=== PATIENT | male | born 1955 | race Caucasian/White ===

== ENCOUNTER 2016-11-27 13:20 | Inpatient (IN) | payer MEDICAID ==
[~2016-11-27] VITALS: Ht 210.8 cm; Wt 213.9 kg
[2016-11-27] VITALS (9 sets, daily range): BP systolic 104–132; BP diastolic 47–84; PULSE 68–118; RESP 12–22; O2SAT 91–99
[~2016-11-27 13:20] MED LIST: ASPI81TA3 PO; CHOL200047 PO; FERR325T6 PO; FRSM80T PO; MAGN30TA3 PO; MULT-1073 PO; NITR0.4T6 SL; OXYC-466 PO; OXYM10TA10 PO; PRD5T PO; TAMS0.4C98 PO; WARF10TA4 PO
[2016-11-27 13:45] LABS: EOSINOPHILS % (AUTO) 2.4 % (0-5); MONOCYTES % (AUTO) 12.9 % (4-12); Mean Corpuscular Hemoglobin 26.9 pg (27.0-35.0); Mean Corpuscular Volume 84.7 fL (81-100); Platelet Count 324 bil/L (150-400)
--- NOTE | 2016-11-27 13:53 | ED.REPORT ---
HPI-Dizziness / Weakness Date of Service Nov 27, 2016 ED Provider: History of Present Illness: 61yo morbidly obese male with several days of worsening weakness. He feels full after small oral intake. Had normal BM yesterday. he is currently being treated with cipro and wound vac for R ankle chronic ulcer. Nursing Notes Stated Complaint: WEAKNESS, CELLULITIS Chief Complaint: General Complaint Nursing Notes Reviewed: Yes Allergies: Coded Allergies: Penicillins (Verified Allergy, Unknown, Unknown, 08/01/16) Scheduled Aspirin Chew (Aspirin Chew) 81 Mg Chew 81 MG PO DAILY Cholecalciferol (Vitamin D3) (Vitamin D3) 2,000 Unit Capsule 2,000 UNIT PO DAILY Ciprofloxacin (Ciprofloxacin) 750 Mg Tablet 750 MG PO BID Ferrous Sulfate (Ferrous Sulfate) 325 Mg Tablet.dr 325 MG PO BID Furosemide (Furosemide) 80 Mg Tab 80 MG PO BID Magnesium (Magnesium) 30 Mg Tablet 30 MG PO DAILY Multivits-Min/FA/Lycopene/Lut (Centrum Silver Tablet) 1 Each Tablet 1 EACH PO DAILY Oxymorphone (Oxymorphone) 10 Mg Tablet 10 MG PO BID Tamsulosin (Flomax) 0.4 Mg Capsule 0.4 MG PO HS Warfarin Sodium (Warfarin Sodium) 10 Mg Tablet 7.5 MG PO DAILY Scheduled PRN Nitroglycerin SL (Nitroglycerin SL) 0.4 Mg Tab.subl 0.4 MG SL Q5MIN PRN PRN For Chest Pain Prednisone (PredniSONE) 5 Mg Tab 5-10 MG PO DAILY PRN PRN RA flare up oxyCODONE-Acetaminophen 10-325 mg (oxyCODONE-Acetaminophen 10-325 mg) 1 Each Tablet 2 TABLET PO Q6H PRN PRN For Pain General Time Seen by MD: 13:46 Chief Complaint Other (generalized weakness) Hx Obtained From: Patient Arrived By: Walk-in Onset Occurred: 3 days ago Symptom Duration: Waxes and wanes Location: : No pain Severity: Current: No pain currently Recent Healthcare: Recent doctor visit, Previous diagnosis Similar Sx Previous: Yes Risk Factors CVA Risk Stratification Age >60 Anticoag/bleed diathesis Atrial fibrillation Diabetes mellitus Hypertension WALTER for STEMI DM / HTN / Angina (1), HR > 100 bpm (2) WALTER for STEMI Score: 3 pts (4.4% 30d mort) Past Medical History Past Medical History Past Medical History 1. Morbid obesity (BMI 51) -Largely immobile and in wheelchair 2. History of chronic right lower extremity DVT in July 2013. -Currently on Coumadin -Associated with chronic venous insufficiency 3. Stage III chronic kidney disease with baseline creatinine of around 1.5 4. Rheumatoid arthritis -Previously on prednisone 5. Type II diabetes mellitus -Diet managed 6. Atrial tachycardia with variable rate 7. Cardiomyopathy (LVEF 30-35%) -Unclear if ischemic or tachycardia induced. 8. Peripheral neuropathy 9. Charcot joint of left leg 10. History of BPH 11. History of atrial flutter ablation status post cardioversion in 2006 Reports: Congestive heart failure Past Surgical History hiatal hernia repair left arm fracture repair carpal tunnel kidney stone removal Cardiac ablation Family History noncontributory Smoking History Never Smoker Social History Drug Use: Denies drug use Other Social History: Local resident Ambulatory Status Wheelchair Review of Systems Constitutional: Denies: Chills, Fever Respiratory: Denies: Shortness of breath Cardiovascular: Reports: Chest pain, Edema GI: Reports: Abdominal pain, Denies: Bloody/tarry stool, Diarrhea, Hematemesis, Hematochezia, Vomiting Physical Exam Physical Exam Notes: R ankle wound vac noted Initial Vital Signs Vital Signs (First) Date Time Temp Pulse Resp B/P Pulse Ox O2 Delivery O2 Flow Rate FiO2 11/27/16 13:25 36.6 118 22 118/63 99 Room Air Initial VS: Reviewed, Vital signs abnormal General/Constitutional: Awake, Alert Appearance / Presentation: Positive: Debilitated, Obese, morbidly, Pale Respiratory / Chest: Breath sounds NL, Breath sounds = bilat, No respiratory distress Cardiovascular: Heart sounds NL Heart Rate / Rhythm: Positive: Tachycardia ENT: Airway patent, Mucous membranes moist, Pharynx NL Neck: Supple, No adenopathy, No JVD Abdomen: Soft, Non-tender Interpretation & Diagnostics Lab Results Interpretation Result Diagram: 11/27/16 1330 11/27/16 1330 Test 11/27/16 13:30 11/27/16 14:07 11/27/16 14:31 11/27/16 14:32 White Blood Count 5.8th/mm3 (3.8-10.1) Red Blood Count 4.43mil/mm3 (4.40-5.80) Hemoglobin 11.9g/dL (13.8-17.2) Hematocrit 37.5% (41.0-50.0) Mean Corpuscular Volume 84.7fL (81-100) Mean Corpuscular Hemoglobin 26.9pg (27.0-35.0) Mean Corpuscular Hemoglobin Concent 31.7% (32.0-37.0) Red Cell Distribution Width 15.4% (12.3-15.4) Platelet Count 324bil/L (150-400) Neutrophils (%) (Auto) 66.0% (40-74) Lymphocytes (%) (Auto) 15.5% (14-46) Monocytes (%) (Auto) 12.9% (4-12) Eosinophils (%) (Auto) 2.4% (0-5) Basophils (%) (Auto) 1.0% (0-3) Sodium Level 135mEq/L (134-144) Potassium Level 3.3mEq/L (3.5-5.2) Chloride Level 90mEq/L (97-108) Carbon Dioxide Level 27mmol/L (18-29) Blood Urea Nitrogen 30mg/dL (8-27) Creatinine 2.13mg/dL (0.76-1.27) Estimat Glomerular Filtration Rate 34mL/min (>59) Glucose Level 192mg/dL (60-99) Calcium Level 9.2mg/dL (8.5-10.1) Magnesium Level 2.0mg/dL (1.6-2.6) Total Bilirubin 0.5mg/dL (0.0-1.2) Aspartate Amino Transf (AST/SGOT) 35U/L (0-50) Alanine Aminotransferase (ALT/SGPT) 15U/L (0-44) Alkaline Phosphatase 87U/L (25-160) Total Protein 8.5g/dL (6.4-8.4) Albumin 3.4g/dL (3.4-5.0) Lactic Acid Level 2.8mmol/L (0.4-2.0) Prothrombin Time 24.9sec (8.1-12.5) Prothromb Time International Ratio 2.29ratio Troponin T 0.025ug/L (0.0-0.011) Lipase 25U/L (13-60) General Lab Results Interp 1: Labs reviewed ECG Interpretation ECG Interpretation: A-fib with a rate of 91 Normal intervals Normal axis with ST depression in V1, V2, V3 New changes from prior EKG in 08/01/2016 Time: 14:46 Interpreted by: ED physician Normal ECG Interpretation: Normal axis, Normal intervals X-Ray Chest Interpretation Chest Xray Interpretation: IMPRESSION: Acute disease is seen in the chest compared to previous x-rays. Dictated by: Dheeraj House M.D. on 11/27/2016 at 15:21 View: Portable, 1 view Interpretation / Wet Read by: Interpret - Radiologist X-Ray Abdominal Interpretation IMPRESSION: Acute disease is not seen in the flatplate of the abdomen. Previous right lower quadrant hernia repair. Dictated by: Dheeraj House M.D. on 11/27/2016 at 15:05 Study: KUB Interpretation / Wet Read by: Interpret - Radiologist Re-Eval/Medical Decision Med Decision/Clinical Course This is a chronically outpatient he is having difficulty staying hydrated. He now has acute renal failure. He was also complaining of some chest fullness after eating which should be cardiac in nature, his first troponin is somewhat elevated. It is a difficult to know what this one troponin means given his new renal failure, he will need to have his troponin trended. The patient is already on warfarin so was not started on heparin. The patient no longer has chest discomfort. He will need some hydration for his acute renal failure. According to him his other medical problems are stable for him and his leg is continuing to improve. Re-Evaluation/Progress : Time of Eval: 14:32 Patient Status: Condition unchanged Re-Evaluation/Progress Note: Pt. was rechecked and he is resting. RAHUL Martinez's history and physical exam reviewed. Pt updated of plan for admission. All concerns and questions have been addressed at this time. Consultation #1: Referral / Consult Name: Tripp Marquez MD Consulted With: Cardiology Call Returned at: 15:16 Broth Mixer: Will see patient, Agrees with eval, Agrees with plan Consultation #2: Referral / Consult Name: Mike Aquino MD Consulted With: Hospitalist Call Returned at: 15:37 Broth Mixer: Will see patient, Agrees with eval, Agrees with plan, Accepts admit Counseled Regarding: Diagnosis, Lab results, Need for admission Patient Discharge & Departure Impression: Primary Impression: ARF (acute renal failure) Acute renal failure type: unspecified Qualified Code: N17.9 - Acute kidney failure, unspecified Additional Impressions: Chest pain Chest pain type: unspecified Qualified Code: R07.9 - Chest pain, unspecified Leg wound, right Encounter type: initial encounter Qualified Code: S81.801A - Unspecified open wound, right lower leg, initial encounter Disposition: ADMITTED TO HOSPITAL Discharge Condition All VS Reviewed: Yes Referrals: Odilon Moore DO (PCP) Scribe Attestation Portions of this note were transcribed by Sandra Wilkes and Lucy Chin. I, (Dr. Krishnamurthy) personally performed the history, physical exam and medical decision- making; I reviewed and confirmed the accuracy of the information in the transcribed note. Signed by: Sandra Wilkes. 11/27/2016, 1620 Odilon Moore Christopher R PAC Nov 27, 2016 13:53 Lucy Gupta [Angelika] Nov 27, 2016 14:47 Sandra Wilkes Nov 27, 2016 15:59 Tiffany Krishnamurthy MD Nov 27, 2016 18:31
[2016-11-27] MEDS ORDERED: 0.9% Sodium Chloride 1,000 ML IV ONE (13:54)
[2016-11-27 14:39] LABS: INR 2.29 ratio
[2016-11-27] MEDS ORDERED: 0.9% Sodium Chloride 500 ML IV ONE (14:45)
[2016-11-27 14:46] LABS: TROPONIN T 0.025 ug/L (0.0-0.011)
[2016-11-27] MEDS ORDERED: Nitroglycerin 2% 1 Gm Ointment TOPICAL ONE (14:55)
--- NOTE | 2016-11-27 15:07 | DRSVH ---
PROCEDURE: X-RAY KUB ([id number]) INDICATIONS: pain TECHNIQUE: One view of the abdomen acquired. COMPARISON: None. FINDINGS: Surgical changes and devices: Markings consistent with hernia repair are present in the right lower a bdomen. Bowel: Bowel gas pattern is normal. Soft tissues: No suspicious abdominal calcifications. Visualized solid organ contours appear normal in size. Bones: No suspicious bony lesions. IMPRESSION: Acute disease is not seen in the flatplate of the abdomen. Previous right lower quadrant hernia repair. Dictated by: Dheeraj House M.D. on 11/27/2016 at 15:05 Approved by: Dheeraj House M.D. on 11/27/2016 at 15:05
--- NOTE | 2016-11-27 15:23 | DRSVH ---
PROCEDURE: X-RAY CHEST ONE VIEW, PORTABLE ([id number]) INDICATIONS: chest discomfort TECHNIQUE: One view of the chest was acquired. COMPARISON: [facility], CR, XR CHEST 1VW (PORTABLE), 02/28/2016, 3:19. [facility], CR, XR CHEST 1VW (PORTABLE), 08/04/2016, 15:31. FINDINGS: Chest rotated. Surgical changes and devices: library monitor leads are seen over the chest. Lungs and pleura: No pleural effusions or pneumothorax. Lungs are clear of acute changes. There are chronic changes at both lung bases.. Mediastinum: Mediastinal contours appear normal. Heart size is normal. Bones and chest wall: No suspicious bony lesions. Overlying soft tissues appear unremarkable. IMPRESSION: Acute disease is seen in the chest compared to previous x-rays. Dictated by: Dheeraj House M.D. on 11/27/2016 at 15:21 Approved by: Dheeraj House M.D. on 11/27/2016 at 15:21
[2016-11-27] MEDS ORDERED: Alum-Mag Hydrox-Simeth 30 mL Suspension PO PRN (16:20)
[2016-11-27] MEDS ORDERED: Polyethylene Glycol (PEG) 17 Gm Powder PO PRN (16:20)
[2016-11-27] MEDS ORDERED: Ondansetron 2 mg/mL 2 mL Inj IVPUSH PRN (16:20)
[2016-11-27] MEDS ORDERED: Potassium Chloride 20 mEq SR Tablet PO ONE (16:30)
[2016-11-27] MEDS ORDERED: oxyCODONE-Acetamin 10-325 mg Tablet PO PRN (16:35)
--- NOTE | 2016-11-27 17:03 | PCM.PHAPRO ---
Progress Date of Service: Nov 27, 2016 Requesting Provider: Arnoldo Millard DDS H/O A Fib, H/O DVT, H/O PE warfarin dosing inr range 2-3 will continue warfarin home dose warfarin 10mg po daily INR to be ordered daily Yoandy Dietz [facility] Nov 27, 2016 17:03
[2016-11-27] MEDS ORDERED: CIPR750T4 PO (18:18)
--- NOTE | 2016-11-27 19:53 | NUR ---
Admission note Report received from ED RN. Pt arrived to room 2025 via stretcher. Pt oriented to room, use of call light. Policies and procedure explained. Pt verbalized understanding. pt A&O x3, Assessment performed and vitals charted. Report given to oncoming RN.
[2016-11-27] MEDS: oxyCODONE-Acetamin 10-325 mg Tablet PO PRN (20:03)
[2016-11-27] MEDS ORDERED: OXYMORPHONE 10 MG PO SCH (20:30)
--- NOTE | 2016-11-27 20:40 | PCM.HPMED ---
Subjective Date of Service Nov 27, 2016 Primary Provider: Admitting Physician: Mike Aquino MD Primary Care Physician: Odilon Moore DO Attending Physician: Mike Aquino MD Admit Status: From the Emergency Department Chief Complaint: 1 week of progressively worsening weakness History of Present Illness: This is a 61-year-old male who is chronically ill but manages to live alone. Over the last week he has become more weak and presents with a complaint of chest pressure when eating. He says that has been around for 8 months but then also says that when he saw his doctor last a month ago he was not experiencing those symptoms. He describes watching TV and then fading out for 2 minutes, not knowing what happened during those 2 minutes. He says this has been worsening. The central chest pain is a tightening symptom that is relieved by belching, and is sometimes related to nausea. He also is disturbed by a painless gurgling that bothers him because he has never had it before. He has never been diagnosed with gastroparesis or heart disease. He has not been on a proton pump inhibitor or nausea medication. His main problem is Charcot joint with disability and persisting right lower leg open ulcer currently being treated with a wound VAC. Dr. Butterfield is his treating physician at the wound care center. 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 There has been no shortness of breath, fevers, dysuria, coughing or muscle aches. His initial troponin is mildly elevated at 0.025, his lactic acid level is also elevated. On EKG there are subtle ST segment depressions in leads V1, V2 and V3. His rhythm is atrial fibrillation with PVCs Review of Systems: Positive for weakness and chest pain. Negative for fevers, chills, sweats, vomiting, shortness of breath, coughing, muscle aches, joint pain, rashes, seizures, bleeding, depression, hearing loss, new allergies. Allergies Coded Allergies: Penicillins (Verified Allergy, Unknown, Unknown, 08/01/16) Home Medications Aspirin Chew (Aspirin Chew) 81 Mg Chew 81 MG PO DAILY Cholecalciferol (Vitamin D3) (Vitamin D3) 2,000 Unit Capsule 2,000 UNIT PO DAILY Ferrous Sulfate (Ferrous Sulfate) 325 Mg Tablet.dr 325 MG PO BID Furosemide (Furosemide) 80 Mg Tab 80 MG PO BID Magnesium (Magnesium) 30 Mg Tablet 30 MG PO DAILY Multivits-Min/FA/Lycopene/Lut (Centrum Silver Tablet) 1 Each Tablet 1 EACH PO DAILY Oxymorphone (Oxymorphone) 10 Mg Tablet 10 MG PO BID Tamsulosin (Flomax) 0.4 Mg Capsule 0.4 MG PO HS Warfarin Sodium (Warfarin Sodium) 10 Mg Tablet 10 MG PO DAILY Scheduled PRN Nitroglycerin SL (Nitroglycerin SL) 0.4 Mg Tab.subl 0.4 MG SL Q5MIN PRN PRN For Chest Pain Prednisone (PredniSONE) 5 Mg Tab 5-10 MG PO DAILY PRN PRN RA flare up oxyCODONE-Acetaminophen 10-325 mg (oxyCODONE-Acetaminophen 10-325 mg) 1 Each Tablet 2 TABLET PO Q6H PRN PRN For Pain PMH 1. Morbid obesity (BMI 51) -Largely immobile and in wheelchair 2. History of chronic right lower extremity DVT in July 2013. -Currently on Coumadin indefinitely -Associated with chronic venous insufficiency 3. Stage III chronic kidney disease with baseline creatinine of around 1.5 4. Rheumatoid arthritis -Previously on prednisone 5. Type II diabetes mellitus -Diet managed 6. Atrial tachycardia with variable rate 7. Cardiomyopathy (LVEF 30-35%) -Unclear if ischemic or tachycardia induced. 8. Peripheral neuropathy 9. Charcot joint of left leg 10. History of BPH 11. History of atrial flutter ablation status post cardioversion in 2006 12. Diabetes Type 2 on diet control 13. Chronic leg edema from Lymphedema . Surgical History Surgical History hiatal hernia repair left arm fracture repair carpal tunnel kidney stone removal Cardiac ablation Family History Family History His mother had heart failure Social History Hx Alcohol Use: No Hx Substance Use: No Hx Tobacco Use: No Smoking Status: Never Smoker Additional Information His attending is at the residency clinic in [place] Dr. Ramos Exam Vital Signs Vital Sign - Last Date Time Temp Pulse Resp B/P Pulse Ox O2 Delivery O2 Flow Rate FiO2 11/27/16 15:52 81 14 104/47 96 Room Air 11/27/16 13:25 36.6 Exam He is alert, oriented 3, in no apparent distress. He is 6 foot 11 inches and definitely needs the large bed he is using in the room. Pupils are equally round and reactive to light and accommodation. Extraocular muscles are intact. Sclera are pink and nonicteric. Throat looks normal. No lymph nodes are felt head, neck, supraclavicular area. There is no thyromegaly JVD is less than 6 cm No carotid bruits are heard Heart is regular rate and rhythm without murmur Lungs are clear to auscultation bilaterally Abdomen soft, bowel sounds positive, nontender, no organomegaly. Extremities are both abnormal. The left foot is obviously deformed and a Charcot pattern. There is a walking boot in place that extends up to the knee. This is well padded. The right foot is in a triple wrap with a wound VAC line going on to the lateral aspect of the foot where there is a small amount of dark drainage seeping through the layers of the wrap. There is no jaundice. Cranial nerves II through XII tested intact. Upper extremity strength is normal at 5 out of 5. There is no tremor. Lab and Diagnostics Labs Laboratory Tests 72 Hours Test 11/27/16 13:30 11/27/16 14:07 11/27/16 14:31 11/27/16 14:32 White Blood Count 5.8th/mm3 (3.8-10.1) Red Blood Count 4.43mil/mm3 (4.40-5.80) Hemoglobin 11.9g/dL (13.8-17.2) Hematocrit 37.5% (41.0-50.0) Mean Corpuscular Volume 84.7fL (81-100) Mean Corpuscular Hemoglobin 26.9pg (27.0-35.0) Mean Corpuscular Hemoglobin Concent 31.7% (32.0-37.0) Red Cell Distribution Width 15.4% (12.3-15.4) Platelet Count 324bil/L (150-400) Neutrophils (%) (Auto) 66.0% (40-74) Lymphocytes (%) (Auto) 15.5% (14-46) Monocytes (%) (Auto) 12.9% (4-12) Eosinophils (%) (Auto) 2.4% (0-5) Basophils (%) (Auto) 1.0% (0-3) Sodium Level 135mEq/L (134-144) Potassium Level 3.3mEq/L (3.5-5.2) Chloride Level 90mEq/L (97-108) Carbon Dioxide Level 27mmol/L (18-29) Blood Urea Nitrogen 30mg/dL (8-27) Creatinine 2.13mg/dL (0.76-1.27) Estimat Glomerular Filtration Rate 34mL/min (>59) Glucose Level 192mg/dL (60-99) Calcium Level 9.2mg/dL (8.5-10.1) Magnesium Level 2.0mg/dL (1.6-2.6) Total Bilirubin 0.5mg/dL (0.0-1.2) Aspartate Amino Transf (AST/SGOT) 35U/L (0-50) Alanine Aminotransferase (ALT/SGPT) 15U/L (0-44) Alkaline Phosphatase 87U/L (25-160) Total Protein 8.5g/dL (6.4-8.4) Albumin 3.4g/dL (3.4-5.0) Lactic Acid Level 2.8mmol/L (0.4-2.0) Prothrombin Time 24.9sec (8.1-12.5) Prothromb Time International Ratio 2.29ratio Troponin T 0.025ug/L (0.0-0.011) Lipase 25U/L (13-60) Result Diagram: 11/27/16 1330 11/27/16 1330 X-Rays, CTs and MRIs X-RAY CHEST ONE VIEW, PORTABLE ([id number]) INDICATIONS: chest discomfort TECHNIQUE: One view of the chest was acquired. COMPARISON: [facility], CR, XR CHEST 1VW (PORTABLE), 02/28/2016, 3: 19. [facility], CR, XR CHEST 1VW (PORTABLE), 08/04/2016, 15:31. FINDINGS: Chest rotated. Surgical changes and devices: quality assurance monitor leads are seen over the chest. Lungs and pleura: No pleural effusions or pneumothorax. Lungs are clear of acute changes. There are chronic changes at both lung bases.. Mediastinum: Mediastinal contours appear normal. Heart size is normal. Bones and chest wall: No suspicious bony lesions. Overlying soft tissues appear unremarkable. IMPRESSION: Acute disease is seen in the chest compared to previous x-rays. Dictated by: Dheeraj House M.D. on 11/27/2016 at 15:21 Additional Diagnostics: X-RAY KUB ([id number]) INDICATIONS: pain TECHNIQUE: One view of the abdomen acquired. COMPARISON: None. FINDINGS: Surgical changes and devices: Markings consistent with hernia repair are present in the right lower abdomen. Bowel: Bowel gas pattern is normal. Soft tissues: No suspicious abdominal calcifications. Visualized solid organ contours appear normal in size. Bones: No suspicious bony lesions. IMPRESSION: Acute disease is not seen in the flatplate of the abdomen. Previous right lower quadrant hernia repair. Dictated by: Dheeraj House M.D. on 11/27/2016 at 15:05 Assessment & Plan Weakness/Elevated Lactic Acid Level -Workup so far has not shown a clear cause other than his chronic illness factors. -Recheck pertinent labs in the morning. -completing 10 day course of Levaquin for his leg tomorrow. Postprandial Chest Tightness -Repeat troponin and evaluate for acute coronary syndrome although unlikely. -Begin treatment for potential acid reflux/gastroparesis with omeprazole and Reglan. -He reports a negative EGD and colonoscopy just 5 months ago at [facility]. -Consider gastric emptying study. Diet Controlled DM II -Follow blood sugars with correctional scale if needed. Right lower leg open wound -Continue wound care with podiatry -Continue wound VAC with dressing changes. ARR/hypokalemia -Repeat BMP in the morning. -Additional oral potassium tonight. Chronic right leg DVT/atrial tachycardia with variable rate -Continue therapeutic dosing with Coumadin. Chronic Lymphedema -Continue Lasix Hernando Aquino MD VTE Prophylaxis: Theraputic Anticoag with Warfarin Resuscitation Status: CPR: Attempt Resuscitation Mike Aquino MD Nov 27, 2016 16:34
[2016-11-28] VITALS (9 sets, daily range): BP systolic 106–123; BP diastolic 60–74; PULSE 63–94; RESP 16–19; O2SAT 95–98
[2016-11-28] MEDS: oxyCODONE-Acetamin 10-325 mg Tablet PO PRN ×4 (02:07→20:47)
--- NOTE | 2016-11-28 04:06 | NUR ---
Pain/Wound Vac Patient reporting 4/10 pain in his chronic wounds overnight. Percocet 10-325 given with no improvement in patient's subjective pain rating; patient states that he takes two tablets of this medication at home instead of one. MD paged regarding dosing of this medication. Per Dr. Aquino, dosing to remain at 1 tablet q 6 hours PRN due to patient's statement to the MD that he has been having episodes at home of "losing a few minutes" while watching TV; significant concern that patient is taking too much of his narcotic pain medications at home. Explained this to the patient, who felt that his episodes of apparent altered consciousness and memory are not related to his narcotic dosing. Patient has his personal wound vac on wound to right foot; he did not bring the power adapter for this piece of equipment and the battery has run down overnight. He states that he usually uses a wound vac provided by wound care during hospital stays. Advised that we would contact wound care in the morning to get a hospital wound vac set up for him. Continue to monitor.
[2016-11-28 04:55] LABS: INR 2.58 ratio
[2016-11-28 05:34] LABS: TROPONIN T 0.017 ug/L (0.0-0.011)
[2016-11-28] MEDS: Pantoprazole 40 mg ER24 Tablet PO SCH (08:26)
[2016-11-28] MEDS ORDERED: Non-Formulary Medication (Warfarin Sodium 10 MG) PO SCH (08:30)
[2016-11-28] MEDS ORDERED: MAGNESIUM 30 MG PO SCH (08:30)
[2016-11-28] MEDS ORDERED: [UNRECOGNIZED DRUG - MIXTURE] PO SCH (08:30)
--- NOTE | 2016-11-28 10:19 | NUR ---
AM Lasix PT states he takes 40mg Lasox BID, he was on 80 but his BP dropped too low so the tumbler plater said 40mg BID is fine. Administered 40mg this am, will mention to MD when rounding to clarify dosage.
[2016-11-28] MEDS ORDERED: Potassium Chloride 20 mEq/15 mL 15mL Oral Soln PO ONE (11:35)
--- NOTE | 2016-11-28 12:59 | NUR ---
Wound Care Wound evaluation order received , pt seen at bedside. Pt has been followed at the wound center for a lengthy period of time, Dr Butterfield managing his left ankle and Dr Cuellar managing his right lower leg ulcer. NPWT dressing removed from patients right lateral lower leg. Wound measures 12 cm x 5 cm x 0.1 cm. Base- 100% granular. Drainage- sanguineous, no odor. Periwound- intact, no induration, no erythema. Redressed wound with white foam to wound bed, 125 mmHg continuous therapy, a good seal was attained.
--- NOTE | 2016-11-28 14:05 | PCM.PHAPRO ---
Progress Date of Service: Nov 28, 2016 1 week of progressively worsening weakness Warfarin Management Per Pharmacy: Indication: DVT prophylaxis as patient has history of chronic L LE DVT (07/2013) , and stroke prophylaxis as patient now with atrial fibrillation ([id number] = 2) Goal INR: 2.0-3.0 Home Dose: Warfarin 7.5 mg PO daily Labs: Hgb/Hct: 11.9/37.5 Plt: 324 INR: 2.58 Drug-Drug Interactions: Cipro 750 mg PO BID (10 day course) Date -Nov 28-Nov INR 2.29 2.58 Warf Dose 10mg 6 MG Recommendation: Warfarin 6 mg PO x 1 tonight Pharmacy to continue to monitor for signs/symptoms of bleeding. Thank You, Alivia Ferreira, Pharm D. Alivia Ferreira Nov 28, 2016 14:05
[2016-11-28 14:34] LABS: APPEARANCE,URINE CLEAR (CLEAR,HAZY); COLOR,URINE STRAW (YELLOW); OCCULT BLOOD,URINE NEGATIVE (NEGATIVE); PH,URINE 6.5 (5.0-8.0); UROBILINOGEN,URINE NORMAL (NORMAL)
--- NOTE | 2016-11-28 14:38 | NUR ---
Post residual PT voided 350 out via urinal. I bladder scanned him and he had a post residual of 6mls. Will inform MD when rounding.
--- NOTE | 2016-11-28 16:55 | DRSVH ---
PROCEDURE: US ABDOMEN ([id number]) INDICATIONS: RAYMOND and RUQ pain TECHNIQUE: Real-time scanning was performed of the abdominal and retroperitoneal organs, with image documentatio n. COMPARISON: [facility], CT, CT ABD PELVIS W CON, 12/06/2015, 23:11. FINDINGS: Liver: Liver is normal in size and demonstrates diffuse increased echotexture. The right hepatic lo be is suboptimally visualized due to the patient's body habitus. Gallbladder: There are gallstones. The bladder wall is mildly thickened measuring 3.6 mm. No perichol ecystic fluid collection or sonographic Moeller sign. Biliary ducts: Intrahepatic bile ducts are non-dilated. Extrahepatic bile duct caliber is not visua lized. Pancreas: Pancreas is not visualized. Spleen: Spleen is enlarged measuring 16.9 cm with an estimated volume of 1081 cubic centimeter. Kidneys: Kidneys are normal in size and echotexture. Right kidney measures 15.9 cm long; left kidne y measures 12.7 cm long. Bilateral renal cortical thinning and increased cortical echogenicity. There are multiple renal calculi bilaterally. No hydronephrosis. There is a simple cyst in the inferior p ole of the right kidney measuring 7.0 x 5.4 x 6.5 cm. No solid masses. Aorta: Visualized aorta is normal in caliber at less than 3 cm. Iliacs: Proximal common iliac arteries are no visualized. IVC: Not visualized. Miscellaneous: No free abdominal fluid. IMPRESSION: 1. Limited examination due to morbid obesity. 2. Diffusely increased hepatic echotexture. This finding is most likely secondary to hepatic fatty i nfiltration although other hepatocellular disease may have a similar appearance. Recommend clinical c orrelation. 3. Cholelithiasis. There is mild gallbladder wall thickening but no pericholecystic fluid collection nor sonographic Moeller's sign. Cannot rule out early acute cholecystitis. 4. Splenomegaly. 5. Nephrolithiasis bilaterally. No hydronephrosis. 6. There is bilateral renal cortical thinning and increased renal cortical echogenicity suggesting me dical renal disease. 7. A large simple cyst in right kidney measuring 7.0 x 5.4 x 6.5 cm Dictated by: Naya Orr M.D. on 11/28/2016 at 16:54 Transcribed by: ELA on 11/28/2016 at 16:54 Approved by: Naya Orr M.D. on 11/28/2016 at 20:01
[2016-11-28] MEDS: 0.9% NaCl + KCl 20 mEq/L 1,000 ML IV SCH (16:56)
--- NOTE | 2016-11-28 17:12 | PCM.CHPMED ---
Subjective Date of Service: Nov 28, 2016 Primary Physician: Admitting Physician: Mike Aquino MD Primary Care Physician: Odilon Moore DO Attending Physician: Mike Aquino MD Chief Complaint: Chief Complaint: abdominal discomfort History of Present Illness: This is a very pleasant 61-year-old male with significant past medical history of chronic kidney disease stage III, type II diabetes, morbid obesity, hypertension, chronic systolic heart failure, presented to the hospital due to weakness and abdominal discomfort. Patient reports having abdominal discomfort and nausea for several months. He stated that it feels like he has stomach flu. He has no vomiting. He has early satiety. He has small portion of meals, more frequent. He does not know whether he has gall stone. He mentioned that he had upper EDG and colonoscopy performed months ago at [facility]. The result was nondiagnostic. He is also complaining of weakness. His initial BP was on the low side. He has been on lasix 80 mg BID for chronic LE edema. He was told he has stage 3 CKD, GFR 50%. Per record, his baseline serum cr was 1-1.2. He came in with serum cr of 2.13. The value today was 1.84. He has no F/C/CP/SOB. He has small BM every day. PMH 1. Morbid obesity 2. History of chronic right lower extremity DVT in July 2013. 3. Stage III chronic kidney disease 4. Rheumatoid arthritis 5. Type II diabetes mellitus 6. Cardiomyopathy (LVEF 30-35%) 7. Peripheral neuropathy 8. Charcot joint 9. History of BPH 10. History of atrial flutter ablation status post cardioversion in 2006 11. Chronic leg edema from Lymphedema Surgical History hiatal hernia repair left arm fracture repair carpal tunnel kidney stone removal Cardiac ablation Right Leg injury with hematoma status post right lower extremity hematoma evacuation, Family History His mother had heart failure Social History Hx Alcohol Use: No Hx Substance Use: No Hx Tobacco Use: No Smoking Status: Never Smoker Additional Information PMH Bedside Blood Glucose: 121 Allergies: Coded Allergies: Penicillins (Verified Allergy, Unknown, Unknown, 08/01/16) Social History Hx Alcohol Use: NoHx Substance Use: NoHx Tobacco Use: No Smoking Status: Never Smoker Exam Vital Signs Vital Sign - Last Date Time Temp Pulse Resp B/P Pulse Ox O2 Delivery O2 Flow Rate FiO2 11/28/16 16:40 36.5 70 16 117/72 98 Room Air Intake and Output 11/27/16 11/27/16 11/28/16 Cumulative From/Thru 15:00 23:00 07:00 11/27/16 13:25 - 11/28/16 05:25 Intake Total 500 ml 690 ml 1190 ml Output Total 400 ml 1250 ml 1650 ml Balance 100 ml -560 ml -460 ml Intake Oral 690 ml 690 ml IV Total 500 ml 500 ml Output Urine Total 400 ml 1250 ml 1650 ml General: Alert, Oriented X3, Cooperative, Tall and Obese man in no distress Eyes: PERRLA, Scleral Anicteric Mouth: Mouth Normal, Mucous Membranes Moist/[place] Neck: Supple, no Thyromegaly, trachea central. Chest & Lungs: Clear to auscultation & percussion, No adventitious breath sounds, no crackles, no wheeze Cardiovascular: Normal S1, Normal S2, No Murmurs/Rubs/Gallops, Regular Rate/ Rhythm Pulses: Radial (present and equal), Dorsalis Pedi (present and equal) Abdomen: Soft, Non-tender, Non-distended, Normoactive bowel tones. Musculoskeletal: Unremarkable. Normal range of motion, no swollen or erythematous joints Extremities: dry, flaky skin, BLAZE wrap on right leg, boot on left leg. Skin: No rashes. Warm and dry, no erythematous areas Neurological: Grossly neurologically intact, has generalized weakness, Normal Speech, Sensation Intact Lymphatic: Lymph nodes Cervical and Axillary not palpable. Lab and Diagnostics Result Diagram: 11/27/16 1330 11/28/16 0425 Assessment & Plan Assessment 1. RAYMOND on CKD - on lasix 80 mg BID. - came in with weakness, hypokalemia, hyponatremia, hypochloremia. - hypotension noted in ED. PVR 6 ml. - The etiology is likely related to overdiuresis. plan: hold lasix. start NS+KCL20 meq 80 ml/hr. repeat BMP, Mg, PO4 in am. renal US. 2. Abd discomfort - assoc with nausea, early satiety - Abd US - result pending. 3. Chronic LE edema due to multifactorial: fluid retention, venous insufficiency , lymphedema: resolved. 4.Morbid obesity, wheelchair bound 5. DM-2 6. Chronic DVT 7. HFrEF 8. BPH. Thank you for allowing me to participate in the care of your patient. We will follow along with you. Problems: VTE Prophylaxis: Theraputic Anticoag with Warfarin VTE Mechanical Devices: Intermittant Pneumatic CD Resuscitation Status: CPR: Attempt Resuscitation Musa Cha MD Nov 28, 2016 17:12 Musa Cha MD Nov 28, 2016 17:12
--- NOTE | 2016-11-28 18:40 | PCM.PNMED ---
Subjective Date of Service Nov 28, 2016 Subjective Hospital Day 2 HPI Patient is a 61 y.o. M with PMH Morbid obesity, Chronic right lower DVT on chronic anticoagulation, CKD III, RA, DM II diet controlled, Atrial tachycardia with variable rate, Cardiomyopathy EF 30-35%), Peripheral neuropathy, Charcot joint of left leg. Patient stated that over the past week he has become more weak and presents with a complaint of chest pressure when eating. He said that the chest discomfort has been present for about 8 months on and off, he had GI upper and lower endoscopy done at [facility] but does not remember the results. The central chest pain described as a tightening symptom that is relieved by belching, and is sometimes related to nausea. At time of presentation to the ED his EKG showed ST depression in leads V1,V2,V3. The last episode of weakness he has experienced was described as watching TV and then fading out for 2 minutes, not knowing what happened during those 2 minutes. No overnight events reported. Today patient stated that he is still experiencing chest pressure and tightness with eating, associated with fullness, early satiety, and abdominal pain, constipation. Patient denies SOB, orthopnea, PND, vomiting, diarrhea. ROS: Positive for weakness and chest pain. Negative for fevers, chills, sweats, vomiting, shortness of breath, coughing, muscle aches, joint pain, rashes, seizures, bleeding, depression, hearing loss, new allergies. Exam Vital Signs Vital Sign - Last Date Time Temp Pulse Resp B/P Pulse Ox O2 Delivery O2 Flow Rate FiO2 11/28/16 12:30 36.7 82 16 123/74 97 Room Air Intake and Output 11/27/16 11/27/16 11/28/16 Cumulative From/Thru 15:00 23:00 07:00 11/27/16 13:25 - 11/28/16 05:25 Intake Total 500 ml 690 ml 1190 ml Output Total 400 ml 1250 ml 1650 ml Balance 100 ml -560 ml -460 ml Intake Oral 690 ml 690 ml IV Total 500 ml 500 ml Output Urine Total 400 ml 1250 ml 1650 ml Exam General: Alert, Oriented X3, Cooperative, No Acute Distress, Morbid obesity Head: Normocephalic, atraumatic Eyes: PERRLA, EOMI. ENT: Mucous Membranes Moist/[place] Chest & Lungs: Wide A-P diameter, Clear to auscultation bilaterally, diminished at bases bilaterally with no crackles, wheezes, or rhonchi. Cardiovascular: Regular Rate/Rhythm, Normal S1, Normal S2, No Murmurs/Rubs/ Gallops Abdomen: Right upper quadrant tenderness, Non-distended, No masses, Normoactive bowel tones, Soft Extremities: No cyanosis/clubbing/edema bilaterally Neurological: Grossly Neurologically Intact Lab and Diagnostics Laboratory Tests 72 Hours Test 11/27/16 13:30 11/27/16 14:07 11/27/16 14:31 11/27/16 14:32 White Blood Count 5.8th/mm3 (3.8-10.1) Red Blood Count 4.43mil/mm3 (4.40-5.80) Hemoglobin 11.9g/dL (13.8-17.2) Hematocrit 37.5% (41.0-50.0) Mean Corpuscular Volume 84.7fL (81-100) Mean Corpuscular Hemoglobin 26.9pg (27.0-35.0) Mean Corpuscular Hemoglobin Concent 31.7% (32.0-37.0) Red Cell Distribution Width 15.4% (12.3-15.4) Platelet Count 324bil/L (150-400) Neutrophils (%) (Auto) 66.0% (40-74) Lymphocytes (%) (Auto) 15.5% (14-46) Monocytes (%) (Auto) 12.9% (4-12) Eosinophils (%) (Auto) 2.4% (0-5) Basophils (%) (Auto) 1.0% (0-3) Sodium Level 135mEq/L (134-144) Potassium Level 3.3mEq/L (3.5-5.2) Chloride Level 90mEq/L (97-108) Carbon Dioxide Level 27mmol/L (18-29) Blood Urea Nitrogen 30mg/dL (8-27) Creatinine 2.13mg/dL (0.76-1.27) Estimat Glomerular Filtration Rate 34mL/min (>59) Glucose Level 192mg/dL (60-99) Calcium Level 9.2mg/dL (8.5-10.1) Magnesium Level 2.0mg/dL (1.6-2.6) Total Bilirubin 0.5mg/dL (0.0-1.2) Aspartate Amino Transf (AST/SGOT) 35U/L (0-50) Alanine Aminotransferase (ALT/SGPT) 15U/L (0-44) Alkaline Phosphatase 87U/L (25-160) Total Protein 8.5g/dL (6.4-8.4) Albumin 3.4g/dL (3.4-5.0) Lactic Acid Level 2.8mmol/L (0.4-2.0) Prothrombin Time 24.9sec (8.1-12.5) Prothromb Time International Ratio 2.29ratio Troponin T 0.025ug/L (0.0-0.011) Lipase 25U/L (13-60) Test 11/28/16 04:25 Prothrombin Time 28.1sec (8.1-12.5) Prothromb Time International Ratio 2.58ratio Sodium Level 135mEq/L (134-144) Potassium Level 3.0mEq/L (3.5-5.2) Chloride Level 90mEq/L (97-108) Carbon Dioxide Level 26mmol/L (18-29) Blood Urea Nitrogen 29mg/dL (8-27) Creatinine 1.84mg/dL (0.76-1.27) Estimat Glomerular Filtration Rate 40mL/min (>59) Glucose Level 134mg/dL (60-99) Lactic Acid Level 1.5mmol/L (0.4-2.0) Calcium Level 8.8mg/dL (8.5-10.1) Troponin T 0.017ug/L (0.0-0.011) Result Diagram: 11/27/16 1330 11/28/16 0425 X-Rays, CTs and MRIs X-RAY CHEST IMPRESSION: Acute disease is seen in the chest compared to previous x-rays. Dictated by: Dheeraj House M.D. on 11/27/2016 at 15:21 Additional Diagnostics X-RAY KUB IMPRESSION: Acute disease is not seen in the flatplate of the abdomen. Previous right lower quadrant hernia repair. Dictated by: Dheeraj House M.D. on 11/27/2016 at 15:05 Abdominal U/S IMPRESSION: 1. Limited examination due to morbid obesity. 2. Diffusely increased hepatic echotexture. This finding is most likely secondary to hepatic fatty infiltration although other hepatocellular disease may have a similar appearance. Recommend clinical correlation. 3. Cholelithiasis. There is mild gallbladder wall thickening but no pericholecystic fluid collection nor sonographic Moeller's sign. Cannot rule out early acute cholecystitis. 4. Splenomegaly. This finding is nonspecific and may be secondary to infectious , inflammatory or neoplastic etiology. Recommend clinical correlation and follow up. 5. Nephrolithiasis bilaterally. No hydronephrosis. There is bilateral renal cortical thinning. 6. A large simple cyst in right kidney measuring 7.0 x 5.4 x 6.5 cm Dictated by: Naya Orr M.D. on 11/28/2016 at 16:54 Transcribed by: ELA on 11/28/2016 at 16:54 Assessment & Plan Patient is a 61 y.o. M PMH chronic right lower DVT on chronic anticoagulation, CKD III, RA, DM II diet controlled, Atrial tachycardia with variable rate, Cardiomyopathy EF 30-35%), Peripheral neuropathy, Charcot joint of left leg. of admitted for new onset RAYMOND, chest pain with ST changes on EKG. Hospital Day 2 1. Weakness/Elevated Lactic Acid Level, present on admission, improving - likely related to left lower leg cellulitis - completing 10 day course of Levaquin for his leg day 10 tomorrow. 2. Postprandial Chest Tightness -Repeat troponin, r/o acute coronary syndrome -Begin treatment for potential acid reflux/gastroparesis with omeprazole and Reglan, cholelithiasis, -He reports a negative EGD and colonoscopy just 5 months ago at [facility]. -Consider gastric emptying study. -Abdominal U/S ordered, Evidence of cholelithiasis 3. Diet Controlled DM II, Chronic, present on admission -Follow blood sugars with correctional scale if needed. 4. Right lower leg open wound, present on admission, -Continue wound care with podiatry -Continue wound VAC with dressing changes. 5. RAYMOND, new onset with hypokalemia, present on admission - UA ordered with lytes, creatine, protein - Abdominal U/S ordered to assess gallbladder and Kidneys - Post void bladder scan ordered - Continue to monitory patient I/O's - Consult Nephrology, we appreciate their input and expertise on this case - Repeat BMP AM - Additional oral potassium tonight 20 meq PO. 6.Chronic right leg DVT/atrial tachycardia with variable rate -Continue therapeutic dosing with Coumadin. 7.Chronic Lymphedema -Continue Lasix VTE Prophylaxis: Theraputic Anticoag with Warfarin VTE Mechanical Devices: Intermittant Pneumatic CD Resuscitation Status: CPR: Attempt Resuscitation Attending Statement The patient was seen and examined together with Dr. Scott on 11/28/2016 and I agree with the history, exam and plan as outlined in the note above. . CHAY SCOTT DO Nov 28, 2016 13:52 Néstor Castillo MD Nov 29, 2016 18:41
[2016-11-28] MEDS ORDERED: oxyCODONE-Acetamin 10-325 mg Tablet PO PRN (20:30)
[2016-11-29] MEDS: oxyCODONE-Acetamin 10-325 mg Tablet PO PRN ×4 (01:56→16:15)
[2016-11-29 04:05] VITALS: BP 140/84; PULSE 71; RESP 18; O2SAT 98
[2016-11-29] MEDS: 0.9% NaCl + KCl 20 mEq/L 1,000 ML IV SCH (04:59)
[2016-11-29 05:30] LABS: BASOPHILS % (AUTO) 0.6 % (0-3); EOSINOPHILS % (AUTO) 3.1 % (0-5); MONOCYTES % (AUTO) 20.4 % (4-12); Mean Corpuscular Hemoglobin 26.4 pg (27.0-35.0); Mean Corpuscular Volume 83.5 fL (81-100); NEUTROPHILS % (AUTO) 54.3 % (40-74); Platelet Count 189 bil/L (150-400)
--- NOTE | 2016-11-29 06:00 | NUR ---
Pain/Turns/Wound Vac Pt given PRN Percocet x2 for 4-6/10 pain varying from back to upper and lower extremities. Pt able to sleep intermittently after media traffic manager. Pt states intermittent sleep is normal for him and would decline any sleep aids. Pt refuses turns but is able to turn self independently with assessments and when using bedpan. No signs of pressure wounds. Right lower leg wound vac patent and draining minimal sero-sanguineous drainage.
[2016-11-29 07:30] VITALS: BP 116/72; PULSE 75; RESP 24; O2SAT 96
[2016-11-29] MEDS: Pantoprazole 40 mg ER24 Tablet PO SCH (07:41)
[2016-11-29 08:00] VITALS: PULSE 87
[2016-11-29 11:35] LABS: INR 2.76 ratio
[2016-11-29] MEDS ORDERED: Potassium Chloride 20 mEq SR Tablet PO ONE (11:40)
[2016-11-29 12:10] VITALS: BP 122/75; PULSE 74; RESP 18; O2SAT 98
--- NOTE | 2016-11-29 12:15 | NUR ---
Social Work Note: Screen Note/Discharge Planning Data& Assessment: EMR reviewed. SW also met with pt at bedside to discuss discharge planning, SW role explained Juan Ramon Titus is a 61 year old male admitted on 11/27/2016 for acute renal failure and chest pain. Pt has [facility] Medicaid insurance and sees Odilon Armendariz DO for primary care. Pt lives in [place] and is open with Nery CEDEÑO, IRENE khalil and is a wheelchair at baseline. . H&P faxed to IRENE Vázquez CM. Nery CEDEÑO provided access Pt usually transports by BLS with help from the fire dept. Pt explained this is how he plans to transport home again. Pt denies any other needs. No other discharge needs identified. SW to continue to follow if any other needs arise. Plan: Anticipated discharge home via BLS when medically ready with resume IRENE khalil and Nery CEDEÑO. Pt denies any other needs. No other discharge needs identified. SW to continue to follow if any other needs arise. CATARINO Tobias
--- NOTE | 2016-11-29 15:16 | PCM.DIMED ---
Bijal Rodriguez DO 11/29/16 1454: Discharge Instructions Date of Service Nov 29, 2016 Dates of Hospitalization Nov 27, 2016 at 15:48 Discharge Diagnosis Discharge Diagnosis 1. Weakness/Elevated Lactic Acid Level, present on admission, improving 2. Postprandial Chest Tightness 3. Cholelithiasis 4. Diet Controlled DM II, Chronic, present on admission 5. Right lower leg open wound, present on admission, 6. RAYMOND, new onset with hypokalemia, present on admission 7.Chronic right leg DVT/atrial tachycardia with variable rate 8.Chronic Lymphedema Medication Instructions Please do not take your Lasix until you see your PCP. Follow up with your PCP by the end of the week. Diet Heart Healthy, Diabetic Activity Other (Home health PT and wound care) Call your provider Fever or Chills, Bleeding Patient Instructions Please follow up with your PCP by the end of the week. He will decide if you should be restarted on Lasix and what dose. You will also need a lab draw: Please do a BMP the day before seeing your PCP. Please follow up with your PCP regarding a referral for surgery about your gall stones. Please follow up with wound care with podiatry and home health wound care as needed. Follow-up Provider: Chan Saldana Robert W MD 11/29/16 1842: Discharge Instructions Attending's Statement The patient was seen and examined together with Dr. Rodriguez on 11/29/2016 and I agree with the history, exam and plan as outlined in the note above. . Bijal Rodriguez DO Nov 29, 2016 14:54 Néstor Castillo MD Nov 29, 2016 18:42
--- NOTE | 2016-11-29 15:19 | NUR ---
Arranged S transport for 1744 via [facility], Haim [place] dispatcher is sending a bariatric rig and 4 [employer] RESIDENTIAL DRIVER. Haim will also be calling the local fire department and ask for assistance in this transfer home. Updated SHINE WORKER
--- NOTE | 2016-11-29 15:56 | NUR ---
Social Work Note: Discharge Data& Assessment: EMR reviewed. Per pt is medically ready to discharge home via BLS. Juan Ramon Titus is a 61 year old male admitted on 11/27/2016 for chest pain and acute renal failure. Per pt is medically improved and ready to discharge home. H&P faxed to IRENE Blake. Nery notified of pt discharge. BLS transport arranged for 5:15p.m RN and pt notified. Pt denies any other needs. No other discharge needs identified. All updated and agreeable to plan. Plan: Per pt is medically ready to discharge home via BLS at 5:15p.m. Pt denies any other needs. No other discharge needs identified. All updated and agreeable to plan. CATARINO Tobias
--- NOTE | 2016-11-29 17:47 | NUR ---
Discharge The pt left the unit via stretcher with [facility] transport team. He is being transported home. The pt left the unit at 1745 with all his belongings and his discharge packet of info. The pt verbalized understanding of all educational material presented, including follow up appointment information. The pt left A&O x3 with vitals WNL.
--- NOTE | 2016-11-29 18:25 | PCM.PNMED ---
Subjective Date of Service Nov 29, 2016 Subjective Hospital Day 3 HPI Patient is a 61 y.o. M with PMH Morbid obesity, Chronic right lower DVT on chronic anticoagulation, CKD III, RA, DM II diet controlled, Atrial tachycardia with variable rate, Cardiomyopathy EF 30-35%), Peripheral neuropathy, Charcot joint of left leg. Patient stated that over the past week he has become more weak and presents with a complaint of chest pressure when eating. He said that the chest discomfort has been present for about 8 months on and off, he had GI upper and lower endoscopy done at [facility] but does not remember the results. The central chest pain described as a tightening symptom that is relieved by belching, and is sometimes related to nausea. At time of presentation to the ED his EKG showed ST depression in leads V1,V2,V3. The last episode of weakness he has experienced was described as watching TV and then fading out for 2 minutes, not knowing what happened during those 2 minutes. No overnight events reported. Today patient stated that he is not currently experiencing abdominal pain and his appetite is returning, this morning he was able to eat breakfast and did not experience any chest pressure or early satiety with this meal. He stated that the abdominal pain was worst with eating steak and other fatty foods, which he has been trying to avoid for the past few months. He stated that his pain has been under control but he has not had a bowel movement since he has been in the hospital. ROS negative except as mentioned above Exam Vital Signs Vital Sign - Last Date Time Temp Pulse Resp B/P Pulse Ox O2 Delivery O2 Flow Rate FiO2 11/29/16 04:05 36.7 71 18 140/84 98 Room Air Intake and Output 11/28/16 11/28/16 11/29/16 Cumulative From/Thru 15:00 23:00 07:00 11/27/16 13:25 - 11/29/16 05:23 Intake Total 440 ml 870 ml 2500 ml Output Total 350 ml 1375 ml 3375 ml Balance 90 ml -505 ml -875 ml Intake Oral 440 ml 870 ml 2000 ml IV Total 500 ml Output Urine Total 350 ml 1375 ml 3375 ml # Voids 1 1 # Bowel Movements 0 0 Exam General: Alert, Oriented X3, Cooperative, No Acute Distress, Morbid obesity Head: Normocephalic, atraumatic Eyes: PERRLA, EOMI. ENT: Mucous Membranes Moist/[place] Chest & Lungs: Wide A-P diameter, Clear to auscultation bilaterally, diminished at bases bilaterally with no crackles, wheezes, or rhonchi. Cardiovascular: Regular Rate/Rhythm, Normal S1, Normal S2, No Murmurs/Rubs/ Gallops Abdomen: Non tender, Non-distended, No masses, Normoactive bowel tones, Soft Extremities: No cyanosis/clubbing/edema bilaterally Neurological: Grossly Neurologically Intact IVs and Medications Medications Reviewed: Medications were reviewed in detail Lab and Diagnostics Result Diagram: 11/29/1651811/[id number]/16518 X-Rays, CTs and MRIs X-RAY CHEST IMPRESSION: Acute disease is seen in the chest compared to previous x-rays. Dictated by: Dheeraj House M.D. on 11/27/2016 at 15:21 Additional Diagnostics X-RAY KUB IMPRESSION: Acute disease is not seen in the flatplate of the abdomen. Previous right lower quadrant hernia repair. Dictated by: Dheeraj House M.D. on 11/27/2016 at 15:05 Abdominal U/S IMPRESSION: 1. Limited examination due to morbid obesity. 2. Diffusely increased hepatic echotexture. This finding is most likely secondary to hepatic fatty infiltration although other hepatocellular disease may have a similar appearance. Recommend clinical correlation. 3. Cholelithiasis. There is mild gallbladder wall thickening but no pericholecystic fluid collection nor sonographic Moeller's sign. Cannot rule out early acute cholecystitis. 4. Splenomegaly. This finding is nonspecific and may be secondary to infectious , inflammatory or neoplastic etiology. Recommend clinical correlation and follow up. 5. Nephrolithiasis bilaterally. No hydronephrosis. There is bilateral renal cortical thinning. 6. A large simple cyst in right kidney measuring 7.0 x 5.4 x 6.5 cm Dictated by: Naya Orr M.D. on 11/28/2016 at 16:54 Transcribed by: ELA on 11/28/2016 at 16:54 Assessment & Plan Patient is a 61 y.o. M PMH chronic right lower DVT on chronic anticoagulation, CKD III, RA, DM II diet controlled, Atrial tachycardia with variable rate, Cardiomyopathy EF 30-35%), Peripheral neuropathy, Charcot joint of left leg. of admitted for new onset RAYMOND, chest pain with ST changes on EKG. Hospital Day 3 1. Postprandial Chest Tightness, present on admission, improving -Repeat troponin, r/o acute coronary syndrome -Begin treatment for potential acid reflux/gastroparesis with omeprazole and Reglan, cholelithiasis, -He reports a negative EGD and colonoscopy just [address] [facility]. -Consider gastric emptying study. -Abdominal U/S ordered, Evidence of cholelithiasis and bilateral nephrolithiasis 2. RAYMOND, new onset with hypokalemia, present on admission, improving - RAYMOND likely due to over diuresis - 11/29/16 Na 136 K 3.3 Cl 94 CO2 28 BUN 24 Creatine 1.64 - UA shoeed Creatine 85, protein < 4, Na 38, K 47.3 Pr/Cr 0.05 - Abdominal U/S ordered to assess gallbladder and Kidneys - Post void bladder scan ordered, no residual - Consult Nephrology, we appreciate their input and expertise on this case 3. Hypokalemia, present on admission, improving - Likely due to over diuresis - K 11/29/16 3.3 - Continue oral potassium tonight 20 meq PO x 2 - Hold Lasix until follow up with PCP, reccomend decreasing dose to 40 mg once daily 4. Weakness/Elevated Lactic Acid Level, present on admission, Resolved - likely related to left lower leg cellulitis - completing 10 day course of Levaquin for his leg day 10 tomorrow. - Lactic acid 11/29/16 2.0 5. Diet Controlled DM II, Chronic, present on admission, stable -Follow blood sugars with correctional scale if needed. 6. Right lower leg open wound, present on admission, stable -Continue wound care with podiatry -Continue wound VAC with dressing changes. 7.Chronic right leg DVT/atrial tachycardia with variable rate, stable -Continue therapeutic dosing with Coumadin. 8.Chronic Lymphedema - Hold lasix until follow up with PCP Disposition: Likely discharge today or early tomorrow pending transportation. VTE Prophylaxis: Theraputic Anticoag with Warfarin VTE Mechanical Devices: Intermittant Pneumatic CD Resuscitation Status: CPR: Attempt Resuscitation Attending Statement The patient was seen and examined together with Dr. Scott on 11/29/2016 and I agree with the history, exam and plan as outlined in the note above. . CHAY SCOTT DO Nov 29, 2016 06:43 Néstor Castillo MD Dec 02, 2016 15:51
--- NOTE | 2016-11-29 18:25 | PCM.DC.MED ---
Discharge Summary Date of Service Nov 29, 2016 Dates of Hospitalization Date of Hospital Admission Nov 27, 2016 at 15:48 Date of Discharge: Nov 29, 2016 Providers: Admitting Physician: Mike Aquino MD Primary Care Physician: Odilon Moore DO Attending Physician: Mike Aquino MD Diagnosis at Time of Discharge Diagnosis at Time of Discharge 1. Weakness/Elevated Lactic Acid Level, present on admission, improving 2. Postprandial Chest Tightness 3. Cholelithiasis 4. Diet Controlled DM II, Chronic, present on admission 5. Right lower leg open wound, present on admission, 6. RAYMOND, new onset with hypokalemia, present on admission 7.Chronic right leg DVT/atrial tachycardia with variable rate 8.Chronic Lymphedema Procedures XRay, CTs & MRIs X-RAY CHEST IMPRESSION: Acute disease is seen in the chest compared to previous x-rays. Dictated by: Dheeraj House M.D. on 11/27/2016 at 15:21 Other Diagnostics X-RAY KUB IMPRESSION: Acute disease is not seen in the flatplate of the abdomen. Previous right lower quadrant hernia repair. Dictated by: Dheeraj House M.D. on 11/27/2016 at 15:05 Abdominal U/S IMPRESSION: 1. Limited examination due to morbid obesity. 2. Diffusely increased hepatic echotexture. This finding is most likely secondary to hepatic fatty infiltration although other hepatocellular disease may have a similar appearance. Recommend clinical correlation. 3. Cholelithiasis. There is mild gallbladder wall thickening but no pericholecystic fluid collection nor sonographic Moeller's sign. Cannot rule out early acute cholecystitis. 4. Splenomegaly. This finding is nonspecific and may be secondary to infectious , inflammatory or neoplastic etiology. Recommend clinical correlation and follow up. 5. Nephrolithiasis bilaterally. No hydronephrosis. There is bilateral renal cortical thinning. 6. A large simple cyst in right kidney measuring 7.0 x 5.4 x 6.5 cm Dictated by: Naya Orr M.D. on 11/28/2016 at 16:54 Transcribed by: ELA on 11/28/2016 at 16:54 Brief History This is a very pleasant 61-year-old male with significant past medical history of chronic kidney disease stage III, type II diabetes, morbid obesity, hypertension, chronic systolic heart failure, presented to the hospital due to weakness and abdominal discomfort. Patient reports having abdominal discomfort and nausea for several months. He stated that it feels like he has stomach flu. He has no vomiting. He has early satiety. He has small portion of meals, more frequent. He does not know whether he has gall stone. He mentioned that he had upper EDG and colonoscopy performed months ago at [facility]. The result was nondiagnostic. He is also complaining of weakness. His initial BP was on the low side. He has been on lasix 80 mg BID for chronic LE edema. He was told he has stage 3 CKD, GFR 50%. Per record, his baseline serum cr was 1-1.2. He came in with serum cr of 2.13. The value today was 1.84. He has no F/C/CP/SOB. He has small BM every day. PMH 1. Morbid obesity 2. History of chronic right lower extremity DVT in July 2013. 3. Stage III chronic kidney disease 4. Rheumatoid arthritis 5. Type II diabetes mellitus 6. Cardiomyopathy (LVEF 30-35%) 7. Peripheral neuropathy 8. Charcot joint 9. History of BPH 10. History of atrial flutter ablation status post cardioversion in 2006 11. Chronic leg edema from Lymphedema Surgical History hiatal hernia repair left arm fracture repair carpal tunnel kidney stone removal Cardiac ablation Right Leg injury with hematoma status post right lower extremity hematoma evacuation, Family History His mother had heart failure Social History Hx Alcohol Use: No Hx Substance Use: No Hx Tobacco Use: No Smoking Status: Never Smoker Additional Information Hospital Course Patient is a 61 y.o. M PMH chronic right lower DVT on chronic anticoagulation, CKD III, RA, DM II diet controlled, Atrial tachycardia with variable rate, Cardiomyopathy EF 30-35%), Peripheral neuropathy, Charcot joint of left leg. of admitted for new onset RAYMOND, chest pain with ST changes on EKG. Hospital Day 2 1. RAYMOND, new onset with hypokalemia, present on admission, improving - RAYMOND likely due to over diuresis - 11/29/16 Na 136 K 3.3 Cl 94 CO2 28 BUN 24 Creatine 1.64 - UA showed Creatine 85, protein < 4, Na 38, K 47.3 Pr/Cr 0.05 - Abdominal U/S ordered to assess gallbladder and Kidneys Evidence of cholelithiasis and nephrolithiasis without hydronephrosis - Post void bladder scan ordered, no residual - Consulted Nephrology, we appreciated their input and expertise on this case - Hold lasix until follow up with PCP - Please do a BMP the day before seeing your PCP. 2. Hypokalemia, present on admission, improving - Likely due to over diuresis - K 11/29/16 3.3 - Continue oral potassium tonight 20 meq PO x 2 - Hold Lasix until follow up with PCP 3.Weakness/Elevated Lactic Acid Level, present on admission, resolved - likely related to left lower leg cellulitis - completed 10 day course of Levaquin 4. Postprandial Chest Tightness, present on admission, resolved -Repeat troponin trended down, ACS unlikely to be cause of chest tightness -Begin treatment for potential acid reflux/gastroparesis with omeprazole and Reglan, cholelithiasis, -He reports a negative EGD and colonoscopy just [address] [facility]. -Consider gastric emptying study. -Abdominal U/S ordered, Evidence of cholelithiasis and nephrolithiasis, non acute without indications for immediate surgical intervention recommend that patient follow up on outpatient basis to address gallbladder disease. 5. Diet Controlled DM II, Chronic, present on admission, stable -Follow blood sugars with correctional scale if needed. 6. Right lower leg open wound, present on admission, stable -Follow up wound care with podiatry on out patient basis -Continue wound VAC with dressing changes on out patient basis 7.Chronic right leg DVT/atrial tachycardia with variable rate, stable -Continue therapeutic dosing with Coumadin on outpatient basis. 8.Chronic Lymphedema - Hold lasix until follow up with PCP Disposition:discharge to home today follow up with PCP by the end of the week Exam Vital Signs (Last) Date Time Temp Pulse Resp B/P Pulse Ox O2 Delivery O2 Flow Rate FiO2 11/29/16 12:10 37.0 74 18 122/75 98 Room Air Exam General: Alert, Oriented X3, Cooperative, No Acute Distress, Morbid obesity Head: Normocephalic, atraumatic Eyes: PERRLA, EOMI. ENT: Mucous Membranes Moist/[place] Chest & Lungs: Wide A-P diameter, Clear to auscultation bilaterally, diminished at bases bilaterally with no crackles, wheezes, or rhonchi. Cardiovascular: Regular Rate/Rhythm, Normal S1, Normal S2, No Murmurs/Rubs/ Gallops Abdomen: Non-tender, Non-distended, No masses, Normoactive bowel tones, Soft Extremities: No cyanosis/clubbing/edema bilaterally Neurological: Grossly Neurologically Intact Test 11/27/16 13:30 11/27/16 14:32 11/28/16 04:25 11/28/16 14:00 Hemoglobin A1c 6.0% (4.8-5.6) Magnesium Level 2.0mg/dL (1.6-2.6) Total Protein 8.5g/dL (6.4-8.4) Lipase 25U/L (13-60) Troponin T 0.017ug/L (0.0-0.011) Urine Color Straw (YELLOW) Urine Appearance Clear (CLEAR,HAZY) Urine pH 6.5 (5.0-8.0) Urine Specific [place] 1.015 (1.003-1.035) Urine Protein Negativemg/dL (NEG,TRACE) Urine Glucose (UA) Negativemg/dL (NEGATIVE) Urine Ketones Negativemg/dL (NEGATIVE) Urine Occult Blood Negative (NEGATIVE) Urine Nitrite Negative (NEGATIVE) Urine Bilirubin Negative (NEGATIVE) Urine Urobilinogen Normalmg/dL (NORMAL) Urine Leukocyte Esterase Negative (NEGATIVE) Urine RBC 0-2/hpf (0-2) Urine WBC 0-5/hpf (0-5) Urine Epithelial Cells Occasional/hpf (NONE-MOD) Urine Crystals None seen (NONE SEEN) Urine Bacteria None/hpf (NONE-FEW) Urine Hyaline Casts Occasional/lpf (NONE) Urine Granular Casts None seen (NONE SEEN) Urine Waxy Casts None seen (NONE SEEN) Urine Red Blood Cell Casts None seen (NONE SEEN) Urine White Blood Cell Casts None seen (NONE SEEN) Urine Mucus Present (None Seen) Urine Trichomonas None seen (NONE SEEN) Urine Yeast None (NONE SEEN) Urinalysis Comment None Urine Culture Reflexed Not indicated Urine Random Creatinine 85mg/dL (22-328) Urine Random Total Protein < 4mg/dL (0-15) Urine Random Sodium 38mEq/L Urine Random Potassium 43.7mEq/L Urine Protein/Creatinine Ratio < 0.05 Test 11/29/16 05:19 11/29/16 11:08 White Blood Count 3.2th/mm3 (3.8-10.1) Red Blood Count 4.05mil/mm3 (4.40-5.80) Hemoglobin 10.7g/dL (13.8-17.2) Hematocrit 33.8% (41.0-50.0) Mean Corpuscular Volume 83.5fL (81-100) Mean Corpuscular Hemoglobin 26.4pg (27.0-35.0) Mean Corpuscular Hemoglobin Concent 31.7% (32.0-37.0) Red Cell Distribution Width 15.4% (12.3-15.4) Platelet Count 189bil/L (150-400) Neutrophils (%) (Auto) 54.3% (40-74) Lymphocytes (%) (Auto) 20.1% (14-46) Monocytes (%) (Auto) 20.4% (4-12) Eosinophils (%) (Auto) 3.1% (0-5) Basophils (%) (Auto) 0.6% (0-3) Sodium Level 136mEq/L (134-144) Potassium Level 3.3mEq/L (3.5-5.2) Chloride Level 94mEq/L (97-108) Carbon Dioxide Level 28mmol/L (18-29) Blood Urea Nitrogen 27mg/dL (8-27) Creatinine 1.64mg/dL (0.76-1.27) Estimat Glomerular Filtration Rate 45mL/min (>59) Glucose Level 157mg/dL (60-99) Lactic Acid Level 2.0mmol/L (0.4-2.0) Calcium Level 8.5mg/dL (8.5-10.1) Total Bilirubin 0.4mg/dL (0.0-1.2) Aspartate Amino Transf (AST/SGOT) 31U/L (0-50) Alanine Aminotransferase (ALT/SGPT) 12U/L (0-44) Alkaline Phosphatase 73U/L (25-160) Albumin 2.9g/dL (3.4-5.0) Procalcitonin 0.14ng/mL (See Comment) Prothrombin Time 30.1sec (8.1-12.5) Prothromb Time International Ratio 2.76ratio Discharge Medications Discharge Medications Aspirin Chew (Aspirin Chew) 81 Mg Chew 81 MG PO DAILY Prescribed by: EMERITA CORCORAN MD Cholecalciferol (Vitamin D3) (Vitamin D3) 2,000 Unit Capsule 2,000 UNIT PO DAILY (Reported) Ferrous Sulfate (Ferrous Sulfate) 325 Mg Tablet.dr 325 MG PO BID (Reported) Magnesium (Magnesium) 30 Mg Tablet 30 MG PO DAILY (Reported) Multivits-Min/FA/Lycopene/Lut (Centrum Silver Tablet) 1 Each Tablet 1 EACH PO DAILY (Reported) Oxymorphone (Oxymorphone) 10 Mg Tablet 10 MG PO BID (Reported) Warfarin Sodium (Warfarin Sodium) 10 Mg Tablet 7.5 MG PO DAILY (Reported) As needed Nitroglycerin SL (Nitroglycerin SL) 0.4 Mg Tab.subl 0.4 MG SL Q5MIN PRN PRN For Chest Pain (Reported) Prednisone (PredniSONE) 5 Mg Tab 5-10 MG PO DAILY PRN PRN RA flare up (Reported ) oxyCODONE-Acetaminophen 10-325 mg (oxyCODONE-Acetaminophen 10-325 mg) 1 Each Tablet 2 TABLET PO Q6H PRN PRN For Pain (Reported) Additional med instructions Please do not take your Lasix until you see your PCP. Follow up with your PCP by the end of the week. Followup Plan Discharge Diet: Heart Healthy, Diabetic Discharge Activity: Other (Home health PT and wound care) Patient Instructions Please follow up with your PCP by the end of the week. He will decide if you should be restarted on Lasix and what dose. You will also need a lab draw: Please do a BMP the day before seeing your PCP. Please follow up with your PCP regarding a referral for surgery about your gall stones. Please follow up with wound care with podiatry and home health wound care as needed. Follow-up Provider: Chan Saldana DO Time spent Greater than 30 minutes was spent in preparation of discharge with greater than 50% of that time dedicated to patient counseling and coordination of care. . Attending Statement The patient was seen and examined together with Dr. Scott on 11/29/2016 and I agree with the history, exam and plan as outlined in the note above. . CHAY SCOTT DO Nov 29, 2016 16:23 Néstor Castillo MD Dec 02, 2016 15:51
== END 2016-11-29 17:52 | disposition home health service (06) | DRG 203 ==
LOC: SED 13:20 → EDBD 13:20 → PCC 15:48 → OBSVTOIN 15:48
PROVIDERS: ADMIT Family Medicine; ATTEND Family Medicine
DX: R07.89 Other chest pain (principal); N17.9 Acute kidney failure, unspecified; I82.591 Chronic embolism and thrombosis of other specified deep vein of right lower extremity; Z68.42 Body mass index [BMI] 45.0-49.9, adult; N18.3 Chronic kidney disease, stage 3 (moderate); E66.01 Morbid (severe) obesity due to excess calories; S81.801A Unspecified open wound, right lower leg, initial encounter; E87.6 Hypokalemia; Z79.01 Long term (current) use of anticoagulants; Z79.82 Long term (current) use of aspirin

== ENCOUNTER 2016-12-06 10:09 | Emergency (ER) | payer MEDICAID ==
[~2016-12-06 10:09] MED LIST changes: -FRSM80T PO; -TAMS0.4C98 PO
[2016-12-06 10:23] VITALS: BP 130/71; PULSE 95; RESP 17; O2SAT 98
--- NOTE | 2016-12-06 10:45 | ED.REPORT ---
HPI-Extremity Problem Lower Date of Service Dec 06, 2016 ED Provider: Sarai Rodas History of Present Illness: sent in by Dr. Cuellar. surgery for hematoma on right leg surgery about 6 to 8 weeks ago. on coumadin for hx of blood clot in right leg and irregular heartbeat. primary care is residency clinic. Seen in wound clinic today by Dr. Cuellar Nursing Notes Stated Complaint: RT LEG BLEEDING Chief Complaint: General Complaint Nursing Notes Reviewed: Yes Allergies: Coded Allergies: Penicillins (Verified Allergy, Unknown, Unknown, 12/06/16) Scheduled Aspirin Chew (Aspirin Chew) 81 Mg Chew 81 MG PO DAILY Cholecalciferol (Vitamin D3) (Vitamin D3) 2,000 Unit Capsule 2,000 UNIT PO DAILY Ferrous Sulfate (Ferrous Sulfate) 325 Mg Tablet.dr 325 MG PO BID Magnesium (Magnesium) 30 Mg Tablet 30 MG PO DAILY Multivits-Min/FA/Lycopene/Lut (Centrum Silver Tablet) 1 Each Tablet 1 EACH PO DAILY Oxymorphone (Oxymorphone) 10 Mg Tablet 10 MG PO BID Warfarin Sodium (Warfarin Sodium) 10 Mg Tablet 7.5 MG PO DAILY Scheduled PRN Nitroglycerin SL (Nitroglycerin SL) 0.4 Mg Tab.subl 0.4 MG SL Q5MIN PRN PRN For Chest Pain Prednisone (PredniSONE) 5 Mg Tab 5-10 MG PO DAILY PRN PRN RA flare up oxyCODONE-Acetaminophen 10-325 mg (oxyCODONE-Acetaminophen 10-325 mg) 1 Each Tablet 2 TABLET PO Q6H PRN PRN For Pain General Time Seen by MD: 10:44 Chief Complaint Other (bleeding concern) Hx Obtained From: Patient Past Medical History Past Medical History Notes: Recent Admit her November 29 for weakness and elevated lactic acid chronic right lower extremity weakness Past Medical History Past Medical History 1. Morbid obesity (BMI 51) -Largely immobile and in wheelchair 2. History of chronic right lower extremity DVT in July 2013. -Currently on Coumadin (also for Afib per other records) -Associated with chronic venous insufficiency 3. Stage III chronic kidney disease with baseline creatinine of around 1.5 4. Rheumatoid arthritis -Previously on prednisone 5. Type II diabetes mellitus -Diet managed 6. Atrial tachycardia with variable rate 7. Cardiomyopathy (LVEF 30-35%) -Unclear if ischemic or tachycardia induced. 8. Peripheral neuropathy 9. Charcot joint of left leg 10. History of BPH 11. History of atrial flutter ablation status post cardioversion in 2006 Reports: Congestive heart failure Past Surgical History hiatal hernia repair left arm fracture repair carpal tunnel kidney stone removal Cardiac ablation Family History noncontributory Smoking History Never Smoker Social History Drug Use: Denies drug use Other Social History: Local resident Ambulatory Status Wheelchair Review of Systems Basic Review of Systems Eyes: Vision NL, No discharge ENT: Hearing NL, No pain, No nasal congestion, No pharyngeal pain Respiratory: No shortness of breath, No cough, No wheeze Cardiovascular: No chest pain, No dyspnea on exertion, No orthopnea, No parox noct dyspnea, No palpitations GI: No abdominal pain, No anorexia, No nausea, No vomiting : No dysuria, No frequency Hematologic: No bleeding, No bruising Endocrine: No cold intolerance, No heat intolerance, No weight gain, No weight loss Allergy / Immune: No allergy Psychiatric: Normal thought content Physical Exam Initial Vital Signs Vital Signs (First) Date Time Temp Pulse Resp B/P Pulse Ox O2 Delivery O2 Flow Rate FiO2 12/06/16 10:23 36.6 95 17 130/71 98 Room Air Initial VS: Reviewed, Vital signs normal General/Constitutional: Well-developed, Well-nourished Head / Eyes: Atraumatic, Normocephalic, PERRL ENT: Mucous membranes moist, Conjunctiva normal, No scleral icterus Neck: Supple, Non-tender, Full range of motion Respiratory: Breath sounds normal, Clear to auscultation, No respiratory distress Cardiovascular: Regular rate & rhythm, Heart sounds normal, Intact distal pulses Abdomen / GI: Soft, Non-tender, No guarding, No rebound, No distention Back: No CVA tenderness Lymphatic: No lymphadenopathy Upper Extremities: Vascular intact, Neuro intact, No swelling, No tenderness Skin: Warm, Dry, No cyanosis Neurologic: Alert, Oriented, Nonfocal Psychiatric: Mood/affect normal, Behavior normal, Normal thought content right leg is wraped with cobain, no bleeding through, toes are swollen and bluish. left leg has boot on with toes same coloring and swollen. In a wheel chair General/Constitutional: Awake, Alert, No acute distress Respiratory / Chest: Atraumatic, Breath sounds NL, Breath sounds = bilat Cardiovascular: Heart rate NL, Regular rhythm, Heart sounds NL Interpretation & Diagnostics Lab Results Interpretation Result Diagram: 12/06/16 1035 12/06/16 1035 Test 12/06/16 10:35 White Blood Count 5.9th/mm3 (3.8-10.1) Red Blood Count 3.93mil/mm3 (4.40-5.80) Hemoglobin 10.3g/dL (13.8-17.2) Hematocrit 33.6% (41.0-50.0) Mean Corpuscular Volume 85.5fL (81-100) Mean Corpuscular Hemoglobin 26.2pg (27.0-35.0) Mean Corpuscular Hemoglobin Concent 30.7% (32.0-37.0) Red Cell Distribution Width 16.2% (12.3-15.4) Platelet Count 205bil/L (150-400) Neutrophils (%) (Auto) 77.9% (40-74) Lymphocytes (%) (Auto) 9.7% (14-46) Monocytes (%) (Auto) 11.2% (4-12) Eosinophils (%) (Auto) 0.9% (0-5) Basophils (%) (Auto) 0.3% (0-3) Prothrombin Time 28.1sec (8.1-12.5) Prothromb Time International Ratio 2.58ratio Sodium Level 137mEq/L (134-144) Potassium Level 4.3mEq/L (3.5-5.2) Chloride Level 97mEq/L (97-108) Carbon Dioxide Level 27mmol/L (18-29) Blood Urea Nitrogen 32mg/dL (8-27) Creatinine 1.67mg/dL (0.76-1.27) Estimat Glomerular Filtration Rate 45mL/min (>59) Glucose Level 164mg/dL (60-99) Calcium Level 8.8mg/dL (8.5-10.1) Total Bilirubin 0.6mg/dL (0.0-1.2) Aspartate Amino Transf (AST/SGOT) 25U/L (0-50) Alanine Aminotransferase (ALT/SGPT) 10U/L (0-44) Alkaline Phosphatase 70U/L (25-160) Total Protein 8.1g/dL (6.4-8.4) Albumin 3.1g/dL (3.4-5.0) Hold Magallanes Top Tube Received (Received) Lab Results Interpretation: CBC normal CMP moderate renal insufficiency (unchanged) INR down to the therapeutic range (patient recently supratherapeutic and warfarin being held given bleeding) Re-Eval/Medical Decision Med Decision/Clinical Course Discussed with Dr. Sr, assumed care of patient Differential Diagnosis: Negative: Achilles tendon rupture, Ankle dislocation, Arterial occlus/ischemia, Compartment syndrome, Knee ligament injury Discharge & Departure Impression: Primary Impression: Leg wound, right Encounter type: subsequent encounter Qualified Code: S81.801D - Unspecified open wound, right lower leg, subsequent encounter Disposition: Home Referrals: Odilon Moore DO (PCP) EDSupervising Provider for APC: Milan Sr MD Attending Statement This is a patient who was initially seen by the mid-level provider. However I personally interviewed and examined this patient. This patient was sent in by the surgeon, a chronically anticoagulated-the chart from her recent admission claims it for chronic DVT, the patient states that it is for chronic A. fib which is also documented separately, who has a wound in the right leg that has been using an bleeding repeatedly. He had a recent hematoma drained. He was supratherapeutic and reaches an days, so his warfarin has been held for the past 2-3 days-but is still supratherapeutic yesterday, and he is intermittently having to undo the bandage because it has been soaking through them filled with what he describes as a large quantity of blood. He went over to the wound care clinic, had his wound redressed and was then sent to the ED to evaluate the potential need for transfusion, and/or further reversal. Patient has is a chronically ill, morbidly obese, complex patient. Again is indication for warfarin therapy is a chronic DVT from years ago, and/ or atrial fibrillation (indications are listed in the chart, patient claims for A. fib) and I do think it is entirely reasonable for valve repair. If anticoagulation given his current problems with ongoing bleeding. Legs just been wrapped and the bandage is doing well. An INR was obtained and is down to Agata therapeutic rather than supratherapeutic level, the patient's hematocrit is unchanged from recent with no markers to indicate the patient are as transfusion. His vital signs are normal. The patient is transfused with several units of FFP. Continued to do well without active other active signs of bleeding. I am not finding indication the patient requires hospitalization. The plan is to drink for the patient to continue to hold the warfarin for the time being, once the bleeding stabilizes physicians can review them decide when to reinitiate. He is to continue current care. He is comfortable with this plan and is discharged in improved condition. copies to: Anai Cuellar MD, Sue ARNP Dec 06, 2016 10:45 Milan Sr MD Dec 06, 2016 12:08
[2016-12-06 10:55] LABS: BASOPHILS % (AUTO) 0.3 % (0-3); EOSINOPHILS % (AUTO) 0.9 % (0-5); MONOCYTES % (AUTO) 11.2 % (4-12); Mean Corpuscular Hemoglobin 26.2 pg (27.0-35.0); Mean Corpuscular Volume 85.5 fL (81-100); NEUTROPHILS % (AUTO) 77.9 % (40-74); Platelet Count 205 bil/L (150-400)
[2016-12-06 11:08] LABS: INR 2.58 ratio
[2016-12-06 13:08] VITALS: BP 112/54; PULSE 84; RESP 15
== END 2016-12-06 14:40 | disposition home or self-care (01) ==
LOC: SED 10:09
DX: S81.801D Unspecified open wound, right lower leg, subsequent encounter (principal); Y83.8 Other surgical procedures as the cause of abnormal reaction of the patient, or of later complication, without mention of misadventure at the time of the procedure; Y92.9 Unspecified place or not applicable; Y93.9 Activity, unspecified; Y99.8 Other external cause status; E11.22 Type 2 diabetes mellitus with diabetic chronic kidney disease; N18.3 Chronic kidney disease, stage 3 (moderate); I50.9 Heart failure, unspecified; Z98.890 Other specified postprocedural states; Z86.79 Personal history of other diseases of the circulatory system; Z86.718 Personal history of other venous thrombosis and embolism; Z99.3 Dependence on wheelchair; Z79.82 Long term (current) use of aspirin; Z79.01 Long term (current) use of anticoagulants; Z88.0 Allergy status to penicillin

== ENCOUNTER 2017-02-24 12:10 | Emergency (ER) | payer MEDICAID ==
[~2017-02-24] VITALS: Ht 210.8 cm; Wt 200.0 kg
[2017-02-24 12:24] VITALS: BP 120/76; PULSE 53; RESP 10; O2SAT 97
--- NOTE | 2017-02-24 12:33 | ED.REPORT ---
HPI-General Illness Date of Service Feb 24, 2017 ED Provider: Amado Romero MD Pt is a 61 y/o male anticoagulated on Warfarin w/ a hx of CKD III, NIDDM, CHF, presenting to the ED by request of his PCP due to abnormal kidney function labs. He is asymptomatic at time of interview other than mild nausea. He denies fever, increased peripheral edema, vomiting, abdominal pain, CP, SOB. The patient had a lab draw yesterday which showed elevated kidney function labs. The patient was diagnosed with cellulitis of the legs 3 weeks ago and finished his course of antibiotics. 1.5 weeks ago, he was switched to Torsemide from Furosemide. He stopped his Torsemide last week on his own volition because of decreased urination and hypotension with systolic pressure in the 70s recorded at home. He took his old dose of Furosemide yesterday. He has no history of significant kidney failure or dialysis treatment. Nursing Notes Stated Complaint: KIDNEYS Chief Complaint: General Complaint Nursing Notes Reviewed: Yes Allergies: Coded Allergies: Penicillins (Verified Allergy, Unknown, Unknown, 12/06/16) Scheduled Aspirin Chew (Aspirin Chew) 81 Mg Chew 81 MG PO DAILY Cholecalciferol (Vitamin D3) (Vitamin D3) 2,000 Unit Capsule 2,000 UNIT PO DAILY Ferrous Sulfate (Ferrous Sulfate) 325 Mg Tablet.dr 325 MG PO BID Magnesium (Magnesium) 30 Mg Tablet 30 MG PO DAILY Multivits-Min/FA/Lycopene/Lut (Centrum Silver Tablet) 1 Each Tablet 1 EACH PO DAILY Oxymorphone (Oxymorphone) 10 Mg Tablet 10 MG PO BID Potassium Chloride (Potassium Chloride) 20 Meq Tab.er.prt 20 MEQ PO TID TAKE WITH FOOD Warfarin Sodium (Warfarin Sodium) 10 Mg Tablet 7.5 MG PO DAILY Scheduled PRN Nitroglycerin SL (Nitroglycerin SL) 0.4 Mg Tab.subl 0.4 MG SL Q5MIN PRN PRN For Chest Pain Ondansetron ODT (Zofran ODT) 4 Mg Tablet 4 MG PO Q4H PRN PRN For Nausea Prednisone (PredniSONE) 5 Mg Tab 5-10 MG PO DAILY PRN PRN RA flare up oxyCODONE-Acetaminophen 10-325 mg (oxyCODONE-Acetaminophen 10-325 mg) 1 Each Tablet 2 TABLET PO Q6H PRN PRN For Pain General Time Seen by MD: 12:29 Chief Complaint Other (abnormal kidney function labs) Hx Obtained From: Patient Arrived By: Wheelchair Sudden in Onset?: No Onset Occurred: Onset unknown Symptom Duration: Since onset Severity: Current: No pain currently Severity: Maximum: No pain Recent Healthcare: Recent doctor visit Similar Sx Previous: No Past Medical History Past Medical History Past Medical History 1. Morbid obesity (BMI 45) -Largely immobile and in wheelchair 2. History of chronic right lower extremity DVT in July 2013. -Currently on Coumadin (also for Afib per other records) -Associated with chronic venous insufficiency 3. Stage III chronic kidney disease with baseline creatinine of around 1.5 4. Rheumatoid arthritis -Previously on prednisone 5. Type II diabetes mellitus -Diet managed 6. Atrial tachycardia with variable rate 7. Cardiomyopathy (LVEF 30-35%) -Unclear if ischemic or tachycardia induced. 8. Peripheral neuropathy 9. Charcot joint of left leg 10. History of BPH 11. History of atrial flutter ablation status post cardioversion in 2006 Reports: Congestive heart failure Past Surgical History hiatal hernia repair left arm fracture repair carpal tunnel kidney stone removal Cardiac ablation Family History noncontributory Smoking History Never Smoker Social History Drug Use: Denies drug use Other Social History: Local resident Ambulatory Status Wheelchair Review of Systems Full Review of Systems Constitutional: Denies: Fever Respiratory: Denies: Dyspnea on exertion, Shortness of breath Cardiovascular: Denies: Chest pain GI: Reports: Nausea, Denies: Abdominal pain, Vomiting Complete sys rev & neg: except as marked. Physical Exam Vital Signs Vital Signs Date Time Temp Pulse Resp B/P Pulse Ox O2 Delivery O2 Flow Rate FiO2 02/24/17 16:08 37.2 94 18 113/73 98 Room Air 02/24/17 15:30 94 18 113/73 98 Room Air 02/24/17 12:24 37.2 53 10 120/76 97 Room Air Initial VS: Reviewed, Vital signs normal Head / Eyes: Atraumatic, Normocephalic, PERRL ENT: Mucous membranes moist, Conjunctiva normal, No scleral icterus Neck: Supple, Full range of motion Respiratory: Breath sounds normal, Clear to auscultation, No respiratory distress Cardiovascular: Regular rate & rhythm, Heart sounds normal, Intact distal pulses Abdomen / GI: Soft, Non-tender, No guarding, No rebound Skin: Warm, Dry Neurologic: Alert, Oriented, Nonfocal Psychiatric: Mood/affect normal, Behavior normal, Normal thought content General/Constitutional: Awake, Alert, No acute distress, Cooperative, Not toxic appearing Appearance / Presentation: Positive: Obese, morbidly Lower Extremity / Pelvis / MS: Atraumatic, Neurologic intact Compression stockings bilaterally Brace on left leg Interpretation & Diagnostics Lab Results Interpretation Result Diagram: 02/24/17 1320 02/24/17 1320 Test 02/24/17 13:20 White Blood Count 5.0th/mm3 (3.8-10.1) Red Blood Count 4.72mil/mm3 (4.40-5.80) Hemoglobin 11.6g/dL (13.8-17.2) Hematocrit 37.2% (41.0-50.0) Mean Corpuscular Volume 78.8fL (81-100) Mean Corpuscular Hemoglobin 24.6pg (27.0-35.0) Mean Corpuscular Hemoglobin Concent 31.2% (32.0-37.0) Red Cell Distribution Width 17.6% (12.3-15.4) Platelet Count 193bil/L (150-400) Neutrophils (%) (Auto) 67.5% (40-74) Lymphocytes (%) (Auto) 16.4% (14-46) Monocytes (%) (Auto) 11.9% (4-12) Eosinophils (%) (Auto) 3.2% (0-5) Basophils (%) (Auto) 0.8% (0-3) Prothrombin Time 16.1sec (8.1-12.5) Prothromb Time International Ratio 1.49ratio Sodium Level 135mEq/L (134-144) Potassium Level 3.0mEq/L (3.5-5.2) Chloride Level 90mEq/L (97-108) Carbon Dioxide Level 25mmol/L (18-29) Blood Urea Nitrogen 23mg/dL (8-27) Creatinine 1.72mg/dL (0.76-1.27) Estimat Glomerular Filtration Rate 43mL/min (>59) Glucose Level 189mg/dL (60-99) Lactic Acid Level 1.6mmol/L (0.4-2.0) Calcium Level 9.2mg/dL (8.5-10.1) Magnesium Level 1.5mg/dL (1.6-2.6) Total Bilirubin 0.8mg/dL (0.0-1.2) Aspartate Amino Transf (AST/SGOT) 32U/L (0-50) Alanine Aminotransferase (ALT/SGPT) 13U/L (0-44) Alkaline Phosphatase 84U/L (25-160) Pro-B-Type Natriuretic Peptide 693.6pg/mL (0-210) Total Protein 8.5g/dL (6.4-8.4) Albumin 3.4g/dL (3.4-5.0) Lipase 37U/L (13-60) ECG Interpretation ECG Interpretation: Atrial Fibrillation. Rate 113 ST depression V1-V5 (Unchanged from prior) Time: 13:04 Interpreted by: ED physician Re-Eval/Medical Decision Med Decision/Clinical Course 61-year-old male history of CKD, CHF, DM reportedly sent in by primary doctor for worsening kidney function. His kidney function is stable in comparison to previous labs here. He has a mildly low potassium for which we repleted orally. I do not see any acute indication for hospitalization. Patient had been unreliable and adjusting his diuretics at home himself. Given a prescription for oral potassium for the next several days. Advised him to follow up with primary doctor on Monday. Return precautions given. Source of Hx: Old records Time of Eval: 15:23 Re-Evaluation/Progress Note: Pt rechecked. Informed the pt of the plan for discharge. Pt understands and agrees with the plan. F/U instructions and RTER warning given. All questions addressed. Counseled Regarding: Diagnosis, Lab results, Need for follow-up, When/why to return to ED Discharge & Departure Primary Impression: Chronic kidney disease (CKD) Chronic kidney disease stage: unspecified stage Qualified Code: N18.9 - Chronic kidney disease, unspecified Additional Impression: Hypokalemia Disposition: Home Discharge Condition All VS Reviewed: Yes Condition: Stable Patient Instructions: Chronic Kidney Failure (ED), Hypokalemia (ED) Additional Instructions: Your lab results show BUN = 23 and Creatinine = 1.72, which is not significantly different from previous results. Discharge is appropriate at this time. Your Potassium was also low but not critically. Follow up with your Primary Care Provider to discuss today's findings. Return to the ED in case of flank pain, high fever, vomiting or other concerning symptoms. Referrals: Odilon Moore DO (PCP) [place] Attestation Portions of this note were transcribed by Omer Grover. I, Dr. Romero personally performed the history, physical exam and medical decision-making; I reviewed and confirmed the accuracy of the information in the transcribed note. Signed by Omer Grover and Luis Miguel Velazquez, 02/24/17. 1509. copies to: Odilon Moore Ben M MD Feb 24, 2017 12:32 Tasneem Abdalla Feb 24, 2017 12:41 OMER GROVER Feb 24, 2017 13:00
[2017-02-24] MEDS ORDERED: Ondansetron 2 mg/mL 2 mL Inj IVPUSH PRN (12:45)
[2017-02-24 13:34] LABS: BASOPHILS % (AUTO) 0.8 % (0-3); EOSINOPHILS % (AUTO) 3.2 % (0-5); MONOCYTES % (AUTO) 11.9 % (4-12); Mean Corpuscular Hemoglobin 24.6 pg (27.0-35.0); Mean Corpuscular Volume 78.8 fL (81-100); NEUTROPHILS % (AUTO) 67.5 % (40-74); Platelet Count 193 bil/L (150-400)
[2017-02-24 13:48] LABS: INR 1.49 ratio
[2017-02-24 14:12] LABS: Magnesium 1.5 mg/dL (1.6-2.6)
[2017-02-24] MEDS ORDERED: Potassium Chloride 20 mEq SR Tablet PO ONE (15:05)
[2017-02-24] MEDS ORDERED: POTA20TA16 PO (15:20)
[2017-02-24 15:30] VITALS: BP 113/73; PULSE 94; RESP 18; O2SAT 98
[2017-02-24] MEDS ORDERED: ONDA4TAB9 PO (15:58)
[2017-02-24 16:08] VITALS: BP 113/73; PULSE 94; RESP 18; O2SAT 98
== END 2017-02-24 16:08 | disposition home or self-care (01) ==
LOC: SED 12:10
DX: N18.3 Chronic kidney disease, stage 3 (moderate) (principal); E87.6 Hypokalemia; E11.9 Type 2 diabetes mellitus without complications; I50.9 Heart failure, unspecified; E66.01 Morbid (severe) obesity due to excess calories; M06.9 Rheumatoid arthritis, unspecified; Z86.718 Personal history of other venous thrombosis and embolism; Z68.42 Body mass index [BMI] 45.0-49.9, adult; Z79.82 Long term (current) use of aspirin; Z79.01 Long term (current) use of anticoagulants; Z79.52 Long term (current) use of systemic steroids; Z88.0 Allergy status to penicillin
CPT/HCPCS: 36415; 80053; 83605; 83690; 83735; 83880; 85025; 85610; 93005; 96374; 99284; J2405

== ENCOUNTER 2017-04-20 08:43 | Inpatient (IN) | payer MEDICAID ==
[2017-04-20] VITALS (10 sets, daily range): BP systolic 106–153; BP diastolic 56–86; PULSE 75–101; RESP 16–20; O2SAT 93–100
[~2017-04-20] VITALS: Ht 210.8 cm; Wt 208.8 kg
[~2017-04-20 08:43] MED LIST changes: +ONDA4TAB9 PO; +POTA20TA16 PO
--- NOTE | 2017-04-20 09:07 | ED.REPORT ---
HPI-Chest Pain 40 and Over Date of Service Apr 20, 2017 ED Provider: Mehran Grubbs DO Patient is a 61 year old male with a history of CHF, hypertension, diabetes and chronic kidney disease who presents to the ED via EMS due to chest pain onset yesterday. Associated symptoms include shortness of breath, pain with deep inhalation and dysuria. He denies cough, fever, abdominal pain or vomiting. The patient reports that he has had similar chest pain a few months ago. He is on diuretics but doesn't think they are helping. Patient is currently taking Coumadin. Nursing Notes Stated Complaint: SOB/CHEST PAIN Chief Complaint: Chest Pain Nursing Notes Reviewed: Yes Allergies: Coded Allergies: Penicillins (Verified Allergy, Unknown, Unknown, 04/20/17) Scheduled Aspirin Chew (Aspirin Chew) 81 Mg Chew 81 MG PO DAILY Cholecalciferol (Vitamin D3) (Vitamin D3) 2,000 Unit Capsule 2,000 UNIT PO DAILY Ferrous Sulfate (Ferrous Sulfate) 325 Mg Tablet.dr 325 MG PO BID Magnesium (Magnesium) 30 Mg Tablet 30 MG PO DAILY Multivits-Min/FA/Lycopene/Lut (Centrum Silver Tablet) 1 Each Tablet 1 EACH PO DAILY Oxymorphone (Oxymorphone) 10 Mg Tablet 10 MG PO BID Warfarin Sodium (Warfarin Sodium) 10 Mg Tablet 7.5 MG PO DAILY Scheduled PRN Nitroglycerin SL (Nitroglycerin SL) 0.4 Mg Tab.subl 0.4 MG SL Q5MIN PRN PRN For Chest Pain Ondansetron ODT (Zofran ODT) 4 Mg Tablet 4 MG PO Q4H PRN PRN For Nausea Prednisone (PredniSONE) 5 Mg Tab 5-10 MG PO DAILY PRN PRN RA flare up oxyCODONE-Acetaminophen 10-325 mg (oxyCODONE-Acetaminophen 10-325 mg) 1 Each Tablet 2 TABLET PO Q6H PRN PRN For Pain General Time Seen by MD: 09:04 Chief Complaint Chest pain Hx Obtained From: Patient Arrived By: Ambulance Sudden in Onset?: Yes Onset Occurred: Yesterday Symptom Duration: Since onset Severity: Current: Moderate Associated with: Denies: Fever, Vomiting Recent Healthcare: No recent hospitalization, Recent doctor visit Similar Sx Previous: Yes Past Medical History Past Medical History Past Medical History 1. Morbid obesity (BMI 45) -Largely immobile and in wheelchair 2. History of chronic right lower extremity DVT in July 2013. -Currently on Coumadin (also for Afib per other records) -Associated with chronic venous insufficiency 3. Stage III chronic kidney disease with baseline creatinine of around 1.5 4. Rheumatoid arthritis -Previously on prednisone 5. Type II diabetes mellitus -Diet managed 6. Atrial tachycardia with variable rate 7. Cardiomyopathy (LVEF 30-35%) -Unclear if ischemic or tachycardia induced. 8. Peripheral neuropathy 9. Charcot joint of left leg 10. History of BPH 11. History of atrial flutter ablation status post cardioversion in 2006 Reports: Congestive heart failure Past Surgical History hiatal hernia repair left arm fracture repair carpal tunnel kidney stone removal Cardiac ablation Family History noncontributory Smoking History Never Smoker Social History Drug Use: Denies drug use Other Social History: Local resident Ambulatory Status Wheelchair Review of Systems Constitutional: Denies: Fever Respiratory: Reports: Shortness of breath, Denies: Non-productive cough Cardiovascular: Reports: Chest pain GI: Denies: Abdominal pain, Vomiting Complete sys rev & neg: except as marked. Male: Reports Dysuria Physical Exam Initial Vital Signs Vital Signs (First) Date Time Temp Pulse Resp B/P Pulse Ox O2 Delivery O2 Flow Rate FiO2 04/20/17 08:50 37.5 101 18 121/86 93 Room Air Initial VS: Reviewed General/Constitutional: Awake, Alert Distress / Hydration: Positive: Distress moderate Appearance / Presentation: Positive: Obese, morbidly Respiratory / Chest: Atraumatic, Breath sounds NL, Breath sounds = bilat, No respiratory distress Heart Rate / Rhythm: Positive: Irregular rhythm Abdomen: Atraumatic, Soft, Non-tender LOWER EXTREMITIES: symmetric lower extremity edema Skin: Atraumatic, Color NL, No rash, Warm, Dry Neurologic: Oriented X3, Speech NL, No motor deficits, No sensory deficits Psychiatric: Affect NL, Mood NL Head / Eyes: Atraumatic, Normocephalic, PERRL, EOMI Interpretation & Diagnostics Lab Results Interpretation Result Diagram: 04/20/1725 04/20/17 0925 Test 04/20/17 09:25 04/20/17 11:04 White Blood Count 6.1th/mm3 (3.8-10.1) Red Blood Count 4.31mil/mm3 (4.40-5.80) Hemoglobin 10.9g/dL (13.8-17.2) Hematocrit 35.7% (41.0-50.0) Mean Corpuscular Volume 82.8fL (81-100) Mean Corpuscular Hemoglobin 25.3pg (27.0-35.0) Mean Corpuscular Hemoglobin Concent 30.5% (32.0-37.0) Red Cell Distribution Width 18.2% (12.3-15.4) Platelet Count 200bil/L (150-400) Neutrophils (%) (Auto) 73.7% (40-74) Lymphocytes (%) (Auto) 11.6% (14-46) Monocytes (%) (Auto) 11.6% (4-12) Eosinophils (%) (Auto) 2.1% (0-5) Basophils (%) (Auto) 0.3% (0-3) Prothrombin Time 16.6sec (8.1-12.5) Prothromb Time International Ratio 1.54ratio Sodium Level 139mEq/L (134-144) Potassium Level 3.7mEq/L (3.5-5.2) Chloride Level 93mEq/L (97-108) Carbon Dioxide Level 28mmol/L (18-29) Blood Urea Nitrogen 18mg/dL (8-27) Creatinine 1.37mg/dL (0.76-1.27) Estimat Glomerular Filtration Rate 56mL/min (>59) Glucose Level 189mg/dL (60-99) Calcium Level 9.0mg/dL (8.5-10.1) Magnesium Level 1.9mg/dL (1.6-2.6) Total Bilirubin 0.7mg/dL (0.0-1.2) Aspartate Amino Transf (AST/SGOT) 29U/L (0-50) Alanine Aminotransferase (ALT/SGPT) 16U/L (0-44) Alkaline Phosphatase 83U/L (25-160) Total Creatine Kinase 42U/L (21-232) Creatine Kinase MB < 1.0ng/mL (0.0-10.4) Creatine Kinase MB % % (0.0-5.0) Pro-B-Type Natriuretic Peptide 469.1pg/mL (0-210) Total Protein 7.5g/dL (6.4-8.4) Albumin 3.3g/dL (3.4-5.0) Thyroid Stimulating Hormone (TSH) 0.634uIU/mL (0.450-4.500) Hold Magallanes Top Tube Received (Received) D-Dimer 0.71mg/L FEU (<0.50) ECG Interpretation ECG Interpretation: atrial fibrillation wihtout RVR multiple focal PVCs rate 82 Time: 09:08 Interpreted by: ED physician Normal ECG Interpretation: Normal rate ECG Interpretation: atrial fibrillation with PVCs no acute ST changes Time: 10:43 Interpreted by: ED physician Normal ECG Interpretation: Normal rate (74) X-Ray Chest Interpretation Chest Xray Interpretation: IMPRESSION: Mild increased pulmonary vascularity. Slight increased right upper lobe opacity, which could represent edema or developing air space disease. Dictated by: Kiana Marroquin M.D. on 04/20/2017 at 10:50 Approved by: Kiana Marroquin M.D. on 04/20/2017 at 10:52 View: Portable, 1 view Interpretation / Wet Read by: Interpret - Radiologist Re-Eval/Medical Decision Med Decision/Clinical Course Patient presents with chest pain. KG shows atrial fibrillation. There is no evidence of recent provocative cardiac testing. His symptoms have improved after nitroglycerin and morphine. We will plan to admit him for further evaluation. Currently a CT to exclude pulmonary embolism is pending. Time of Eval: 10:34 Patient Status: Condition improved Re-Evaluation/Progress Note: Patient rates his pain as a 1/10. Time of Eval: 11:05 Re-Evaluation/Progress Note: Discussed results and plan for admit. THe patient understands and agrees to the plan for admit. All questions were addressed. Consultation : Referral / Consult Name: Kirk Reynoso MD Consulted With: Hospitalist Call Returned at: 11:48 Web Press Roll Tender: Agrees with eval, Agrees with plan, Accepts admit Counseled Regarding: Diagnosis, Lab results, Need for admission Discharge & Departure Primary Impression: Chest pain Chest pain type: chest pain on breathing Qualified Code: R07.1 - Chest pain on breathing Additional Impression: Shortness of breath Disposition: ADMITTED TO HOSPITAL Discharge Condition All VS Reviewed: Yes Condition: Stable Referrals: Odilon Moore DO (PCP) Scribe Attestation Portions of this note were transcribed by Jessica Ontiveros. IDr. Cristy personally performed the history, physical exam and medical decision-making; I reviewed and confirmed the accuracy of the information in the transcribed note. Signed by: Luis Miguel Antonio, 04/20/17 and 1200 copies to: Odilon Moroe Timothy S DO Apr 20, 2017 09:07 Stefany Ontiveros Apr 20, 2017 09:26
[2017-04-20 09:35] LABS: BASOPHILS % (AUTO) 0.3 % (0-3); EOSINOPHILS % (AUTO) 2.1 % (0-5); MONOCYTES % (AUTO) 11.6 % (4-12); Mean Corpuscular Hemoglobin 25.3 pg (27.0-35.0); Mean Corpuscular Volume 82.8 fL (81-100); NEUTROPHILS % (AUTO) 73.7 % (40-74); Platelet Count 200 bil/L (150-400)
[2017-04-20 09:54] LABS: INR 1.54 ratio
[2017-04-20 10:36] LABS: Magnesium 1.8 mg/dL (1.6-2.6)
[2017-04-20 10:51] LABS: TROPONIN T < 0.010 ug/L (0.0-0.011)
[2017-04-20] MEDS ORDERED: 0.9% Sodium Chloride 1,000 ML IV SCH (11:47)
[2017-04-20] MEDS ORDERED: Polyethylene Glycol (PEG) 17 Gm Powder PO PRN (11:50)
[2017-04-20] MEDS ORDERED: Atropine 1 mg/10 mL (Code) Syringe IVPUSH PRN (11:50)
[2017-04-20] MEDS ORDERED: Alum-Mag Hydrox-Simeth 30 mL Suspension PO PRN (11:50)
[2017-04-20] MEDS ORDERED: Senna-Docusate 8.6-50 mg Tablet PO PRN (11:50)
[2017-04-20] MEDS ORDERED: Ondansetron 2 mg/mL 2 mL Inj IVPUSH PRN (11:50)
--- NOTE | 2017-04-20 11:53 | DRSVH ---
PROCEDURE: X-RAY CHEST ONE VIEW, PORTABLE ([id number]) INDICATIONS: dyspnea TECHNIQUE: One view of the chest was acquired. COMPARISON: [facility], CR, XR CHEST 1VW (PORTABLE), 11/27/2016, 14:59. FINDINGS: Surgical changes and devices: None. Lungs and pleura: No pleural effusions or pneumothorax. Mild increased pulmonary vascularity. Slig ht increased right upper lobe opacity. Mediastinum: Mediastinal contours appear normal. Heart size is normal. Bones and chest wall: No suspicious bony lesions. Overlying soft tissues appear unremarkable. IMPRESSION: Mild increased pulmonary vascularity. Slight increased right upper lobe opacity, which could represent edema or developing air space disease. Dictated by: Kiana Marroquin M.D. on 04/20/2017 at 10:50 Approved by: Kiana Marroquin M.D. on 04/20/2017 at 10:52
--- NOTE | 2017-04-20 11:58 | PCM.HPMED ---
Subjective Date of Service Apr 20, 2017 Primary Provider: Admitting Physician: Primary Care Physician: Odilon Moore DO Attending Physician: Chief Complaint: Chest pain History of Present Illness: 61-year-old male with history of systolic CHF presents with chest pains for the last 24+ hours. His EF was 30-40% January 2016, reports that he has been taking furosemide 80 mg twice a day and has not been P in her losing weight. He cannot tell if his legs are swollen because they are wrapped for wound care in [employer] boots. Given his general girth he cannot tell whether he is more swollen than not he always wears sweat pants but he has noted that his weight is gone up. He is able to recount to me that last time she had chest pain he had " fluid around his heart "got a lot of diuretics and he got better. He also recounts that he was started on some other medications and his blood pressure dropped. He also had some issues with his kidneys. He denies fevers, chills, cough. Review of Systems: Gen.: No fevers chills weight loss ++weight gain Eyes: no visual disturbances or blurring vision HEENT: No nose/throat drainage, no pain in ears or throat, no hearing loss Lymph: No lymph nodes noted Cardiac: No orthopnea, PND, palpitations , pedal edema or dyspnea on exertion + chest pain Pulmonary: no cough, wheezing or bringing up of sputum GI: No anorexia nausea vomiting blood or black in the stool : no dysuria hematuria urinary frequency ++decrease in urine output Musculoskeletal: Joint swelling no joint pain no new muscle aches or back pain ++ Feels like his rheumatoid arthritis is flaring and has been taking causes shoulders up and bothering him. Neuro: No syncope, seizures no loss of consciousness no new focal weakness, numbness or tingling Psychiatric: New new anxiety insomnia or depression Endocrine: No new heat or cold intolerances polyuria or polydipsia Hematology: No lymphadenopathy or easy bleeding or bruising noted skin: No new rashes, stasis dermatitis Allergies Coded Allergies: Penicillins (Verified Allergy, Unknown, Unknown, 04/20/17) Home Medications Aspirin Chew (Aspirin Chew) 81 Mg Chew 81 MG PO DAILY Cholecalciferol (Vitamin D3) (Vitamin D3) 2,000 Unit Capsule 2,000 UNIT PO DAILY Ferrous Sulfate (Ferrous Sulfate) 325 Mg Tablet.dr 325 MG PO BID Magnesium (Magnesium) 30 Mg Tablet 30 MG PO DAILY Multivits-Min/FA/Lycopene/Lut (Centrum Silver Tablet) 1 Each Tablet 1 EACH PO DAILY Oxymorphone (Oxymorphone) 10 Mg Tablet 10 MG PO BID Potassium Chloride (Potassium Chloride) 20 Meq Tab.er.prt 20 MEQ PO TID TAKE WITH FOOD Warfarin Sodium (Warfarin Sodium) 10 Mg Tablet 7.5 MG PO DAILY Scheduled PRN Nitroglycerin SL (Nitroglycerin SL) 0.4 Mg Tab.subl 0.4 MG SL Q5MIN PRN PRN For Chest Pain Ondansetron ODT (Zofran ODT) 4 Mg Tablet 4 MG PO Q4H PRN PRN For Nausea Prednisone (PredniSONE) 5 Mg Tab 5-10 MG PO DAILY PRN PRN RA flare up oxyCODONE-Acetaminophen 10-325 mg (oxyCODONE-Acetaminophen 10-325 mg) 1 Each Tablet 2 TABLET PO Q6H PRN PRN For Pain PMH 1. Morbid obesity (BMI 45)--Largely immobile and in wheelchair 2. History of chronic right lower extremity DVT in July 2013. - on Coumadin, chronic venous insufficiency 3. Stage III chronic kidney disease with baseline creatinine of around 1.5 4. Rheumatoid arthritis-intermittently on prednisone 5. Type II diabetes mellitus- -Diet managed 6. A. fib , Atrial tachycardia with variable rate 7. Cardiomyopathy (LVEF 30-35%) -Unclear if ischemic or tachycardia induced. 8. Peripheral neuropathy 9. Charcot joint of left leg 10. History of BPH 11. History of atrial flutter ablation status post cardioversion in 2006 Past Surgical History hiatal hernia repair left arm fracture repair carpal tunnel kidney stone removal Cardiac ablation Family History-no known history of early heart disease cancer or diabetes Smoking History Never Smoker Social History Drug Use: Denies drug use Other Social History: Local resident Ambulatory Status Wheelchair Social History Hx Alcohol Use: No Hx Substance Use: No Hx Tobacco Use: No Smoking Status: Never Smoker Exam Vital Signs Vital Sign - Last Date Time Temp Pulse Resp B/P Pulse Ox O2 Delivery O2 Flow Rate FiO2 04/20/17 10:13 79 16 119/58 94 Room Air 04/20/17 08:50 37.5 Exam Gen.- A+ O 3 no apparent distress. Morbidly obese male in bed Eyes- open conjunctiva clear, pupils equal nonicteric Mouth- oral mucosa moist, no exudate, edentulous ENT- ears normal, nose normal Neck- supple/trach midline CVS- RRR no murmur or gallop Lungs CTA GI- NABS/NT soft, mild stress pannus Musc- moving 4 no obvious deformity Unable to assess lower extremities because they are both wrapped left is in a brace/boot, right is just wrapped Neuro- cranial nerves II through XII intact to gross examination, nonfocal Skin- warm and dry, no rashes/lesions/wounds noted Psych- pleasant and appropriate, Lab and Diagnostics Result Diagram: 04/20/1792404/20/17924 X-Rays, CTs and MRIs CT ANGIO CHEST PULMONARY EMBOLISM : Jonatan Valdez M.D. on 04/20/2017 at 14:12 1. No evidence for central pulmonary embolism. Enlarged main pulmonary artery would be consistent with background pulmonary arterial hypertension. 2. Cardiomegaly as before, without acute pulmonary disease. 3. Solitary small right lower lobe nodule is unchanged since January 2016, reassuring for benign etiology. Dictated by: Jonatan Valdez M.D. on 04/20/2017 at 14:12 12-lead ECG Rate 74, QTC [address] segment depression, abnormal R-wave progression concurrently and personally reviewed by Angeles 04/20 . Atrial fibrillation . Ventricular premature complex . Nonspecific intraventricular conduction delay . Abnormal R-wave progression, early transition . Prolonged QT interval . When compared with ECG of 20-Apr-2017 9:08:57, . No significant change Cardiac Echo Impressions Echocardiogram Report: Néstor Gonsales on 01/30/2016 The left ventricle is mild-moderately dilated but measures somewhat smaller compared to the previous study. Left ventricular systolic function is moderately reduced with the ejection fraction estimated to be 35-40% with a significant dyssynchronous contraction pattern, consistent with a conduction abnormality but no focal wall motion abnormalities. Compared to the prior exam, left ventricular function is slightly improved. There is mild concentric left ventricular hypertrophy that is unchanged compared to the previous study. The right ventricle is moderately dilated and right ventricular systolic function is moderately reduced but grossly appears unchanged compared to the previous study. The right ventricular systolic pressure is estimated at 60 mmHg assuming a right atrial pressure of 15 mm Hg, and is likely moderately higher compared to the previous study. There is moderate biatrial enlargement. Both atria are unchanged in size since the prior echo exam. There is mild mitral regurgitation that is significantly improved compared to the previous study. There is no other significant valvular heart disease. The aortic arch is mildly enlarged but is unchanged compared to the previous study. The patient was in atrial fibrillation with heart rates between 62-88 bpm during the exam. Assessment & Plan 61-year-old male admitted 04/20 with chest pain ruling out for CO. I believe he is having acute CHF exacerbation, is never been risk stratified and recent memory once we managed to diurese him and rule out other etiologies this probably needs to be done. #Chest pain- EKG not showing any acute changes cardiac enzymes normal 3 -Nitroglycerin/morphine when necessary to treat probable symptomatic acute CHF #Acute/chronic systolic CHF -Daily I/os, weights -Trial Bumex 2 mg IV twice a day along with potassium/magnesium supplements -Patient will need risk stratification by [facility]ia when CHF is resolved he has not had this in over 10 years -Echocardiogram ordered EF was 30-40% January 2016 -We will add in Coreg/lisinopril in the next few days if blood pressure tolerating for now permissive hypertension perfusion purposes -Apparently the med rec was done but it is missing things like furosemide the patient tells us he is on. #Atrial fibrillation- subtherapeutic INR, warfarin per pharmacy, rate is already controlled keep him on telemetry #Rheumatoid arthritis- will continue the patient's prednisone #NIDDM-we will start low-dose sliding scale and put patient on a carb controlled diet -I will consider doing an A1c if blood sugars are persistently elevated. #BPH-trial Flomax, check post void residual #CKD3-monitor CR while diuresing #Morbid obesity-evaluate for sleep apnea RTI nocturnal oximetry and O2 as needed #Prophylaxis-DVT cannot do SCDs, heparin until warfarin therapeutic, GI not indicated #Disposition-full code confirmed with patient, from home independent living. Kirk Reynoso MD Apr 20, 2017 11:58
[2017-04-20 12:47] LABS: Creatine Kinase 42 U/L (21-232); Magnesium 1.9 mg/dL (1.6-2.6)
[2017-04-20] MEDS ORDERED: predniSONE 5 mg Tablet PO PRN (13:35)
--- NOTE | 2017-04-20 14:21 | DRSVH ---
PROCEDURE: CT ANGIO CHEST PULMONARY EMBOLISM ([id number]) INDICATIONS: 61 year-old male with chest pain and elevated d-dimer level. TECHNIQUE: After the administration of intravenous contrast, 2 mm thick sections acquired from the pulmonary api nilson to the posterior costophrenic angles. 3-dimensional maximum intensity projection (MIP) coronal a nd sagittal reformats were then acquired through the thorax. For radiation dose reduction, the follo wing was used: automated exposure control, adjustment of mA and/or kV according to patient size. COMPARISON: [facility], CT, CT ANGIO CHEST PE, 01/31/2016, 16:29. FINDINGS: Image quality: Excellent. Pulmonary arteries: Pulmonary arteries demonstrate no intraluminal filling defects to suggest centra l pulmonary embolism. Central pulmonary artery is enlarged at 4.1 cm diameter. Lungs and pleura: No acute airspace opacities. On axial image 28, a 3 mm right lower lobe nodule is u nchanged since January 2016, reassuring for benign etiology. There is minimal right lung base atelectas is. No pleural effusions or pneumothorax. Central and peripheral airways are patent. Mediastinum: Cardiomegaly is unchanged, without pericardial effusion. No mediastinal or hilar adenop athy. Thoracic aorta is normal in caliber and enhancement. Esophagus is normal in caliber, without hiatal hernia. Bones and chest wall: There is new mild bilateral gynecomastia. No suspicious bony lesions. Ribs an d thoracic spine appear intact throughout. No axillary or supraclavicular adenopathy. Abdomen: Visualized upper abdominal solid organs appear normal in the early arterial phase of enhanc ement. IMPRESSION: 1. No evidence for central pulmonary embolism. Enlarged main pulmonary artery would be consistent wit h background pulmonary arterial hypertension. 2. Cardiomegaly as before, without acute pulmonary disease. 3. Solitary small right lower lobe nodule is unchanged since January 2016, reassuring for benign etiolo gy. Dictated by: Jonatan Valdez M.D. on 04/20/2017 at 14:12 Approved by: Jonatan Valdez M.D. on 04/20/2017 at 14:20
[2017-04-20] MEDS: oxyCODONE-Acetamin 10-325 mg Tablet PO PRN ×2 (15:04→21:24)
--- NOTE | 2017-04-20 16:00 | NUR ---
ADMIT Admitted a 61/M into room 3002 following report from PLACEMENT INTERVIEWER, Emmie Cole. Pt A&Ox4, unable to transfer from [facility] to [facility] due to mobility issues. Pt req 3+ person to slide transfer to bed. Pt stated with any transfers, he experiences CP and immediately began c/o CP, rating 9/10. PRN Nitro given SL with relief. Vitals within normal limits, slightly hypertensive. Pt states he is seen in wound care for bilat LE which are wrapped, LLE in a boot. Pt refused to have this RN unwrap LE's, stating, "Wound care does that and my shauna't is tomorrow." Order placed for wound care eval. Pt req 2L via NC for comfort, sats 100% so dropped to 1L via NC. Tele placed, per clin tech afib in the 80-100's. Pt using urinal to void, states he will need BP for BM stating, "I can't move otherwise." Pt introduced to bed, controls, call light and staff. Bed in lowest, locked position and call light in reach.
[2017-04-20] MEDS ORDERED: Heparin 5,000 Unit/mL Inj SUBQ SCH (16:30)
[2017-04-20] MEDS ORDERED: Sodium Chloride LOK Flush 10 mL Syringe IVFLUSH SCH (16:30)
[2017-04-20] MEDS ORDERED: Glucose 40% Oral Gel 15 Gm Tube PO PRN (18:30)
[2017-04-20] MEDS ORDERED: Magnesium Hydroxide 355 mL Oral Suspension PO PRN (18:30)
[2017-04-20] MEDS ORDERED: Dextrose 10% 250 ML in IV Bag 1 EACH IV PRN (18:30)
[2017-04-20] MEDS: Bumetanide 0.25 mg/mL 4 mL Inj IV SCH (18:37)
[2017-04-20] MEDS: Nitroglycerin 2% 1 Gm Ointment TOPICAL SCH (19:04)
[2017-04-20] MEDS: Senna-Docusate 8.6-50 mg Tablet PO SCH (21:24)
[2017-04-20] MEDS: oxyCODONE ER 10 mg ER12 Tablet PO SCH (21:24)
[2017-04-20] MEDS: Insulin LISPRO 300 Unit/3 mL Inj SUBQ SCH (23:43)
[2017-04-21] VITALS (9 sets, daily range): BP systolic 117–143; BP diastolic 64–78; PULSE 71–93; RESP 19–20; O2SAT 93–97
[2017-04-21] MEDS: Nitroglycerin 2% 1 Gm Ointment TOPICAL SCH ×4 (02:51→21:24)
[2017-04-21] MEDS: oxyCODONE-Acetamin 10-325 mg Tablet PO PRN ×4 (03:13→21:25)
--- NOTE | 2017-04-21 04:42 | NUR ---
NOC shift note Patient reported chest pain through the night with assessments, between 3-8, medication effective. Patient reports that it is less than when admitted. Refused full skin assessment- unable to look at bilateral lower legs or complete backside. Patient denied having any skin issues on backside. Using urinal independently with 4+ voids and over 1L urine output this shift. Blood sugar 149 at HS. Nitropaste administered as scheduled, Q6 hours. Patient is using call light appropriately, intentional rounding in place.
[2017-04-21 08:27] LABS: INR 1.68 ratio
[2017-04-21] MEDS ORDERED: Magnesium Chloride SR 64 mg ER24 Tablet PO SCH (08:30)
[2017-04-21] MEDS: Insulin LISPRO 300 Unit/3 mL Inj SUBQ SCH ×4 (09:02→21:29)
[2017-04-21] MEDS: Bumetanide 0.25 mg/mL 4 mL Inj IV SCH (09:04)
[2017-04-21] MEDS: Senna-Docusate 8.6-50 mg Tablet PO SCH ×2 (09:05→21:24)
[2017-04-21] MEDS: oxyCODONE ER 10 mg ER12 Tablet PO SCH ×2 (09:05→20:30)
--- NOTE | 2017-04-21 10:28 | PCM.PHAPRO ---
Progress Date of Service: Apr 21, 2017 Chest pain INR = 1.68, hct = 35.7, plts = 200. Pt continues on warfarin therapy for afib and h/o DVT. INR goal 2-3. Will give warfarin 7.5 mg PO tonight. INRs ordered. Pharmacy will follow this pt's warfarin therapy. Date -Apr 21-Apr INR 1.54 1.68 INR change 0.14 Warf Dose 7.5 7.5 mg Linn Miller PharmD Apr 21, 2017 10:28
--- NOTE | 2017-04-21 12:41 | PCM.PNMED ---
Subjective Date of Service Apr 21, 2017 Subjective No new complaints of chest pain, dyspnea, nausea vomiting. Patient's been asleep 3 times when I visited his room and not arousable to gentle stimuli Exam Vital Signs Vital Sign - Last Date Time Temp Pulse Resp B/P Pulse Ox O2 Delivery O2 Flow Rate FiO2 04/21/17 08:37 37.0 76 19 123/68 95 Nasal Cannula 1.00 Intake and Output 04/20/17 04/20/17 04/21/17 Cumulative From/Thru 15:00 23:00 07:00 04/20/17 08:50 - 04/21/17 00:30 Intake Total 499 ml 499 ml Output Total 300 ml 300 ml Balance 199 ml 199 ml Intake Oral 250 ml 250 ml IV Total 249 ml 249 ml Output Urine Total 300 ml 300 ml # Bowel Movements 0 0 Exam Gen.- no apparent distress. Morbidly obese male in bed, sleeping Eyes- open conjunctiva clear, pupils equal nonicteric ENT- ears normal, nose normal Neck- supple/trach midline CVS- RRR Lungs normal rate, nonlabored no accessory muscle usage GI- huge pannus Musc- moving 4 no obvious deformity Unable to assess lower extremities because they are both wrapped left is in a brace/boot, right is just wrapped Neuro- cranial nerves II through XII intact to gross examination, nonfocal Skin- warm and dry, no rashes/lesions/wounds noted Psych-sleeping but arousable to gentle stimuli Lab and Diagnostics Result Diagram: 04/20/17 0925 04/21/17 0540 X-Rays, CTs and MRIs CT ANGIO CHEST PULMONARY EMBOLISM : Jonatan Valdez M.D. on 04/20/2017 at 14:12 1. No evidence for central pulmonary embolism. Enlarged main pulmonary artery would be consistent with background pulmonary arterial hypertension. 2. Cardiomegaly as before, without acute pulmonary disease. 3. Solitary small right lower lobe nodule is unchanged since January 2016, reassuring for benign etiology. Dictated by: Jonatan Valdez M.D. on 04/20/2017 at 14:12 12-lead ECG Rate 74, QTC [address] segment depression, abnormal R-wave progression concurrently and personally reviewed by Angeles 04/20 . Atrial fibrillation . Ventricular premature complex . Nonspecific intraventricular conduction delay . Abnormal R-wave progression, early transition . Prolonged QT interval . When compared with ECG of 20-Apr-2017 9:08:57, . No significant change Cardiac Echo Impressions Echocardiogram Report: Néstor Gonsales on 01/30/2016 The left ventricle is mild-moderately dilated but measures somewhat smaller compared to the previous study. Left ventricular systolic function is moderately reduced with the ejection fraction estimated to be 35-40% with a significant dyssynchronous contraction pattern, consistent with a conduction abnormality but no focal wall motion abnormalities. Compared to the prior exam, left ventricular function is slightly improved. There is mild concentric left ventricular hypertrophy that is unchanged compared to the previous study. The right ventricle is moderately dilated and right ventricular systolic function is moderately reduced but grossly appears unchanged compared to the previous study. The right ventricular systolic pressure is estimated at 60 mmHg assuming a right atrial pressure of 15 mm Hg, and is likely moderately higher compared to the previous study. There is moderate biatrial enlargement. Both atria are unchanged in size since the prior echo exam. There is mild mitral regurgitation that is significantly improved compared to the previous study. There is no other significant valvular heart disease. The aortic arch is mildly enlarged but is unchanged compared to the previous study. The patient was in atrial fibrillation with heart rates between 62-88 bpm during the exam. Assessment & Plan 61-year-old male admitted 04/20 with chest pain ruling out for IA. I believe he is having acute CHF exacerbation, is never been risk stratified and recent memory once we managed to diurese him and rule out other etiologies this probably needs to be done. 04/21 patient sleeping comfortably he is speaking well, diuresis so far 1 L. Blood sugars are in the 180s I will trend but I think that the patient will need at least metformin prior to discharge. INR continues to be subtherapeutic at 1.6 pharmacy dosing. #Acute/chronic systolic CHF -Daily I/os, weights -Trial Bumex 2 mg IV twice a day along with potassium/magnesium supplements -Patient will need risk stratification by Myoview when CHF is resolved he has not had this in over 10 years -Echocardiogram ordered EF was 30-40% January 2016, still pending 04/21 -We will add in Coreg/lisinopril in the next few days if blood pressure tolerating for now permissive hypertension perfusion purposes -Apparently the med rec was done but it is missing things like furosemide the patient tells us he is on. #Atrial fibrillation- subtherapeutic INR, warfarin per pharmacy, rate is already controlled keep him on telemetry #Chest pain- EKG not showing any acute changes cardiac enzymes normal 3 - apparently resolved 6/2 -Nitroglycerin/morphine when necessary to treat probable symptomatic acute CHF #Rheumatoid arthritis- will continue the patient's prednisone #NIDDM-we will start low-dose sliding scale and put patient on a carb controlled diet -I will consider doing an A1c if blood sugars are persistently elevated. #BPH-trial Flomax, check post void residual #CKD3-monitor CR while diuresing #Morbid obesity-evaluate for sleep apnea RTI nocturnal oximetry and O2 as needed #Prophylaxis-DVT cannot do SCDs, heparin until warfarin therapeutic, GI not indicated #Disposition-full code confirmed with patient, from home independent living. VTE Mechanical Devices: Anti-Embolic stockings Kirk Reynoso MD Apr 21, 2017 12:41
--- NOTE | 2017-04-21 13:09 | NUR ---
Social Work: Initial Assessment Data: Pt is a 61 y/o male admitted for chest pain, r/o a fib. Pt's PCP is Dr Moore, pt's insurance is [facility] Medicaid. EMR reviewed. Readmit score is 4, high. HIGHWAY DESIGN ENGINEER met with pt at bedside role explained. Pt states that he lives alone in [place] in a single story home where he uses a wheel chair at baseline. Pt has a IRENE caregiver 117 hours per month, lining caser is Linn Blake, clinicals requested to be faxed by UR specialist. Pt does not drive, is open with [facility], hx of SNF at [facility], no LTC or VA benefits and is not a caregiver. Pt states he travels by BLS home from hospital with [facility] benefit. Pt agreeable to home with IRENE and Nery C[facility]O. HIGHWAY DESIGN ENGINEER will await resume HH orders from MD. Assessment: Pt with IERNE. Plan: Pt will d/c home via BLS when medically stable with IRENE and resume [facility] HH pending MD order. HIGHWAY DESIGN ENGINEER will continue to follow. CATARINO Fitzpatrick Addendum: 04/21/17 at 1313 by CLARA CADET Amended: Links added.
--- NOTE | 2017-04-21 14:52 | NUR ---
Bilateral LE assessment Pt has refused bilateral lower leg assessment as they are both wrapped from toes to knees by WC. Ruddy from WC saw pt today and reassured me that skin was in good shape, please see WC note from today updating status. Pt will continue to be followed by WC as outpatient upon d/c. Care continues
--- NOTE | 2017-04-21 14:54 | NUR ---
faxed clinicals IRENE Blake to [phone]
--- NOTE | 2017-04-21 15:53 | DRSVH ---
[facility] [address] [place] [address] Echocardiogram Report Name: SHELBY MENDOSA Study Date: 04/21/2017 Height: 83 in Hospital Exam Location: [facility] Weight: 492 lb Gender: Male BSA: 3.5 m2 : 1955 Age: 61 yrs BP: 134/74 mmHg Reason For Study: Congestive Heart Failure Ordering Physician: Performed By: Lissette Coto HOSPITALIST [facility] Interpretation Summary Technically difficult study and suboptimal images were obtained. The patient was in atrial fibrillation with heart rates between 65-90 bpm during the exam. Severely dilated left ventricle with ejection fraction estimated to be 50- 55%. Wall motion is not well visualized. Suboptimal doppler study. Comparison is made with the echocardiogram of 01/30/2016, the images quality has worsen as his body size has increased. LV systolic function seems to improve. Procedure: A two-dimensional transthoracic echocardiogram with color flow and Doppler was performed. The study quality was technically difficult. Comparison is made with the echocardiogram of 01/30/2016. A contrast injection of Definity was performed to improve assessment of LV function. The patient was in atrial fibrillation with heart rates between 65-90 bpm during the exam. Left Ventricle: The left ventricle is severely dilated. The ejection fraction is estimated to be 50-55%. Diastolic function could not be accurately assessed due to atrial fibrillation. Aortic Valve: The aortic valve is not well visualized. The aortic valve is grossly normal. No aortic regurgitation is present. Tricuspid Valve: The tricuspid valve leaflets are thin and pliable. There is trace tricuspid regurgitation. Right ventricular systolic pressure is estimated to be 25 mmHg plus the clinically estimated CVP which cannot be estimated on this exam. Pulmonic Valve: The pulmonic valve is not well visualized. Great Vessels: The aortic root is not well visualized. The ascending aorta could not be visualized. Pericardium/ Pleura There is no pericardial effusion. MMode/2D Measurements & Calculations LVIDd LA A2 area RA long axis LV danielle. diameter/BSA : 7.2 cm (cm/m^2): 2.1 LA A4 area RA area: 28.7 cm RA vol: 103.2 ml LA length (vol) RA : 29.8 ml/m2 LA vol: 170.2 ml LA vol index : 49.2 ml/m2 Doppler Measurements & Calculations Ao V2 max MV E max elian Med Peak E' Elian TR max elian : 122.0 cm/sec : 87.3 cm/sec : 249.0 cm/sec Ao max P.0 mmHg MV P1/2t E/E' med: 11.0 TR max PG Ao mean P.3 mmHg : 53.8 msec Lat Peak E' Elian : 24.8 mmHg LVOT Max Elian : 59.4 cm/sec E/E' lat: 7.1 sev ratio: 0.54 E/e' average: 9.1 MV P1/2t max elian Ao V2 mean LV V1 max PG : 85.4 cm/sec Ao V2 VTI: 20.5 cmLV V1 VTI: 11.1 cm MVA(P1/2t): 4.1 cm2 Electronically signed by: Giuliana Martinez on Reading Physician:04/21/2017 03:53 PM
--- NOTE | 2017-04-21 16:22 | NUR ---
Wound Care Wound orders received, patient seen at bedside. 61 yo male well known to the wound center, has history of large hematoma at right anterior leg that has been 6 months in healing. Wraps taken down today no skin issues noted with the exception of right anterior arizmendi which has a healing ulcer which measures 3 cm L x 1 cm W x 0.2 cm D. this was cleaned with saline, dressed with Vaseline gauze to wound bed, aquacell ag over that then an abd pad and kerlix wrap. Leg wraps were replaced. Dressings can remain in place till Tuesday 04/24, wound care will recheck at that time.
[2017-04-21] MEDS ORDERED: Bumetanide 0.25 mg/mL 4 mL Inj IV SCH (17:30)
[2017-04-22] VITALS (9 sets, daily range): BP systolic 97–151; BP diastolic 61–99; PULSE 61–83; RESP 20; O2SAT 95–99
[2017-04-22] MEDS: oxyCODONE-Acetamin 10-325 mg Tablet PO PRN ×4 (03:23→21:59)
[2017-04-22] MEDS: Nitroglycerin 2% 1 Gm Ointment TOPICAL SCH ×3 (03:23→14:30)
[2017-04-22 06:00] LABS: Mean Corpuscular Hemoglobin 25.6 pg (27.0-35.0)
--- NOTE | 2017-04-22 06:18 | NUR ---
Pain Pt reporting pain 8/10 this shift to bilateral arms. Medicating pt with 2 tabs Percocet Q6 hours for pain control, will continue to monitor pt for pain.
[2017-04-22 06:28] LABS: INR 1.73 ratio
[2017-04-22] MEDS ORDERED: BUMETANIDE IVPUSH SCH (08:00)
[2017-04-22] MEDS: oxyCODONE ER 10 mg ER12 Tablet PO SCH ×2 (08:40→20:28)
[2017-04-22] MEDS: Senna-Docusate 8.6-50 mg Tablet PO SCH ×2 (08:40→20:28)
[2017-04-22] MEDS: Insulin LISPRO 300 Unit/3 mL Inj SUBQ SCH ×4 (08:41→22:00)
[2017-04-22] MEDS: Bumetanide 0.25 mg/mL 10 mL Inj IV SCH ×2 (08:58→17:23)
--- NOTE | 2017-04-22 12:38 | PCM.PNMED ---
Subjective Date of Service Apr 22, 2017 Subjective Being better but not as much as expected. Chest pain resolved since yesterday. No dyspnea, no nausea or vomiting. Exam Vital Signs Vital Sign - Last Date Time Temp Pulse Resp B/P Pulse Ox O2 Delivery O2 Flow Rate FiO2 04/22/17 10:58 76 04/22/17 08:38 151/91 04/22/17 05:28 36.7 20 95 Room Air 04/22/17 00:36 1.00 Intake and Output 04/21/17 04/21/17 04/22/17 Cumulative From/Thru 15:00 23:00 07:00 04/20/17 08:50 - 04/22/17 05:57 Intake Total 300 ml 789 ml 923 ml 2511 ml Output Total 1350 ml 1325 ml 1450 ml 4425 ml Balance -1050 ml -536 ml -527 ml -1914 ml Intake Oral 300 ml 789 ml 923 ml 2262 ml IV Total 249 ml Output Urine Total 1350 ml 1325 ml 1450 ml 4425 ml # Voids 3 3 # Bowel Movements 0 0 Exam Gen.- A+ O 3 no apparent distress. Morbidly obese male in bed Eyes- open conjunctiva clear, pupils equal nonicteric ENT- ears normal, nose normal, hearing intact Neck- supple/trach midline CVS- RRR Lungs nonlabored, normal rate GI-Q huge pannus Musc- moving 4 no obvious deformity Unable to assess lower extremities because they are both wrapped left is in a brace/boot, right is just wrapped Neuro- cranial nerves II through XII intact to gross examination, nonfocal Skin- warm and dry, no rashes/lesions/wounds noted Psych- pleasant and appropriate, Lab and Diagnostics Result Diagram: 04/22/17 0505 04/21/17 1325 X-Rays, CTs and MRIs CT ANGIO CHEST PULMONARY EMBOLISM : Jonatan Valdez M.D. on 04/20/2017 at 14:12 1. No evidence for central pulmonary embolism. Enlarged main pulmonary artery would be consistent with background pulmonary arterial hypertension. 2. Cardiomegaly as before, without acute pulmonary disease. 3. Solitary small right lower lobe nodule is unchanged since January 2016, reassuring for benign etiology. Dictated by: Jonatan Valdez M.D. on 04/20/2017 at 14:12 12-lead ECG Rate 74, QTC [address] segment depression, abnormal R-wave progression concurrently and personally reviewed by Angeles 04/20 . Atrial fibrillation . Ventricular premature complex . Nonspecific intraventricular conduction delay . Abnormal R-wave progression, early transition . Prolonged QT interval . When compared with ECG of 20-Apr-2017 9:08:57, . No significant change Cardiac Echo Impressions Echocardiogram Report: Néstor Gonsales on 01/30/2016 The left ventricle is mild-moderately dilated but measures somewhat smaller compared to the previous study. Left ventricular systolic function is moderately reduced with the ejection fraction estimated to be 35-40% with a significant dyssynchronous contraction pattern, consistent with a conduction abnormality but no focal wall motion abnormalities. Compared to the prior exam, left ventricular function is slightly improved. There is mild concentric left ventricular hypertrophy that is unchanged compared to the previous study. The right ventricle is moderately dilated and right ventricular systolic function is moderately reduced but grossly appears unchanged compared to the previous study. The right ventricular systolic pressure is estimated at 60 mmHg assuming a right atrial pressure of 15 mm Hg, and is likely moderately higher compared to the previous study. There is moderate biatrial enlargement. Both atria are unchanged in size since the prior echo exam. There is mild mitral regurgitation that is significantly improved compared to the previous study. There is no other significant valvular heart disease. The aortic arch is mildly enlarged but is unchanged compared to the previous study. The patient was in atrial fibrillation with heart rates between 62-88 bpm during the exam. Assessment & Plan 61-year-old male admitted 04/20 with chest pain ruling out for ID. I believe he is having acute CHF exacerbation, is never been risk stratified and recent memory once we managed to diurese him and rule out other etiologies this probably needs to be done. 04/21 patient sleeping comfortably he is speaking well, diuresis so far 1 L. Blood sugars are in the 180s I will trend but I think that the patient will need at least metformin prior to discharge. INR continues to be subtherapeutic at 1.6 pharmacy dosing. 04/22 patient's awake says he feels better. He is not diuresing as much as we would like, one dose metolazone 5mg, plus extra dose Bumex 2mg iv. He is complaining of generalized body aches and pains. INR still subtherapeutic, #Acute/chronic systolic CHF -Daily I/os, weights -Trial Bumex 2 mg IV BID k+/mag -risk stratification by Myoview when CHF is resolved -Echocardiogram ordered EF was 30-40% January 2016, current echo right ventricular failure has worsened but otherwise largely unchanged as above / -add coreg/lisinopril few days if blood pressure tolerating -Apparently the med rec was done but it is missing things like furosemide the patient tells us he is on. #Afib- subtherapeutic INR, warfarin per pharmacy, rate is already controlled keep him on telemetry #Chest pain- EKG not showing any acute changes cardiac enzymes normal 3 - apparently resolved 04/21 -Nitroglycerin/morphine when necessary to treat probable symptomatic acute CHF #Rheumatoid arthritis- will continue the patient's prednisone #NIDDM-we will start low-dose sliding scale and put patient on a carb controlled diet -a1c 7.1 04/20 -Would start metformin once patient out of acute CHF exacerbation #BPH-trial Flomax, check post void residual #CKD3-monitor CR while diuresing #Morbid obesity-evaluate for sleep apnea RTI nocturnal oximetry and O2 as needed #Prophylaxis-DVT cannot do SCDs, heparin until warfarin therapeutic, GI not indicated #Disposition-full code confirmed with patient, from home independent living. VTE Mechanical Devices: Anti-Embolic stockings Kirk Reynoso MD Apr 22, 2017 12:38
[2017-04-22] MEDS ORDERED: BUMETANIDE IV ONE (12:40)
[2017-04-22] MEDS ORDERED: SODIUM CHLORIDE 0.9% IV ONE (12:40)
[2017-04-22] MEDS ORDERED: Bumetanide 0.25 mg/mL 4 mL Inj IV ONE (13:00)
[2017-04-22 13:41] LABS: Magnesium 2.1 mg/dL (1.6-2.6)
--- NOTE | 2017-04-22 14:21 | NUR ---
Social Work-readiness for discharge: Data:EMR Reviewed. Pt is on day 2 of hospitalization for chest pain per H&P. Pt is not medically stable at this time anticipate 1-2 more days. Pt resides at home and has IRENE caregivers. Pt is currently open with [facility] services, SW received order for MD for resume orders. SW placed a call to Anai at [facility] and informed her of admission and explained SW would inform Weld when pt is closer to being ready to discharge. Pt will likely require S transport at discharge. SW will continue to follow. Assessment:Pt who is independent at baseline. Plan:Pt to discharge home when medically stable via BLS. Pt will need resume HH orders through [facility]. Pt will also continue with IRENE caregiving. NELI will continue to follow. CATARINO Webster
[2017-04-23] VITALS (9 sets, daily range): BP systolic 102–125; BP diastolic 65–75; PULSE 69–106; RESP 16–18; O2SAT 94–98
[2017-04-23] MEDS: Ondansetron 2 mg/mL 2 mL Inj IVPUSH PRN ×3 (02:27→19:26)
[2017-04-23] MEDS: oxyCODONE-Acetamin 10-325 mg Tablet PO PRN ×4 (04:33→23:00)
--- NOTE | 2017-04-23 04:35 | NUR ---
Pain Pt reports of pain on his joints/shoulders and legs, however denies any chest pain, sob. Has had an episode of nausea but has been controlled with zofran prn. Percocet administered PRN for pain control. HS meds administered as scheduled. Refused blood sugar checks and insulin administration. Educate pt about blood sugar controlled, but pt is not accepting. Hourly rounding in effect.
[2017-04-23 05:43] LABS: INR 2.02 ratio
[2017-04-23] MEDS: Insulin LISPRO 300 Unit/3 mL Inj SUBQ SCH ×4 (08:00→21:52)
[2017-04-23] MEDS: Senna-Docusate 8.6-50 mg Tablet PO SCH ×2 (08:49→20:09)
[2017-04-23] MEDS: oxyCODONE ER 10 mg ER12 Tablet PO SCH ×2 (08:50→20:09)
[2017-04-23] MEDS: Furosemide 10 mg/mL 4 mL Inj IVPUSH SCH ×3 (08:51→20:10)
--- NOTE | 2017-04-23 13:20 | PCM.PNMED ---
Subjective Date of Service Apr 23, 2017 Subjective Feeling all right, not paying as much as one would expect. No chest pain, no dyspnea and no nausea or vomiting Exam Vital Signs Vital Sign - Last Date Time Temp Pulse Resp B/P Pulse Ox O2 Delivery O2 Flow Rate FiO2 04/23/17 10:31 104 04/23/17 10:12 36.6 16 118/65 96 Nasal Cannula 1.00 Intake and Output 04/22/17 04/22/17 04/23/17 Cumulative From/Thru 15:00 23:00 07:00 04/20/17 08:50 - 04/23/17 06:32 Intake Total 1320 ml 420 ml 4251 ml Output Total 1750 ml 1750 ml 7925 ml Balance -430 ml -1330 ml -3674 ml Intake Oral 1320 ml 400 ml 3982 ml IV Total 20 ml 269 ml Output Urine Total 1750 ml 1750 ml 7925 ml # Voids 3 # Bowel Movements 0 0 Exam Gen.- A+ O 3 no apparent distress. Morbidly obese male in bed Eyes- open conjunctiva clear, pupils equal nonicteric ENT- ears normal, nose normal, hearing intact Neck- supple/trach midline CVS- RRR Lungs nonlabored, normal rate GI-Q huge pannus Musc- moving 4 no obvious deformity Unable to assess lower extremities because they are both wrapped left is in a brace/boot, right is just wrapped Neuro- cranial nerves II through XII intact to gross examination, nonfocal Skin- warm and dry, no rashes/lesions/wounds noted Psych- pleasant and appropriate, Lab and Diagnostics Result Diagram: 04/22/17 0505 04/23/17 0435 X-Rays, CTs and MRIs CT ANGIO CHEST PULMONARY EMBOLISM : Jonatan Valdez M.D. on 04/20/2017 at 14:12 1. No evidence for central pulmonary embolism. Enlarged main pulmonary artery would be consistent with background pulmonary arterial hypertension. 2. Cardiomegaly as before, without acute pulmonary disease. 3. Solitary small right lower lobe nodule is unchanged since January 2016, reassuring for benign etiology. Dictated by: Jonatan Valdez M.D. on 04/20/2017 at 14:12 12-lead ECG Rate 74, QTC [address] segment depression, abnormal R-wave progression concurrently and personally reviewed by Angeles 04/20 . Atrial fibrillation . Ventricular premature complex . Nonspecific intraventricular conduction delay . Abnormal R-wave progression, early transition . Prolonged QT interval . When compared with ECG of 20-Apr-2017 9:08:57, . No significant change Cardiac Echo Impressions Echocardiogram Report: Néstor Gonsales on 01/30/2016 The left ventricle is mild-moderately dilated but measures somewhat smaller compared to the previous study. Left ventricular systolic function is moderately reduced with the ejection fraction estimated to be 35-40% with a significant dyssynchronous contraction pattern, consistent with a conduction abnormality but no focal wall motion abnormalities. Compared to the prior exam, left ventricular function is slightly improved. There is mild concentric left ventricular hypertrophy that is unchanged compared to the previous study. The right ventricle is moderately dilated and right ventricular systolic function is moderately reduced but grossly appears unchanged compared to the previous study. The right ventricular systolic pressure is estimated at 60 mmHg assuming a right atrial pressure of 15 mm Hg, and is likely moderately higher compared to the previous study. There is moderate biatrial enlargement. Both atria are unchanged in size since the prior echo exam. There is mild mitral regurgitation that is significantly improved compared to the previous study. There is no other significant valvular heart disease. The aortic arch is mildly enlarged but is unchanged compared to the previous study. The patient was in atrial fibrillation with heart rates between 62-88 bpm during the exam. Assessment & Plan 61-year-old male admitted 04/20 with chest pain ruling out for LA. I believe he is having acute CHF exacerbation, is never been risk stratified and recent memory once we managed to diurese him and rule out other etiologies this probably needs to be done. 04/21 patient sleeping comfortably he is speaking well, diuresis so far 1 L. Blood sugars are in the 180s I will trend but I think that the patient will need at least metformin prior to discharge. INR continues to be subtherapeutic at 1.6 pharmacy dosing. 04/22 patient's awake says he feels better. He is not diuresing as much as we would like, one dose metolazone 5mg, plus extra dose Bumex 2mg iv. He is complaining of generalized body aches and pains. INR still subtherapeutic, 04/23 only diuresed 1 L yesterday. Changing regimen to furosemide 120 mg 3 times a day and metolazone 5 mg daily. INR therapeutic today, renal function stable. Seems to be peeing all right. #Acute/chronic systolic CHF -Daily I/os, weights -Trial Bumex 2 mg IV BID k+/mag -risk stratification by Myoview when CHF is resolved -Echocardiogram ordered EF was 30-40% January 2016, current echo right ventricular failure has worsened but otherwise largely unchanged as above / -add coreg/lisinopril few days if blood pressure tolerating -Apparently the med rec was done but it is missing things like furosemide the patient tells us he is on. #Afib- subtherapeutic INR, warfarin per pharmacy, rate is already controlled keep him on telemetry #Chest pain- EKG not showing any acute changes cardiac enzymes normal 3 - apparently resolved 04/21 -Nitroglycerin/morphine when necessary to treat probable symptomatic acute CHF #Rheumatoid arthritis- will continue the patient's prednisone #NIDDM-we will start low-dose sliding scale and put patient on a carb controlled diet -a1c 7.1 04/20 -Would start metformin once patient out of acute CHF exacerbation #BPH-trial Flomax, check post void residual #CKD3-monitor CR while diuresing #Morbid obesity-evaluate for sleep apnea RTI nocturnal oximetry and O2 as needed #Prophylaxis-DVT cannot do SCDs, heparin until warfarin therapeutic, GI not indicated #Disposition-full code confirmed with patient, from home independent living. VTE Mechanical Devices: Anti-Embolic stockings Kirk Reynoso MD Apr 23, 2017 13:20
[2017-04-23] MEDS ORDERED: Warfarin 5 MG, Warfarin 2.5 MG PO ONE ×2 (17:00)
--- NOTE | 2017-04-23 18:14 | NUR ---
Refuse Bg check and insulin coverage Patient refused BG check and insulin coverage. States he does not need insulin.
[2017-04-24 01:15] VITALS: BP 110/64; PULSE 84; RESP 18; O2SAT 95
[2017-04-24] MEDS: Furosemide 10 mg/mL 4 mL Inj IVPUSH SCH ×4 (03:02→20:24)
[2017-04-24] MEDS: Ondansetron 2 mg/mL 2 mL Inj IVPUSH PRN ×2 (03:26→12:47)
[2017-04-24] MEDS: oxyCODONE-Acetamin 10-325 mg Tablet PO PRN ×3 (05:09→23:35)
[2017-04-24 05:12] VITALS: BP 104/69; PULSE 93; RESP 18; O2SAT 95
--- NOTE | 2017-04-24 05:38 | NUR ---
Noc activity Pt reports of still feeling a little chest pressure. Telemetry monitoring noted A-fib to sinus tachy. Percocet administered every 6 hours. Currently on 1LPM NC for comfort at HS. Reports of nausea but is controlled by zofran. HS meds administered as scheduled and Lasix IV. Pt has been refusing blood sugar checks and insulin administration. Intentional hourly rounding done, VSS and has been afebrile overnight.
[2017-04-24 05:58] LABS: INR 2.56 ratio
[2017-04-24 06:08] LABS: Magnesium 2.1 mg/dL (1.6-2.6)
--- NOTE | 2017-04-24 08:32 | NUR ---
transferred to CVL Patient transferred to CV for Stress Test at 0833.
[2017-04-24 10:49] VITALS: PULSE 112
--- NOTE | 2017-04-24 11:04 | PCM.PHAPRO ---
Progress Chest pain GF RTM RTM 3-Akbar 4-Akbar 5-Akbar 1.73 2.02 2.56 0.05 0.29 0.54 10MG X1 7.5 mg 5 Shin Rodríguez Pharm.D Apr 24, 2017 11:04
[2017-04-24] MEDS: Insulin LISPRO 300 Unit/3 mL Inj SUBQ SCH ×4 (12:00→22:00)
[2017-04-24] MEDS: oxyCODONE ER 10 mg ER12 Tablet PO SCH ×2 (12:51→20:31)
[2017-04-24] MEDS: Senna-Docusate 8.6-50 mg Tablet PO SCH ×2 (12:52→20:27)
[2017-04-24 12:55] VITALS: BP 97/71; PULSE 96; RESP 18; O2SAT 95
[2017-04-24] MEDS: Albumin 25% 50 GM in IV Premix 1 EACH IV SCH ×2 (13:10→15:56)
--- NOTE | 2017-04-24 15:02 | NUR ---
NUTRITION ASSESSMENT: ASSESS: 61 YO male admitted for chest pain, rule out a-fib. Pt to have stress test today per notes. Pt has been refusing most meals now x 4 days. PMHx: Morbid obesity, RLE DVT, Stage III chronic kidney disease, rheumatoid arthritis, DM type 2, Peripheral neuropathy. LABS: Reviewed. Cr 1.84, Glu 152. MEDS: Reviewed. GI: No BM reported. CURRENT WT: 212.3 kg. Adj BW: 136.25 kg. DIET: Heart Healthy, Diabetic. Refusing most po intake x 4 days. EST. NEEDS: 7621-4042 kcals (20-25 kcals/kg Adj BW), 110-165 g protein (0.8-1.2 g/kg Adj BW) NUTRITION DIAGNOSIS: 1.) Inadequate oral intake related to decreased ability to consume sufficient energy as evidenced by current refusal of meals. NUTRITION INTERVENTION: 1.) Will add ensure at meals to encourage increased po intake. MONITOR / EVAL: PO intake, labs, nutritional status. Follow per high nutritional risk guidelines. Addendum: 04/24/17 at [address] Pt already receiving glucerna on all trays. Continue to send glucerna as ordered.
--- NOTE | 2017-04-24 15:09 | DRSVH ---
PROCEDURE: 1 DAY PHARMACOLOGICAL STRESS TEST Rest and pharmacological stress myocardial perfusion SPECT; gated images not acquired. RADIOPHARMACEUTICAL: 17.3 mCi Tc-99m tetrafosmin IV at rest and 45.6 mCi Tc-99m tetrafosmin IV at pea k effect of pharmacological stress. [id number] was performed. INDICATIONS: 61 year-old male with history of CHF, diabetes, atrial fibrillation, and cardiomyopathy presenting for evaluation of chest pain. TECHNIQUE: Radiopharmaceutical was injected at peak stress test, and also at rest. SPECT images wer e obtained. SPECT myocardial perfusion images were displayed in short axis, horizontal long axis, an d vertical long axis views. Images were reviewed using [employer] software. COMPARISON: None. CARDIAC STRESS: A pharmacologic stress test was performed under the supervision of an attending staff, using an infus ion of [employer]. Hemodynamic data: There is normal blood pressure and heart rate response to pharmacologic stress. Symptoms: The patient denied anginal chest pain. Patient experienced nausea and vomiting. Aminophylline: 125 mg IV EKG: No diagnostic changes of ischemia. Frequent PVCs with rare couplets. FINDINGS: Raw data: There is good myocardial uptake of radiotracer. No significant motion artifacts. Lung-to -heart ratio is 0.49 (normal is less than 0.38 for tetrafosmin tracer). Left ventricle function: Gated images were unable to be obtained for functional assessment, due to i rregular heart rate. Myocardial perfusion: There is normal relative distribution of activity in the right and left ventri cular myocardium. There is a small fixed perfusion defect in the inferior apex. There is also fixed perfusion deficit throughout the inferior wall. IMPRESSION: 1. Abnormal myocardial perfusion images with a small fixed perfusion defect in the inferior apex con sistent with sequela of prior infarct. Fixed perfusion deficit throughout the inferior wall may refl ect soft tissue attenuation artifact or sequela of prior infarct, with evaluation limited in the abse nce of prone imaging. 2. Left ventricular ejection fraction and wall motion unable to be evaluated due to irregular heart rate. 3. No diagnostic EKG changes of ischemia following pharmacologic stress. PQRS ATTESTATIONS: Measure 322 - Is this imaging test primarily performed on a low-risk surgery patient for preoperative evaluation within 30 days preceding their low-risk non-cardiac surgery? Low-risk surgery is defined as cardiac or myocardial infarction less than 1%, including (but not limited to) endoscopic pr ocedures, superficial procedures, cataract surgery, and excisional breast surgery: Answer: No Measure 323 - Is this imaging test performed primarily for the monitoring of an asymptomatic patient who had percutaneous coronary intervention on the visit date or within 2 years of the visit date? An swer: No Measure 324 - Is this imaging test performed primarily for the initial detection and risk assessment on an asymptomatic, low coronary heart disease patient? Low CHD risk definition = clinicians should consider the maximum number of available patient factors used to estimate risk based on [place] (A TP III criteria), typically age, gender, diabetes, smoking status, and use of blood pressure medicati on, and integrate age appropriate estimates for missing elements, such as LDL or standard blood press ure. Answer: No Dictated by: Nisl Drew M.D. on 04/24/2017 at 15:02 Approved by: Nils Drew M.D. on 04/24/2017 at 15:08
--- NOTE | 2017-04-24 15:56 | NUR ---
Meds Withheld Due to patient not coming back from CVL until 1245, two afternoon meds (Furosemide and Albuminar) were withheld due to timing. aware.
--- NOTE | 2017-04-24 17:28 | PCM.PNMED ---
Subjective Date of Service Apr 24, 2017 Subjective Patient without complaints of chest pain, dyspnea, nausea or vomiting. Exam Vital Signs Vital Sign - Last Date Time Temp Pulse Resp B/P Pulse Ox O2 Delivery O2 Flow Rate FiO2 04/24/17 12:55 36.3 96 18 97/71 95 Nasal Cannula 1.00 Intake and Output 04/23/17 04/23/17 04/24/17 Cumulative From/Thru 15:00 23:00 07:00 04/20/17 08:50 - 04/24/17 05:49 Intake Total 250 ml 1182 ml 5683 ml Output Total 2400 ml 1350 ml 59198 ml Balance -2150 ml -168 ml -5992 ml Intake Oral 250 ml 1182 ml 5414 ml IV Total 269 ml Output Urine Total 2400 ml 1350 ml 30553 ml # Voids 3 # Bowel Movements 0 0 Exam Gen.- no apparent distress. Morbidly obese male in bed, when I came to see him twice today he was sleeping and then to 2 times I saw him rolling down the hallway for stress testing Eyes- open conjunctiva clear, pupils equal nonicteric ENT- ears normal, nose normal, hearing intact Neck- supple/trach midline CVS- RRR Lungs nonlabored, normal rate GI-Q huge pannus Musc- moving 4 no obvious deformity Unable to assess lower extremities because they are both wrapped left is in a brace/boot, right is just wrapped Neuro- cranial nerves II through XII intact to gross examination, nonfocal Skin- warm and dry, no rashes/lesions/wounds noted Psych- pleasant and appropriate, Lab and Diagnostics Result Diagram: 04/22/17 0505 04/24/17 0502 X-Rays, CTs and MRIs CT ANGIO CHEST PULMONARY EMBOLISM : Jonatan Valdez M.D. on 04/20/2017 at 14:12 1. No evidence for central pulmonary embolism. Enlarged main pulmonary artery would be consistent with background pulmonary arterial hypertension. 2. Cardiomegaly as before, without acute pulmonary disease. 3. Solitary small right lower lobe nodule is unchanged since January 2016, reassuring for benign etiology. Dictated by: Jonatan Valdez M.D. on 04/20/2017 at 14:12 12-lead ECG Rate 74, QTC [address] segment depression, abnormal R-wave progression concurrently and personally reviewed by Angeles 04/20 . Atrial fibrillation . Ventricular premature complex . Nonspecific intraventricular conduction delay . Abnormal R-wave progression, early transition . Prolonged QT interval . When compared with ECG of 20-Apr-2017 9:08:57, . No significant change Cardiac Echo Impressions Echocardiogram Report: Néstor Gonsales on 01/30/2016 The left ventricle is mild-moderately dilated but measures somewhat smaller compared to the previous study. Left ventricular systolic function is moderately reduced with the ejection fraction estimated to be 35-40% with a significant dyssynchronous contraction pattern, consistent with a conduction abnormality but no focal wall motion abnormalities. Compared to the prior exam, left ventricular function is slightly improved. There is mild concentric left ventricular hypertrophy that is unchanged compared to the previous study. The right ventricle is moderately dilated and right ventricular systolic function is moderately reduced but grossly appears unchanged compared to the previous study. The right ventricular systolic pressure is estimated at 60 mmHg assuming a right atrial pressure of 15 mm Hg, and is likely moderately higher compared to the previous study. There is moderate biatrial enlargement. Both atria are unchanged in size since the prior echo exam. There is mild mitral regurgitation that is significantly improved compared to the previous study. There is no other significant valvular heart disease. The aortic arch is mildly enlarged but is unchanged compared to the previous study. The patient was in atrial fibrillation with heart rates between 62-88 bpm during the exam. Assessment & Plan 61-year-old male admitted 04/20 with chest pain ruling out for CT. I believe he is having acute CHF exacerbation, is never been risk stratified and recent memory once we managed to diurese him and rule out other etiologies this probably needs to be done. 04/21 patient sleeping comfortably he is speaking well, diuresis so far 1 L. Blood sugars are in the 180s I will trend but I think that the patient will need at least metformin prior to discharge. INR continues to be subtherapeutic at 1.6 pharmacy dosing. 04/22 patient's awake says he feels better. He is not diuresing as much as we would like, one dose metolazone 5mg, plus extra dose Bumex 2mg iv. He is complaining of generalized body aches and pains. INR still subtherapeutic, 04/23 only diuresed 1 L yesterday. Changing regimen to furosemide 120 mg 3 times a day and metolazone 5 mg daily. INR therapeutic today, renal function stable. Seems to be peeing all right. 04/24 patient renal function deteriorating, blood pressure declining, calling for renal consult. Continuing furosemide and metolazone. Myoview was completed showed fixed defect. #Acute/chronic systolic CHF -Daily I/os, weights -Trial Bumex 2 mg IV BID k+/mag , minimal diuresis 04/23 -risk stratification by Myoview when CHF is resolved -Echocardiogram ordered EF was 30-40% January 2016, current echo right ventricular failure has worsened but otherwise largely unchanged as above 04/21 -add coreg/lisinopril few days if blood pressure tolerating #Afib- subtherapeutic INR, warfarin per pharmacy, rate is already controlled keep him on telemetry #CAD-By Myoview 04/24/17. atorvastatin started 04/24, beta destinee+ herber/ARB if/ when BP tolerates. #Chest pain, resolved- EKG not showing any acute changes cardiac enzymes normal 3 - apparently resolved 04/21 -Nitroglycerin/morphine when necessary to treat probable symptomatic acute CHF -Myoview shows fixed defect c/w CAD #Rheumatoid arthritis- will continue the patient's prednisone #NIDDM-we will start low-dose sliding scale and put patient on a carb controlled diet -a1c 7.1 04/20 -Would start metformin once patient out of acute CHF exacerbation #BPH-trial Flomax, check post void residual #CKD3-monitor CR while diuresing #Morbid obesity-evaluate for sleep apnea RTI nocturnal oximetry and O2 as needed #Prophylaxis-DVT cannot do SCDs, heparin until warfarin therapeutic, GI not indicated #Disposition-full code confirmed with patient, from home independent living. [employer] Devices: Anti-Embolic stockings Kirk Reynoso MD Apr 24, 2017 17:28
--- NOTE | 2017-04-24 17:41 | NUR ---
Med Withheld Withheld Metolazone 5mg 1730 dose b/c also ordered Metolazone 5mg at 1725. Clarified with MD, he only wanted 5mg of Metolazone.
[2017-04-24 17:52] VITALS: BP 117/66; PULSE 113; RESP 18; O2SAT 100
[2017-04-24 20:17] VITALS: BP 103/69; PULSE 82; RESP 18; O2SAT 95
[2017-04-25] VITALS (9 sets, daily range): BP systolic 99–126; BP diastolic 63–78; PULSE 67–95; RESP 18; O2SAT 93–96
[2017-04-25] MEDS: Furosemide 10 mg/mL 4 mL Inj IVPUSH SCH ×2 (02:38→08:52)
--- NOTE | 2017-04-25 05:15 | NUR ---
PT ACTIVITY/REFUSAL OF CARE/PAIN Pt has remained in bed. Pt is able to turn onto sides, as pts gown and bedding needed to be changed during the shift. Pt refused Q2H turning. Pt refuses BG checks. Pt has c/o pain "4-5", "in my lower back and arms." Scheduled and prn po pain medications given. Some relief reported by pt, and other times pt observed to be sleeping, no s/sx of discomfort. Continue to monitor. Call light in reach. Intentional rounding.
[2017-04-25 06:05] LABS: INR 2.62 ratio
[2017-04-25] MEDS: oxyCODONE-Acetamin 10-325 mg Tablet PO PRN ×3 (06:06→23:25)
[2017-04-25 06:19] LABS: Magnesium 2.3 mg/dL (1.6-2.6)
[2017-04-25] MEDS: Insulin LISPRO 300 Unit/3 mL Inj SUBQ SCH ×4 (08:00→21:43)
[2017-04-25] MEDS: Senna-Docusate 8.6-50 mg Tablet PO SCH ×2 (08:50→20:30)
[2017-04-25] MEDS: oxyCODONE ER 10 mg ER12 Tablet PO SCH ×2 (08:50→20:29)
--- NOTE | 2017-04-25 09:18 | NUR ---
Social Work-readiness for discharge: Data:EMR Reviewed. Pt is on day 5 of hospitalization for chest pain per H&P. Pt is not medically stable at this time anticipate 1-2 more days. Pt resides at home and has [facility] caregivers. MD order received for resume HH orders for [facility] .Pt also has [facility] caregivers at home. Pt will likely require BLS transport at discharge. SW will continue to follow. Assessment:Pt who is independent at baseline. Plan:Pt to discharge home when medically stable via BLS. [facility] Pt will also continue with [facility] caregiving. SW will continue to follow. CATARINO Webster
--- NOTE | 2017-04-25 10:52 | DRSVH ---
PROCEDURE: US RENAL SONOGRAM INDICATIONS: renal failure, eval obstr uropathy + TECHNIQUE: Real-time scanning was performed of the kidneys and bladder, with image documentation. COMPARISON: [facility], CT, CT ANGIO CHEST PE, 04/20/2017, 13:52. FINDINGS: Kidneys: Right kidney is not well visualized but there does appear to be a right renal cyst measurin g roughly 6.5 cm. Visualized portions of the right renal cortex appear increased in echogenicity. T he left kidney measures 13.0 cm in length and there is renal cortical thinning with the cortex measur ing roughly 1.0 cm. Increased left renal cortical echogenicity also present. Sludge visualized with in the gallbladder. Bladder: Bladder not visualized. Miscellaneous: No free pelvic fluid. IMPRESSION: 1. Suboptimal exam secondary to patient's body habitus demonstrating incomplete visualization of the right kidney with portions of the right kidney demonstrating increased renal cortical echogenicity thomson ggesting medical renal disease. 2. Increased renal cortical echogenicity involving the left kidney also present with renal cortical t hinning also compatible with medical renal disease. No obstructive uropathy is seen. 3. Right kidney cyst. 4. Gallbladder sludge. Dictated by: Girish CHUNG Interpreted: Naya Orr MD on 04/25/2017 at 10:42 Transcribed by: SUMAYA on 04/25/2017 at 10:51 Approved by: Naya Orr M.D. on 04/26/2017 at 12:05
[2017-04-25] MEDS ORDERED: Potassium Chloride Inj 20 MEQ in Dextrose 5% 250 ML IV ONE (11:05)
--- NOTE | 2017-04-25 11:14 | ABG ---
DateTimeAnalyzed 11:08:00 -_ pH ____7.403 - pCO2 ___61.5__ -mmHg pO2 ___53.9__ -mmHg HCO3- ___37.5__ -mmol/L ABE ___10.9__ -mmol/L tHb ___12.1__ -g/dL O2Hb ___84.0__ -% COHb ____2.5__ -% MetHb ____0.7__ -% sO2 ___86.8__ -% FIO2 ___21.0__ -% Drawn By lab - Date/Time Notified____ 11:13:00 -_ Liter_Flow ____1.0__ -L/min Oxygen Device 1 __CANNULA - B 756 -mmHg tO2 ___14.3__ -Vol% Joon test _Positive -
[2017-04-25] MEDS: Ondansetron 2 mg/mL 2 mL Inj IVPUSH PRN (11:51)
--- NOTE | 2017-04-25 11:56 | PCM.PNMED ---
Subjective Date of Service Apr 25, 2017 Subjective Still not really pain. Annoyed because heart rate seems to jump whenever he moves. Denies dyspnea, chest pain, nausea or vomiting Exam Vital Signs Vital Sign - Last Date Time Temp Pulse Resp B/P Pulse Ox O2 Delivery O2 Flow Rate FiO2 04/25/17 10:27 95 04/25/17 09:36 36.4 18 108/74 93 Room Air 04/24/17 17:52 1.00 Intake and Output 04/24/17 04/24/17 04/25/17 Cumulative From/Thru 15:00 23:00 07:00 04/20/17 08:50 - 04/25/17 06:34 Intake Total 667 ml 946 ml 7296 ml Output Total 1100 ml 1775 ml 27337 ml Balance -433 ml -829 ml -7254 ml Intake Oral 640 ml 946 ml 7000 ml IV Total 27 ml 296 ml Output Urine Total 1100 ml 1775 ml 37234 ml # Voids 3 # Bowel Movements 1 1 Exam Gen.- no apparent distress. Morbidly obese male in bed, when I came to see him twice today he was sleeping and then to 2 times I saw him rolling down the hallway for stress testing Eyes- open conjunctiva clear, pupils equal nonicteric ENT- ears normal, nose normal, hearing intact Neck- supple/trach midline CVS- RRR Lungs nonlabored, normal rate GI-Q huge pannus Musc- moving 4 no obvious deformity Unable to assess lower extremities because they are both wrapped left is in a brace/boot, right is just wrapped Neuro- cranial nerves II through XII intact to gross examination, nonfocal Skin- warm and dry, no rashes/lesions/wounds noted Psych- pleasant and appropriate, Lab and Diagnostics Result Diagram: 04/22/17 0505 04/25/17 0530 X-Rays, CTs and MRIs CT ANGIO CHEST PULMONARY EMBOLISM : Jonatan Valdez M.D. on 04/20/2017 at 14:12 1. No evidence for central pulmonary embolism. Enlarged main pulmonary artery would be consistent with background pulmonary arterial hypertension. 2. Cardiomegaly as before, without acute pulmonary disease. 3. Solitary small right lower lobe nodule is unchanged since January 2016, reassuring for benign etiology. Dictated by: Jonatan Valdez M.D. on 04/20/2017 at 14:12 12-lead ECG Rate 74, QTC [address] segment depression, abnormal R-wave progression concurrently and personally reviewed by Angeles 04/20 . Atrial fibrillation . Ventricular premature complex . Nonspecific intraventricular conduction delay . Abnormal R-wave progression, early transition . Prolonged QT interval . When compared with ECG of 20-Apr-2017 9:08:57, . No significant change Cardiac Echo Impressions Echocardiogram Report: Néstor Gonsales on 01/30/2016 The left ventricle is mild-moderately dilated but measures somewhat smaller compared to the previous study. Left ventricular systolic function is moderately reduced with the ejection fraction estimated to be 35-40% with a significant dyssynchronous contraction pattern, consistent with a conduction abnormality but no focal wall motion abnormalities. Compared to the prior exam, left ventricular function is slightly improved. There is mild concentric left ventricular hypertrophy that is unchanged compared to the previous study. The right ventricle is moderately dilated and right ventricular systolic function is moderately reduced but grossly appears unchanged compared to the previous study. The right ventricular systolic pressure is estimated at 60 mmHg assuming a right atrial pressure of 15 mm Hg, and is likely moderately higher compared to the previous study. There is moderate biatrial enlargement. Both atria are unchanged in size since the prior echo exam. There is mild mitral regurgitation that is significantly improved compared to the previous study. There is no other significant valvular heart disease. The aortic arch is mildly enlarged but is unchanged compared to the previous study. The patient was in atrial fibrillation with heart rates between 62-88 bpm during the exam. Assessment & Plan 61-year-old male admitted 04/20 with chest pain ruling out for [place]. I believe he is having acute CHF exacerbation, is never been risk stratified and recent memory once we managed to diurese him and rule out other etiologies this probably needs to be done. 04/21 patient sleeping comfortably he is speaking well, diuresis so far 1 L. Blood sugars are in the 180s I will trend but I think that the patient will need at least metformin prior to discharge. INR continues to be subtherapeutic at 1.6 pharmacy dosing. 04/22 patient's awake says he feels better. He is not diuresing as much as we would like, one dose metolazone 5mg, plus extra dose Bumex 2mg iv. He is complaining of generalized body aches and pains. INR still subtherapeutic, 04/23 only diuresed 1 L yesterday. Changing regimen to furosemide 120 mg 3 times a day and metolazone 5 mg daily. INR therapeutic today, renal function stable. Seems to be peeing all right. 04/24 patient renal function deteriorating, blood pressure declining, calling for renal consult. Continuing furosemide and metolazone. Myoview was completed showed fixed defect. #RAYMOND/CKD3-monitor CR while diuresing BUN/CR 26/2.05 04/25 -Given drop in blood pressure, rising BUN/CR I am consulting renal for assistance in diuresing this patient 04/25 (thanks) -Ultrasound kidneys also rule out EPH and urinary retention 04/25 -Certainly CTA contrast on admission is not helping #Acute/chronic systolic CHF -Daily I/os, weights -Trial Bumex 2 mg IV BID k+/mag , minimal diuresis 04/23 -risk stratification by [employer] when CHF is resolved -Echocardiogram ordered EF was 30-40% January 2016, current echo right ventricular failure has worsened but otherwise largely unchanged as above 04/21 -coreg/lisinopril when BP/renal fcn tolerate #Afib- subtherapeutic INR, warfarin per pharmacy, rate is already controlled keep him on telemetry #CAD-By [employer] 04/24/17. atorvastatin started 04/24, beta destinee+ herber/ARB if/ when BP tolerates. #Chest pain, resolved- EKG not showing any acute changes cardiac enzymes normal 3 - apparently resolved 04/21 -Nitroglycerin/morphine when necessary to treat probable symptomatic acute CHF -Myoview shows fixed defect c/w CAD #Rheumatoid arthritis- will continue the patient's prednisone #NIDDM-we will start low-dose sliding scale and put patient on a carb controlled diet -a1c 7.1 04/20 -Would start metformin once patient out of acute CHF exacerbation #BPH-trial Flomax, check post void residual #Morbid obesity-evaluate for sleep apnea RTI nocturnal oximetry and O2 as needed #Prophylaxis-DVT cannot do SCDs, heparin until warfarin therapeutic, GI not indicated #Disposition-full code confirmed with patient, from home independent living. [employer]: Anti-Embolic stockings Kirk Reynoso MD Apr 25, 2017 11:56
--- NOTE | 2017-04-25 12:19 | PCM.PHAPRO ---
Progress Warfarin Management by Pharmacy: -Indication: afib, history of dvt -Home Dose: warfarin 7.5mg daily -Inr Goal: 2-3 -[id number] Score: 2 -Concurrent Anticoagulation: baby asa -Drug Interactions: none noted (baby asa) -Disease Interactions: CHF -Coagulation Trends: 1-Akbar 2-Akbar 3-Akbar 4-Akbar 5-Akbar 6-Akbar 1.54 1.68 1.73 2.02 2.56 2.62 0.14 0.05 0.29 0.54 0.06 7.5 7.5 mg 10MG X1 7.5 mg 5 7 -Plan: pt is not eating. inr is therapeutic at 2.62. will give warfarin 7mg this evening and follow Michelle Jackson [facility] Apr 25, 2017 12:19
--- NOTE | 2017-04-25 13:46 | NUR ---
nausea pt asks for Zofran, feels nauseated after eating mashed potatoes and gravy.
[2017-04-25 14:15] LABS: Magnesium 2.4 mg/dL (1.6-2.6)
--- NOTE | 2017-04-25 15:19 | CONS ---
[address] [address] CONSULTATION REPORT PATIENT: SHELBY MENDOSA : 1955 MR#: [id number] ADMIT: 04/20/2017 JOB ID: [id number] DATE OF SERVICE: 04/25/2017 RENAL CONSULTATION: HISTORY: The patient is a very pleasant 61-year-old white male who was admitted to [facility] for acute shortness of breath and fluid overload with congestive heart failure. Since admission he has developed acute kidney injury and renal consultation is being sought for further evaluation of his acute kidney injury. The patient has a longstanding history of multiple medical problems centering around metabolic syndrome. It appears from his records that he has a baseline stage 3 chronic kidney disease. He also has a history of hypertension, diabetes and obstructive sleep apnea. He states that over the past several weeks he has had a progressive shortness of breath and pain with deep inspiration. There was some orthopnea and some lower extremity edema. In the emergency department, he was moderately short of breath and chest x-ray showed some mild increase in pulmonary vascularity. He subsequently underwent a CT angio, which did not show any evidence of any thrombosis. However, he did have increased pulmonary artery size consistent with chronic cor pulmonale. He was then diagnosed with congestive heart failure and was aggressively diuresed following his angiogram. He was given significantly large doses of furosemide, , albumin, and metolazone. Over the last several days, he has had an increase in his creatinine, decrease in blood pressure and decrease in urine output. He states that he has a history of renolithiasis and has underwent several procedures for this. He believes that his stone type is a calcium oxalate stone. Otherwise he denies any history of any proteinuria, non stone related hematuria, he has had several urinary tract infections and has a history of BPH. He states that he does have some intermittent difficulty with urination and occasionally urinating scant amounts of urine. He denies use of nonsteroidal anti-inflammatories. However, he does have a history of rheumatoid arthritis for which he is on prednisone intermittently. He denies the use of any nonsteroidal anti-inflammatories, biologics such as Imuran or methotrexate or Humira. He has a history of non-insulin dependent diabetes mellitus which was treated several years ago with significant weight loss and diet change. He states that over the last several months he has had an increase in weight and his A1c now is 7.1. There is also a longstanding history of hypertension with probable hypertensive heart disease and hypertensive nephrosclerosis. He does restrict his salt intake and is compliant with his medication. There is also a history of obstructive sleep apnea for which he uses a CPAP machine on a nightly basis. He also has a history of a Charcot foot in his right foot and wears Unna boots for this. He has also had a recent laceration to his right lower leg and is in an Unna boot for that. PAST MEDICAL HISTORY: Is significant for: 1. Atrial fibrillation for which she is on warfarin. 2. Dilated cardiomyopathy. 3. Metabolic syndrome. 4. Obstructive sleep apnea. 5. Prior history of DVT. 6. Stage 3 chronic kidney disease. 7. Rheumatoid arthritis. 8. Type 2 diabetes with peripheral neuropathy but denies a history of any retinal problems. 9. Hypertension with hypertensive heart disease. 10. Hypertensive nephrosclerosis. 11. Renolithiasis. 12. BPH. PAST SURGICAL HISTORY: Is significant for: 1. Several procedures which sound like an ESWL for kidney stone ablation. 2. Carpal tunnel release. 3. Left arm fracture repair. 4. Cardiac ablation. 5. He has also had a hiatal hernia repair. ALLERGIES: He is allergic to PENICILLIN. SOCIAL HISTORY: He denies the use of alcohol, tobacco or illicit drugs. 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 REVIEW OF SYSTEMS: Is detailed above. Otherwise he denies any antecedent cough, wheezing, fever, chills, nausea, vomiting, diarrhea or constipation. FAMILY HISTORY: Noncontributory. MEDICATIONS: At time of my evaluation include aspirin, atorvastatin, spironolactone, metolazone, furosemide injection, vitamin D 3, insulin, oxycodone, potassium chloride, magnesium oxide, tamsulosin. PHYSICAL EXAMINATION: Revealed a quite large body habitus with moderate obesity and a 61-year-old white male who was alert and oriented x3, in no distress at time of my evaluation. His blood pressure at time of my evaluation is 121/78 with a pulse rate of 81. Please note that he has had several episodes of significant hypotension in the last several days. HEENT examination is remarkable for pale sclerae. Cornea, conjunctiva, pupils, and extra-ocular muscles were within normal limits. Neck is supple without adenopathy, thyromegaly or jugular venous distention. Lungs were clear to auscultation. Heart was irregularly irregular. Abdomen is soft, without any tenderness, rebound, guarding, masses or hepatosplenomegaly. Extremities: Both distal lower extremities were in Unna boots. However, his proximal lower extremities did not show any evidence of any edema. There was no evidence of half and half nails noted. Skin turgor was very poor with significant tenting noted and there was no evidence of any rashes. LABORATORY EXAMINATION: At time of admission, his creatinine was 1.34. Since admission he has had a progressive increase in his creatinine to a level today of 2.05 and a BUN of 26. His sodium is 139, potassium 3.2, chloride of 89, bicarbonate 33, glucose is 141, uric acid is 14.3. No urinalysis has been obtained during this admission. His white count today was 5, hemoglobin of 10.4, hematocrit 34.2, red cell indices were hypochromic but normocytic. Platelet count was normal as was his differential. Renal ultrasound was obtained, and showed diffuse increased echogenicity with a slight decrease in size consistent with chronic kidney disease and a small right cyst was noted in the kidney. IMPRESSION: 1. Acute kidney injury secondary to IV contrast and over diuresis with dehydration and hypotension. 2. Chronic kidney disease stage 3. 3. Diabetic nephropathy. 4. Hypertension with hypertensive heart disease and hypertensive nephrosclerosis. 5. Obstructive sleep apnea. 6. Metabolic syndrome. 7. Hypokalemia with probable metabolic alkalosis. RECOMMENDATION: 1. We need to stop all the diuretics immediately. I would also like to start him back on half normal saline at 75 mL/hour, replace his potassium losses, check venous blood gas to see his acid base status as I imagine he probably has some significant CO2 retention which has not been addressed. 2. I would like to start him on allopurinol 100 mg once a day. Once again, I would like to thank you for allowing me to participate in the care of this most pleasant interesting patient. I will be following him closely with you.
--- NOTE | 2017-04-25 17:55 | NUR ---
Wound note Patient seen for dressing change and wound care, farrow wrap removed from right lower leg, anterior arizmendi wound 1/2 its previous dimensions ( 3 cm L x 1 cm W x 0.2 cm D), cleaned wound with saline and gauze, redressed with xeroform, adaptic, abd pad and kerlix wrap. Improving, Follow up with Dr Butterfield in her office on discharge.
[2017-04-26] VITALS (7 sets, daily range): BP systolic 102–114; BP diastolic 65–75; PULSE 74–88; RESP 18–20; O2SAT 95–97
[2017-04-26 05:18] LABS: APPEARANCE,URINE CLOUDY (CLEAR,HAZY); COLOR,URINE YELLOW (YELLOW); OCCULT BLOOD,URINE LARGE (NEGATIVE)
[2017-04-26 05:19] LABS: UROBILINOGEN,URINE NORMAL (NORMAL)
[2017-04-26 06:31] LABS: Magnesium 2.5 mg/dL (1.6-2.6)
[2017-04-26] MEDS: oxyCODONE-Acetamin 10-325 mg Tablet PO PRN ×3 (06:32→18:37)
--- NOTE | 2017-04-26 06:36 | NUR ---
PAIN Pt continues to have pain in arms and low back. Pt has rated pain "5". Scheduled and prn po pain medications administered. Pt has reported some relief and has also been observed to be sleeping post pain hospitalist medical director assessments. Continue to monitor. Call light in reach. Intentional rounding.
[2017-04-26 06:50] LABS: INR 2.82 ratio
[2017-04-26] MEDS: Insulin LISPRO 300 Unit/3 mL Inj SUBQ SCH ×4 (07:40→22:00)
[2017-04-26] MEDS: Senna-Docusate 8.6-50 mg Tablet PO SCH ×2 (09:51→20:00)
[2017-04-26] MEDS: oxyCODONE ER 10 mg ER12 Tablet PO SCH ×2 (09:51→20:00)
[2017-04-26] MEDS ORDERED: Potassium Chloride Inj 20 MEQ in Dextrose 5% 250 ML IV ONE (10:25)
--- NOTE | 2017-04-26 10:29 | PCM.PHAPRO ---
Progress Warfarin Management by Pharmacy: -Indication: afib, history of dvt -Home Dose: warfarin 7.5mg daily -Inr Goal: 2-3 -[id number] Score: 2 -Concurrent Anticoagulation: baby asa -Drug Interactions: none noted (baby asa) -Disease Interactions: CHF -Coagulation Trends: 1-Akbar 2-Akbar 3-Akbar 4-Akbar 5-Akbar 6-Akbar 7-Akbar 1.54 1.68 1.73 2.02 2.56 2.62 2.82 0.14 0.05 0.29 0.54 0.06 0.2 7.5 7.5 mg 10MG X1 7.5 mg 5 7 6 -Plan: pt ate 90% of meal last evening. will give warfarin 6mg this evening and monitor Michelle Jackson [facility] Apr 26, 2017 10:29
[2017-04-26] MEDS ORDERED: Cefepime Inj 2 GM in IV Premix 1 EACH IV SCH (10:40)
--- NOTE | 2017-04-26 13:18 | NUR ---
NUTRITION FOLLOW-UP: ASSESS: 61 YO male admitted for chest pain, rule out a-fib. Pt is s/p stress test. Pt was found to be volume overloaded on admit, but now appears to be volume depleted, nephrology following. PO intake is starting to improve with pt eating 90-100% x 2 out of the past 3 meals. PMHx: Morbid obesity, RLE DVT, Stage III chronic kidney disease, rheumatoid arthritis, DM type 2, Peripheral neuropathy. LABS: Reviewed. K+ 3.4, BUN 29, Cr 2.14, Glu 145 MEDS: Reviewed. GI: BM x 1 (04/24) SKIN: Chronic healing large hematoma on R anterior arizmendi, wound care following. CURRENT WT: 208.1 kg. Admit wt: 212.3 kg. Adj BW: 136.25 kg. DIET: Heart Healthy, Diabetic. Refusing most meals but po has been improving with pt eating 90-100% of 2 out past 3 meals. EST. NEEDS: [id number] kcals (20-25 kcals/kg Adj BW), 110-165 g protein (0.8-1.2 g/kg Adj BW) NUTRITION DIAGNOSIS: 1.) Inadequate oral intake related to decreased ability to consume sufficient energy as evidenced by current refusal of meals--IMPROVING. NUTRITION INTERVENTION: 1.) Continue to send Glucerna on all trays. MONITOR / EVAL: PO intake, labs, nutritional status. Follow per high nutritional risk guidelines.
--- NOTE | 2017-04-26 13:19 | PCM.PNMED ---
Subjective Date of Service Apr 26, 2017 Subjective Patient still not diuresing so much. Is not having chest pain, dyspnea, nausea or vomiting. Exam Vital Signs Vital Sign - Last Date Time Temp Pulse Resp B/P Pulse Ox O2 Delivery O2 Flow Rate FiO2 04/26/17 11:19 86 04/26/17 09:53 Supplement Oxygen 04/26/17 09:08 36.7 20 106/72 97 2.00 Intake and Output 04/25/17 04/25/17 04/26/17 Cumulative From/Thru 15:00 23:00 07:00 04/20/17 08:50 - 04/26/17 06:33 Intake Total 1239 ml 1671 ml 60701 ml Output Total 850 ml 850 ml 73290 ml Balance 389 ml 821 ml -6044 ml Intake Oral 520 ml 773 ml 8293 ml IV Total 719 ml 898 ml 1913 ml Output Urine Total 850 ml 850 ml 52886 ml # Voids 3 # Bowel Movements 1 Exam Gen.- no apparent distress. Morbidly obese male in bed, when I came to see him twice today he was sleeping and then to 2 times I saw him rolling down the hallway for stress testing Eyes- open conjunctiva clear, pupils equal nonicteric ENT- ears normal, nose normal, hearing intact Neck- supple/trach midline CVS- RRR Lungs nonlabored, normal rate GI-Q huge pannus Musc- moving 4 no obvious deformity Unable to assess lower extremities because they are both wrapped left is in a brace/boot, right is just wrapped Neuro- cranial nerves II through XII intact to gross examination, nonfocal Skin- warm and dry, no rashes/lesions/wounds noted Psych- pleasant and appropriate, Lab and Diagnostics Result Diagram: 04/22/17 0505 04/26/17 0340 X-Rays, CTs and MRIs CT ANGIO CHEST PULMONARY EMBOLISM : Jonatan Valdez M.D. on 04/20/2017 at 14:12 1. No evidence for central pulmonary embolism. Enlarged main pulmonary artery would be consistent with background pulmonary arterial hypertension. 2. Cardiomegaly as before, without acute pulmonary disease. 3. Solitary small right lower lobe nodule is unchanged since January 2016, reassuring for benign etiology. Dictated by: Jonatan Valdez M.D. on 04/20/2017 at 14:12 12-lead ECG Rate 74, QTC [address] segment depression, abnormal R-wave progression concurrently and personally reviewed by Angeles 04/20 . Atrial fibrillation . Ventricular premature complex . Nonspecific intraventricular conduction delay . Abnormal R-wave progression, early transition . Prolonged QT interval . When compared with ECG of 20-Apr-2017 9:08:57, . No significant change Cardiac Echo Impressions Echocardiogram Report: Néstor Gonsales on 01/30/2016 The left ventricle is mild-moderately dilated but measures somewhat smaller compared to the previous study. Left ventricular systolic function is moderately reduced with the ejection fraction estimated to be 35-40% with a significant dyssynchronous contraction pattern, consistent with a conduction abnormality but no focal wall motion abnormalities. Compared to the prior exam, left ventricular function is slightly improved. There is mild concentric left ventricular hypertrophy that is unchanged compared to the previous study. The right ventricle is moderately dilated and right ventricular systolic function is moderately reduced but grossly appears unchanged compared to the previous study. The right ventricular systolic pressure is estimated at 60 mmHg assuming a right atrial pressure of 15 mm Hg, and is likely moderately higher compared to the previous study. There is moderate biatrial enlargement. Both atria are unchanged in size since the prior echo exam. There is mild mitral regurgitation that is significantly improved compared to the previous study. There is no other significant valvular heart disease. The aortic arch is mildly enlarged but is unchanged compared to the previous study. The patient was in atrial fibrillation with heart rates between 62-88 bpm during the exam. Assessment & Plan 61-year-old male admitted 04/20 with chest pain ruling out for GA. I believe he is having acute CHF exacerbation, is never been risk stratified and recent memory once we managed to diurese him and rule out other etiologies this probably needs to be done. 04/20-04/25 I believe that this patient was volume overloaded and attempted to diurese him and instead he developed RAYMOND, hypotension and tachycardia as a result I consulted nephrology to help me manage the fluid status in him. They concluded that it was intravascularly volume depleted and started him on IV fluid stopping the diuresis which has improved this patient's renal function and cardiovascular function at this point in time. This chest pain is totally resolved and he was already risk stratified he needs medical management for coronary artery disease. He has been evaluated by physical therapy and found to be at his baseline malfunction he will not work with them here, he has his home arranged so that he can get in and out of bed into his wheelchair and that is where he is going to and he is not changing his level of care. When nephrology gives us definitive plan regarding fluid management I think this patient is ready for discharge. Perhaps 04/27. Somewhere along the way if not inpatient and outpatient patient may benefit from starting Coreg and/or lisinopril, currently blood pressure and renal failure precluded starting them. #Hypermagnesemia overcorrected magnesium in setting of renal failure #Hypokalemia continuing to correct please keep monitoring #RAYMOND/CKD3- improving with stopping diuresis and ental hydration thank you Dr. Oneal/nephrology for assistance 04/26 -Given drop in blood pressure, rising BUN/CR I am consulting renal for assistance in diuresing this patient 04/25 (thanks) -Ultrasound kidneys ruled out outlet obstruction and urinary retention 04/25 appears to be cortical thinning from chronic disease. -Certainly CTA contrast on admission did not helping #Acute/chronic systolic CHF -Daily I/os, weights -Trial Bumex 2 mg IV BID k+/mag , minimal diuresis 04/23 failed and discontinued for above-mentioned reasons 04/26 -risk stratification by [email or web address] when CHF is resolved -Echocardiogram ordered EF was 30-40% January 2016, current echo right ventricular failure has worsened but otherwise largely unchanged as above 04/21 -coreg/lisinopril when BP/renal fcn tolerate #Afib- warfarin per pharmacy, rate is already controlled keep him on telemetry #CAD-By [email or web address] 04/24/17. atorvastatin started 04/24, beta destinee+ herber/ARB if/ when BP tolerates. #Chest pain, resolved- EKG not showing any acute changes cardiac enzymes normal 3 - apparently resolved 04/21 -Nitroglycerin/morphine when necessary to treat probable symptomatic acute CHF -Myoview shows fixed defect c/w CAD #Rheumatoid arthritis- will continue the patient's prednisone #NIDDM-we will start low-dose sliding scale and put patient on a carb controlled diet -a1c 7.1 04/20 -Would start metformin once patient out of acute CHF exacerbation and renal function permits #BPH-trial Flomax, check post void residual #Morbid obesity-evaluate for sleep apnea RTI nocturnal oximetry and O2 as needed #Prophylaxis-DVT cannot do SCDs, heparin until warfarin therapeutic, GI not indicated #Disposition-full code confirmed with patient, from home independent living. [employer]: Anti-Embolic stockings Kirk Reynoso MD Apr 26, 2017 13:19
--- NOTE | 2017-04-26 15:15 | PCM.PNNEPH ---
Subjective Date of Service Apr 26, 2017 Subjective The patient continues to have a slight increase in his creatinine which is probably due to prolonged effects of the diuretics in the face of significant volume depletion. He states he feels a bit better and denies any headache, chest pain, nausea, vomiting, or diarrhea. The last 24 hours his intake and output of 12/10/1985 in and 2625 out. This morning his lab showed a sodium of 136, potassium 3.4, chloride of 87, bicarbonate 36, BUN and creatinine were 29 and 2.14 respectively. His magnesium is 2.5 and his urinalysis showed a considerable number of white cells. Some bacteria noted no awaiting cultures. blood gas was obtained yesterday and his pH was 7.4 with a PCO2 of 60 and a bicarbonate of 37. She will look to some degree the erratic induced volume depletion and alkalosis is probably caused worsening of his CO2 retention. With continuing his cautious hydration and replacing potassium and the former chloride is up to treat this. Exam Vital Signs Vital Sign - Last Date Time Temp Pulse Resp B/P Pulse Ox O2 Delivery O2 Flow Rate FiO2 04/26/17 14:22 Supplement Oxygen 04/26/17 13:55 36.6 88 18 102/68 97 2.00 Intake and Output 04/25/17 04/25/17 04/26/17 Cumulative From/Thru 15:00 23:00 07:00 04/20/17 08:50 - 04/26/17 06:33 Intake Total 1239 ml 1671 ml 16175 ml Output Total 850 ml 850 ml 86031 ml Balance 389 ml 821 ml -6044 ml Intake Oral 520 ml 773 ml 8293 ml IV Total 719 ml 898 ml 1913 ml Output Urine Total 850 ml 850 ml 43666 ml # Voids 3 # Bowel Movements 1 Exam HEENT examination is remarkable for pale sclera. Neck supple without adenopathy , thyromegaly, or jugular venous distention. Lungs were clear to auscultation though somewhat diminished in both bases. Heart is regular and rhythmical with a soft systolic murmur. Choi was soft without any tenderness or rebound guarding masses or hepatosplenomegaly. She is not sure evidence of any clubbing , cyanosis, edema, or [id number] nails. Skin turgor remains diminished consistent with dehydration. Lab and Diagnostics Result Diagram: 04/22/17 0505 04/26/17 0340 X-Rays, CTs and MRIs CT ANGIO CHEST PULMONARY EMBOLISM : Jonatan Valdez M.D. on 04/20/2017 at 14:12 1. No evidence for central pulmonary embolism. Enlarged main pulmonary artery would be consistent with background pulmonary arterial hypertension. 2. Cardiomegaly as before, without acute pulmonary disease. 3. Solitary small right lower lobe nodule is unchanged since January 2016, reassuring for benign etiology. Dictated by: Jonatan Valdez M.D. on 04/20/2017 at 14:12 12-lead ECG Rate 74, QTC [address] segment depression, abnormal R-wave progression concurrently and personally reviewed by Angeles 04/20 . Atrial fibrillation . Ventricular premature complex . Nonspecific intraventricular conduction delay . Abnormal R-wave progression, early transition . Prolonged QT interval . When compared with ECG of 20-Apr-2017 9:08:57, . No significant change Cardiac Echo Impressions Echocardiogram Report: Néstor Gonsales on 01/30/2016 The left ventricle is mild-moderately dilated but measures somewhat smaller compared to the previous study. Left ventricular systolic function is moderately reduced with the ejection fraction estimated to be 35-40% with a significant dyssynchronous contraction pattern, consistent with a conduction abnormality but no focal wall motion abnormalities. Compared to the prior exam, left ventricular function is slightly improved. There is mild concentric left ventricular hypertrophy that is unchanged compared to the previous study. The right ventricle is moderately dilated and right ventricular systolic function is moderately reduced but grossly appears unchanged compared to the previous study. The right ventricular systolic pressure is estimated at 60 mmHg assuming a right atrial pressure of 15 mm Hg, and is likely moderately higher compared to the previous study. There is moderate biatrial enlargement. Both atria are unchanged in size since the prior echo exam. There is mild mitral regurgitation that is significantly improved compared to the previous study. There is no other significant valvular heart disease. The aortic arch is mildly enlarged but is unchanged compared to the previous study. The patient was in atrial fibrillation with heart rates between 62-88 bpm during the exam. Plan Impression Impression #1 dehydration secondary to overdiuresis #2 acute kidney injury secondary to #1+ contrast #3 chronic kidney disease stage IV number for diabetic nephropathy #5 hypertension with hypertensive heart disease and hypertensive nephrosclerosis, 6 obstructive sleep apnea #7 metabolic syndrome # 8 hypokalemia. Metabolic alkalosis Recommendation #1 the patient is still quite fluid depleted and we need to continue to cautiously continue his volume expansion and replace his electrolytes as needed. Arnoldo Oneal DO Apr 26, 2017 15:15
--- NOTE | 2017-04-26 16:42 | NUR ---
Pain/Refusals: Patient complain of low back and leg pain 5-6/10 on pain scale this shift. Oxycontin administered as scheduled and Percocet administered as needed. Patient states pain relieves to 3/10 after pain medication administration. Patient refused all BG checks/insulin today. Refused breakfast and dinner. Refused offer of bath and other hygiene care. Refusing turning, however will use trapeze to readjust as needed.
[2017-04-26] MEDS: Cefepime 2,000 mg/100 mL D5W Minibag Plus IV SCH ×2 (20:00)
[2017-04-27] VITALS (8 sets, daily range): BP systolic 101–134; BP diastolic 50–82; PULSE 70–99; RESP 14–20; O2SAT 84–99
[2017-04-27] MEDS: oxyCODONE-Acetamin 10-325 mg Tablet PO PRN ×3 (03:23→16:34)
[2017-04-27 06:03] LABS: BASOPHILS % (AUTO) 0.6 % (0-3); EOSINOPHILS % (AUTO) 4.2 % (0-5); MONOCYTES % (AUTO) 13.6 % (4-12); Mean Corpuscular Hemoglobin 25.3 pg (27.0-35.0); Mean Corpuscular Volume 83.4 fL (81-100); NEUTROPHILS % (AUTO) 65.1 % (40-74); Platelet Count 206 bil/L (150-400)
[2017-04-27 06:19] LABS: INR 2.99 ratio
--- NOTE | 2017-04-27 06:35 | NUR ---
Received pt assignment around 0420 Pt has been sleeping comfortably, no s/s acute distress, MP30: a-fib 70s per environmental monitoring technician. SPO2 high 90s on O 2L per nc. Compression wrap at LEs loosened due to pt c/o discomfort per previous RN report. VSS, afebrile. Continue monitoring.
[2017-04-27] MEDS: Insulin LISPRO 300 Unit/3 mL Inj SUBQ SCH ×4 (08:00→22:00)
[2017-04-27] MEDS: Cefepime 2,000 mg/100 mL D5W Minibag Plus IV SCH ×4 (08:29→20:44)
[2017-04-27] MEDS: oxyCODONE ER 10 mg ER12 Tablet PO SCH ×2 (08:33→20:44)
[2017-04-27] MEDS: Senna-Docusate 8.6-50 mg Tablet PO SCH ×2 (08:33→20:45)
--- NOTE | 2017-04-27 10:29 | PCM.PHAPRO ---
Progress Warfarin Management by Pharmacy: -Indication: afib, history of dvt -Home Dose: warfarin 7.5mg daily -Inr Goal: 2-3 -[id number] Score: 2 -Concurrent Anticoagulation: baby asa -Drug Interactions: none noted (baby asa) -Disease Interactions: CHF -Coagulation Trends: 1-Akbar 2-Akbar 3-Akbar 4-Akbar 5-Akbar 6-Akbar 7-Akbar 8-Akbar 1.54 1.68 1.73 2.02 2.56 2.62 2.82 2.99 0.14 0.05 0.29 0.54 0.06 0.2 0.17 7.5 7.5 mg 10MG X1 7.5 mg 5 7 6 5MG -Plan: creatinine clearance has improved. variable eating. will give warfarin 5mg this evening as inr is at the max end of normal Michelle Jackson [facility] Apr 27, 2017 10:29
--- NOTE | 2017-04-27 14:33 | PCM.PNNEPH ---
Subjective Date of Service Apr 27, 2017 Subjective The patient continues to improve. He is feeling stronger and denies any headache, cough, wheezing, nausea or vomiting. His blood pressure is good and intake and output last 24 hours show 3018 and 1400 out. His sodium is 134, potassium 3.6, chloride of 88, bicarbonate 34, BUN and creatinine were 27 and 1.7. Exam Vital Signs Vital Sign - Last Date Time Temp Pulse Resp B/P Pulse Ox O2 Delivery O2 Flow Rate FiO2 04/27/17 10:47 36.4 84 16 101/58 92 Room Air 04/27/17 00:30 2.00 Intake and Output 04/26/17 04/26/17 04/27/17 Cumulative From/Thru 15:00 23:00 07:00 04/20/17 08:50 - 04/27/17 06:30 Intake Total 747 ml 600 ml 1194 ml 51314 ml Output Total 550 ml 700 ml 15450 ml Balance 747 ml 50 ml 494 ml -4753 ml Intake Oral 600 ml 8893 ml IV Total 747 ml 1194 ml 3854 ml Output Urine Total 550 ml 700 ml 41537 ml # Voids 3 # Bowel Movements 1 Exam Supple without adenopathy thyromegaly or jugular venous distention. Lungs are clear to auscultation. Heart was regular and rhythmical with a soft systolic murmur. Abdomen is soft and pendulous but no tenderness rebound guarding masses or hepatosplenomegaly is noted. She is not showing evidence of any clubbing, cyanosis, or edema. Skin turgor is good. Lab and Diagnostics Result Diagram: 04/27/17 0505 04/27/17 0505 X-Rays, CTs and MRIs CT ANGIO CHEST PULMONARY EMBOLISM : Jonatan Valdez M.D. on 04/20/2017 at 14:12 1. No evidence for central pulmonary embolism. Enlarged main pulmonary artery would be consistent with background pulmonary arterial hypertension. 2. Cardiomegaly as before, without acute pulmonary disease. 3. Solitary small right lower lobe nodule is unchanged since January 2016, reassuring for benign etiology. Dictated by: Jonatan Valdez M.D. on 04/20/2017 at 14:12 12-lead ECG Rate 74, QTC [address] segment depression, abnormal R-wave progression concurrently and personally reviewed by Angeles 04/20 . Atrial fibrillation . Ventricular premature complex . Nonspecific intraventricular conduction delay . Abnormal R-wave progression, early transition . Prolonged QT interval . When compared with ECG of 20-Apr-2017 9:08:57, . No significant change Cardiac Echo Impressions Echocardiogram Report: Néstor Gonsales on 01/30/2016 The left ventricle is mild-moderately dilated but measures somewhat smaller compared to the previous study. Left ventricular systolic function is moderately reduced with the ejection fraction estimated to be 35-40% with a significant dyssynchronous contraction pattern, consistent with a conduction abnormality but no focal wall motion abnormalities. Compared to the prior exam, left ventricular function is slightly improved. There is mild concentric left ventricular hypertrophy that is unchanged compared to the previous study. The right ventricle is moderately dilated and right ventricular systolic function is moderately reduced but grossly appears unchanged compared to the previous study. The right ventricular systolic pressure is estimated at 60 mmHg assuming a right atrial pressure of 15 mm Hg, and is likely moderately higher compared to the previous study. There is moderate biatrial enlargement. Both atria are unchanged in size since the prior echo exam. There is mild mitral regurgitation that is significantly improved compared to the previous study. There is no other significant valvular heart disease. The aortic arch is mildly enlarged but is unchanged compared to the previous study. The patient was in atrial fibrillation with heart rates between 62-88 bpm during the exam. Plan Impression Impression #1 acute kidney injury secondary to volume depletion from over diuresis number to diabetic nephropathy #3 hypertension hypertensive heart disease and hypertensive nephrosclerosis. Recommendations #1 I feel the patient right now is anemic. We will go ahead and stop the IV fluids. Prior to discharge I will put him back on a diuretic regime. At this point I would recommend torsemide 20 mg twice a day however I would write 3 times a day so that if the patient is indicating some extra fluid he has a option of an extra dose. Arnoldo Oneal DO Apr 27, 2017 14:33
--- NOTE | 2017-04-27 15:18 | PCM.PNMED ---
Subjective Date of Service Apr 27, 2017 Subjective Denies any new issues/complaints Exam Vital Signs Vital Sign - Last Date Time Temp Pulse Resp B/P Pulse Ox O2 Delivery O2 Flow Rate FiO2 04/27/17 14:40 36.7 70 20 120/50 92 Room Air 04/27/17 00:30 2.00 Intake and Output 04/26/17 04/26/17 04/27/17 Cumulative From/Thru 15:00 23:00 07:00 04/20/17 08:50 - 04/27/17 06:30 Intake Total 747 ml 600 ml 1194 ml 54785 ml Output Total 550 ml 700 ml 72046 ml Balance 747 ml 50 ml 494 ml -4753 ml Intake Oral 600 ml 8893 ml IV Total 747 ml 1194 ml 3854 ml Output Urine Total 550 ml 700 ml 67547 ml # Voids 3 # Bowel Movements 1 General: Alert, Oriented X3, Cooperative, No Acute Distress Head: Normal Eyes: Scleral Anicteric Mouth: Mucous Membr Moist/[place] Neck: Supple Chest & Lungs: Chest Wall Normal, Clear to auscultation & percussion Cardiovascular: Regular Rate/Rhythm Abdomen: Non-tender, Non-distended, Normoactive bowel tones, Soft Extremities: Other (lower extremities both wrapped left is in a brace/boot, right is just wrapped) Neurological: Grossly Neurologically Intact, Normal Speech IVs and Medications Medications Reviewed: Medications were reviewed in detail Lab and Diagnostics Result Diagram: 04/27/17 0505 04/27/17 0505 X-Rays, CTs and MRIs CT ANGIO CHEST PULMONARY EMBOLISM : Jonatan Valdez M.D. on 04/20/2017 at 14:12 1. No evidence for central pulmonary embolism. Enlarged main pulmonary artery would be consistent with background pulmonary arterial hypertension. 2. Cardiomegaly as before, without acute pulmonary disease. 3. Solitary small right lower lobe nodule is unchanged since January 2016, reassuring for benign etiology. Dictated by: Jonatan Valdez M.D. on 04/20/2017 at 14:12 12-lead ECG Rate 74, QTC [address] segment depression, abnormal R-wave progression concurrently and personally reviewed by Angeles 04/20 . Atrial fibrillation . Ventricular premature complex . Nonspecific intraventricular conduction delay . Abnormal R-wave progression, early transition . Prolonged QT interval . When compared with ECG of 20-Apr-2017 9:08:57, . No significant change Cardiac Echo Impressions Echocardiogram Report: Néstor Gonsales on 01/30/2016 The left ventricle is mild-moderately dilated but measures somewhat smaller compared to the previous study. Left ventricular systolic function is moderately reduced with the ejection fraction estimated to be 35-40% with a significant dyssynchronous contraction pattern, consistent with a conduction abnormality but no focal wall motion abnormalities. Compared to the prior exam, left ventricular function is slightly improved. There is mild concentric left ventricular hypertrophy that is unchanged compared to the previous study. The right ventricle is moderately dilated and right ventricular systolic function is moderately reduced but grossly appears unchanged compared to the previous study. The right ventricular systolic pressure is estimated at 60 mmHg assuming a right atrial pressure of 15 mm Hg, and is likely moderately higher compared to the previous study. There is moderate biatrial enlargement. Both atria are unchanged in size since the prior echo exam. There is mild mitral regurgitation that is significantly improved compared to the previous study. There is no other significant valvular heart disease. The aortic arch is mildly enlarged but is unchanged compared to the previous study. The patient was in atrial fibrillation with heart rates between 62-88 bpm during the exam. Assessment & Plan 61-year-old male with history of systolic CHF presented with chest pains for 24 + hours # Acute chest pain, present on admission. Resolved. - Acute myocardial infarction ruled out with negative Trop - Negative stress test on 04/24 - Echo 04/21 showing: "Severely dilated left ventricle with ejection fraction estimated to be 50-55%." - Continue with supportive care. Nitroglycerin and IV Morphine as needed # Acute kidney injury on top of chronic kidney disease. Not present on admission. Improving. - RAYMOND likely partially due to overdiuresis initially when acute CHF was suspected as well as contrast from CTA - Appreciate nephrology consult. Will followup with recs - Patient was suspected of being intervascularly dry. Renal function now improved after gentle IVF - Resume diuretic cautiously and per nephrology recs # Suspected acute on chronic systolic congestive heart failure. Present on admission. Clinically resolved. - Continue daily I/os, weights - Trial Bumex 2 mg IV BID k+/mag , minimal diuresis 04/23 failed and discontinued for above-mentioned reasons 04/26 - Diuretic resumption as noted above and per nephrology # Chronic A-fib. Rate controlled - Warfarin per pharmacy - Followup daily INR # History of CAD - Continue with Atorvastatin started 04/24, - Beta destinee - BLAZE/ARB if/when BP tolerates and OK by nephrology # Chronic rheumatoid arthritis - Continue Prednisone prn # NIDDM - Continue with sliding scale insulin - HgA1C 7.1 - Continue to hold Metformin until renal function permits # BPH - Continue trial Flomax - check post void residual # Morbid obesity - Consider outpatient evaluation for sleep apnea Dispo: 1-2 days [employer]: Anti-Embolic stockings Jacob Hudson Apr 27, 2017 15:18 #BPH-trial Flomax, check post void residual #Morbid obesity-evaluate for sleep apnea RTI nocturnal oximetry and O2 as needed #Prophylaxis-DVT cannot do SCDs, heparin until warfarin therapeutic, GI not indicated #Disposition-full code confirmed with patient, from home independent living. [employer]: Anti-Embolic stockings Jacob Hudson Apr 27, 2017 15:18
--- NOTE | 2017-04-27 17:00 | NUR ---
Pain/Diabetic management Patient complains of low back and leg pain 5/10 on pain scale through out shift. Scheduled Oxycontin and RPN Percocet administered as ordered. Pain relieved to 2/10 after pain medication administration, per pt tolerable level. Patient refused all BG checks/insulin today, sts "I'm tired of being poked, I don't use insulin at home so I don't need to use it here". Pt encouraged to contact staff for additional needs, will continue to monitor.
[2017-04-28 02:02] VITALS: BP 119/68; PULSE 86; RESP 18; O2SAT 96
[2017-04-28] MEDS: oxyCODONE-Acetamin 10-325 mg Tablet PO PRN ×2 (02:43→09:02)
--- NOTE | 2017-04-28 05:09 | NUR ---
Pain/Refused Blood Sugar checks Patient rated back pain 8/10. Pain medication given to reduce pain to 2/10. Patient refused to have blood sugar checked.
[2017-04-28 05:28] VITALS: PULSE 78
[2017-04-28 05:51] VITALS: BP 107/64; PULSE 71; RESP 18; O2SAT 97
[2017-04-28 06:26] LABS: INR 3.18 ratio
[2017-04-28 08:00] VITALS: PULSE 77
[2017-04-28] MEDS: Cefepime 2,000 mg/100 mL D5W Minibag Plus IV SCH ×2 (08:57)
[2017-04-28] MEDS: Senna-Docusate 8.6-50 mg Tablet PO SCH (08:59)
[2017-04-28] MEDS: oxyCODONE ER 10 mg ER12 Tablet PO SCH (09:00)
[2017-04-28] MEDS: Insulin LISPRO 300 Unit/3 mL Inj SUBQ SCH ×2 (09:07→11:51)
[2017-04-28 10:15] VITALS: BP 147/85; O2SAT 97
--- NOTE | 2017-04-28 11:13 | PCM.PHAPRO ---
Progress WARFARIN DOSING PER PHARMACY [facility] KK GF RTM RTM DFF Date 1-Akbar 2-Akbar 3-Akbar 4-Akbar 5-Akbar 6-Akbar 7-Akbar 8-Akbar 9-Akbar INR 1.54 1.68 1.73 2.02 2.56 2.62 2.82 2.99 3.18 INR change 0.14 0.05 0.29 0.54 0.06 0.2 0.17 0.19 Warf Dose 7.5 7.5 mg 10MG X1 7.5 mg 5 7 6 5MG 2 A/P -Supratherapeutic INR. No s/s of bleeding. Dose adjusted yesterday with uptrend. -Will decrease further to warfarin 2mg tonight. Will continue to monitor. Ed Wyman, PharmD Ed Wyman Apr 28, 2017 11:13
[2017-04-28] MEDS ORDERED: TAMS0.4C98 PO (12:01)
[2017-04-28] MEDS ORDERED: ATOR40TA69 PO (12:01)
[2017-04-28] MEDS ORDERED: SPIR25TA PO (12:05)
--- NOTE | 2017-04-28 12:12 | PCM.DIMED ---
Discharge Instructions Date of Service Apr 28, 2017 Dates of Hospitalization Apr 20, 2017 at 12:05 Discharge Diagnosis Discharge Diagnosis # Acute chest pain, present on admission. Resolved. - Acute myocardial infarction ruled out - Negative stress test on 04/24 - Echo 04/21 showing: "Severely dilated left ventricle with ejection fraction estimated to be 50-55%." # Acute kidney injury on top of chronic kidney disease. Not present on admission. Resolved - Likely partially due to over diuresis initially when acute CHF was suspected as well as contrast from CTA # Suspected acute on chronic systolic congestive heart failure. Present on admission. Clinically resolved. # Chronic A-fib. Rate controlled # Chronic anticoagulation with Warfarin - INR 3.18 on 04/28/17 # History of CAD # Chronic rheumatoid arthritis # Diabetes mellitus, Type II - HgA1C 7.1 # BPH # Morbid obesity # Elevated Uric acid. - Will need further followup with primary care provider for management Medication Instructions Additional med instructions Hold off on taking Warfarin (Coumadin) tonight and resume taking on 04/29/17 Diet Discharge Diet: Low fat, Low Sodium, Heart Healthy, Diabetic Activity Discharge Activity: Home Health Phyical Therapy Call your provider Call your provider for: Fever or Chills, Shortness of breath, Bleeding, Chest pain, Excessive diarrhea Patient Instructions Patient Instructions Seek immediate medical attention if any new or worsening signs or symptoms occur. Follow-up plan 1. Followup with primary care provider in 5-7 days 2. Followup with nephrology (Dr. Oneal) in 4 weeks. Call to setup appointment [address] [id number] Follow-up Provider: Odilon Moore DO Provider: Arnoldo Oneal Masoud Apr 28, 2017 12:12
[2017-04-28] MEDS ORDERED: CEFD300C3 PO (12:43)
[2017-04-28 12:54] VITALS: BP 148/89; PULSE 65; RESP 18; O2SAT 97
--- NOTE | 2017-04-28 13:37 | PCM.PNNEPH ---
Subjective Date of Service Apr 28, 2017 Subjective Patient is a 61yom with MHx significant for morbid obesity, DM II, CHF, and CKD initially presented with SOB and CP, admitted for CHF exacerbation, complicated by RAYMOND. Nephrology has been asked to evaluate. D/C 1/2 NS yesterday, patient denies any new complaints. No n/v/d or chills/ fever, no cough, or wheezes. Does report Left shoulder pain, though also endorses use of Left arm to pull oneself for in the bed. Vital sign stable. I/O 2.1/1.9L, Cr 1.56, continues to improve. Exam Vital Signs Vital Sign - Last Date Time Temp Pulse Resp B/P Pulse Ox O2 Delivery O2 Flow Rate FiO2 04/28/17 12:54 36.8 65 18 148/89 97 Room Air 04/27/17 00:30 2.00 Intake and Output 04/27/17 04/27/17 04/28/17 Cumulative From/Thru 15:00 23:00 07:00 04/20/17 08:50 - 04/28/17 06:27 Intake Total 1000 ml 800 ml 85683 ml Output Total 1200 ml 1200 ml 67847 ml Balance -200 ml -400 ml -5353 ml Intake Oral 1000 ml 800 ml 58645 ml IV Total 3854 ml Output Urine Total 1200 ml 1200 ml 67025 ml # Voids 3 # Bowel Movements 1 Exam Gen: Lying comfortably at 30degree head tilt. Morbid obese HEENT: PERRLA, Anicteric sclerae, moist conjunctivae, and no lid lag. Neck: supple, no JVD Cardio: Regular rate and rhythm with no murmurs, rubs, or gallops appreciated Pulm: b/l air sound, no crackles, wheezes, or rhonchi. Normal respiratory effort with no use of accessory muscles. Abd: positive bowel tone. Soft, nontender, nondistended. Extremities: No clubbing or cyanosis. significant lower leg moderate/severe pitting edema to the knee. Skin: Normal temperature, turgor, and texture; no rash, ulcers, or subcutaneous nodules appreciated. Neuro: Cranial nerves grossly intact. moving equally on all four limbs. Psyc: Normal mood and affect. AoX3 Lab and Diagnostics Result Diagram: 04/27/17 0505 04/28/17 0515 X-Rays, CTs and MRIs CT ANGIO CHEST PULMONARY EMBOLISM : Jonatan Valdez M.D. on 04/20/2017 at 14:12 1. No evidence for central pulmonary embolism. Enlarged main pulmonary artery would be consistent with background pulmonary arterial hypertension. 2. Cardiomegaly as before, without acute pulmonary disease. 3. Solitary small right lower lobe nodule is unchanged since January 2016, reassuring for benign etiology. Dictated by: Jonatan Valdez M.D. on 04/20/2017 at 14:12 12-lead ECG Rate 74, QTC [address] segment depression, abnormal R-wave progression concurrently and personally reviewed by Angeles 04/20 . Atrial fibrillation . Ventricular premature complex . Nonspecific intraventricular conduction delay . Abnormal R-wave progression, early transition . Prolonged QT interval . When compared with ECG of 20-Apr-2017 9:08:57, . No significant change Cardiac Echo Impressions Echocardiogram Report: Néstor Gonsales on 01/30/2016 The left ventricle is mild-moderately dilated but measures somewhat smaller compared to the previous study. Left ventricular systolic function is moderately reduced with the ejection fraction estimated to be 35-40% with a significant dyssynchronous contraction pattern, consistent with a conduction abnormality but no focal wall motion abnormalities. Compared to the prior exam, left ventricular function is slightly improved. There is mild concentric left ventricular hypertrophy that is unchanged compared to the previous study. The right ventricle is moderately dilated and right ventricular systolic function is moderately reduced but grossly appears unchanged compared to the previous study. The right ventricular systolic pressure is estimated at 60 mmHg assuming a right atrial pressure of 15 mm Hg, and is likely moderately higher compared to the previous study. There is moderate biatrial enlargement. Both atria are unchanged in size since the prior echo exam. There is mild mitral regurgitation that is significantly improved compared to the previous study. There is no other significant valvular heart disease. The aortic arch is mildly enlarged but is unchanged compared to the previous study. The patient was in atrial fibrillation with heart rates between 62-88 bpm during the exam. Plan Impression Problem List # Acute kidney injury secondary to volume depletion from over diuresis and use of IV contrast in the setting CKD staged 3 # Diabetic nephropathy # Hypertension hypertensive heart disease and hypertensive nephrosclerosis. # UTI # Normocytic anemia with high RDW, likely iron deficient Plan: # D/c home with torsemide 20 mg twice and TID should he feels fluid overload # Cont abx 5-7day for UTI. # F/u with nephrology in 1mo. Von Ramos DO Apr 28, 2017 13:37
--- NOTE | 2017-04-28 13:46 | NUR ---
PER MD order arranged BLS transport for 1430 for patient to return home this is being done via [facility]. PCS from complete Updated EDITOR [employer]SP[employer]ER
--- NOTE | 2017-04-28 14:01 | NUR ---
Social Work: Discharge Data: Pt is on day 8 of hospitalization. EMR reviewed. D/C orders are in. UR specialist set up BLS transportation for 2:30pm today. [employer] informed RN and pt. Pt states he has a caregiver meeting him at home at 3pm. [employer] called [facility]ery CEDE[facility]O, notified them pt is discharging. No further d/c planning needs at this time. [employer] will continue to follow if needs arise. Assessment: Pt with IRENE. Plan: Pt will d/c home via BLS at 2:30pm today with resume Nery CEDEÑO and IRENE. No further d/c planning needs at this time. [employer] will continue to follow if needs arise. CATARINO Fitzpatrick
--- NOTE | 2017-04-28 14:45 | PCM.DC.MED ---
Discharge Summary Date of Service Apr 28, 2017 Dates of Hospitalization Date of Hospital Admission Apr 20, 2017 at 12:05 Date of Discharge: Apr 28, 2017 Providers: Admitting Physician: Kirk Reynoso MD Primary Care Physician: Odilon Moore DO Attending Physician: Kirk Reynoso MD Diagnosis at Time of Discharge Diagnosis at Time of Discharge # Acute chest pain, present on admission. Resolved. - Acute myocardial infarction ruled out - Negative stress test on 04/24 - Echo 04/21 showing: "Severely dilated left ventricle with ejection fraction estimated to be 50-55%." # Acute kidney injury on top of chronic kidney disease. Not present on admission. Resolved - Likely partially due to over diuresis initially when acute CHF was suspected as well as contrast from CTA # Suspected acute on chronic systolic congestive heart failure. Present on admission. Clinically resolved. # Chronic A-fib. Rate controlled # Chronic anticoagulation with Warfarin - INR 3.18 on 04/28/17 # History of CAD # Chronic rheumatoid arthritis # Diabetes mellitus, Type II - HgA1C 7.1 # BPH # Morbid obesity # Elevated Uric acid. - Will need further followup with primary care provider for management # Acute E. Coli urinary tract infection. Likely present on admission. Procedures XRay, CTs & MRIs Date of Service: 04/20/17 1120 PROCEDURE: CT ANGIO CHEST PULMONARY EMBOLISM ([id number]) IMPRESSION: 1. No evidence for central pulmonary embolism. Enlarged main pulmonary artery would be consistent with background pulmonary arterial hypertension. 2. Cardiomegaly as before, without acute pulmonary disease. 3. Solitary small right lower lobe nodule is unchanged since January 2016, reassuring for benign etiology. Dictated by: Jonatan Valdez M.D. on 04/20/2017 at 14:12 Approved by: Jonatan Valdez M.D. on 04/20/2017 at 14:20 Cardiac Echo Impression Date of Service: 04/21/17 4227 Echocardiogram Report Interpretation Summary Technically difficult study and suboptimal images were obtained. The patient was in atrial fibrillation with heart rates between 65-90 bpm during the exam. Severely dilated left ventricle with ejection fraction estimated to be 50- 55%. Wall motion is not well visualized. Suboptimal doppler study. Comparison is made with the echocardiogram of 01/30/2016, the images quality has worsen as his body size has increased. LV systolic function seems to improve. Electronically signed by: Giuliana Martinez on Reading Physician:04/21/2017 03:53 PM Other Diagnostics Date of Service: 04/24/17 0800 PROCEDURE: 1 DAY PHARMACOLOGICAL STRESS TEST Rest and pharmacological stress myocardial perfusion SPECT; gated images not acquired. IMPRESSION: 1. Abnormal myocardial perfusion images with a small fixed perfusion defect in the inferior apex consistent with sequela of prior infarct. Fixed perfusion deficit throughout the inferior wall may reflect soft tissue attenuation artifact or sequela of prior infarct, with evaluation limited in the absence of prone imaging. 2. Left ventricular ejection fraction and wall motion unable to be evaluated due to irregular heart rate. 3. No diagnostic EKG changes of ischemia following pharmacologic stress. PQRS ATTESTATIONS: Measure 322 - Is this imaging test primarily performed on a low-risk surgery patient for preoperative evaluation within 30 days preceding their low-risk non- cardiac surgery? Low-risk surgery is defined as cardiac or myocardial infarction less than 1%, including (but not limited to) endoscopic procedures, superficial procedures, cataract surgery, and excisional breast surgery: Answer : No Measure 323 - Is this imaging test performed primarily for the monitoring of an asymptomatic patient who had percutaneous coronary intervention on the visit date or within 2 years of the visit date? Answer: No Measure 324 - Is this imaging test performed primarily for the initial detection and risk assessment on an asymptomatic, low coronary heart disease patient? Low CHD risk definition = clinicians should consider the maximum number of available patient factors used to estimate risk based on Slater ( ATP III criteria), typically age, gender, diabetes, smoking status, and use of blood pressure medication, and integrate age appropriate estimates for missing elements, such as LDL or standard blood pressure. Answer: No Dictated by: Nils Drew M.D. on 04/24/2017 at 15:02 Approved by: Nils Drew M.D. on 04/24/2017 at 15:08 Date of Service: 04/25/17 0846 PROCEDURE: US RENAL SONOGRAM IMPRESSION: 1. Suboptimal exam secondary to patient's body habitus demonstrating incomplete visualization of the right kidney with portions of the right kidney demonstrating increased renal cortical echogenicity suggesting medical renal disease. 2. Increased renal cortical echogenicity involving the left kidney also present with renal cortical thinning also compatible with medical renal disease. No obstructive uropathy is seen. 3. Right kidney cyst. 4. Gallbladder sludge. Dictated by: Girish Bunch [facility] Interpreted: Naya Orr MD on 04/25/2017 at 10:42 Transcribed by: SUMAYA on 04/25/2017 at 10:51 Approved by: Naya Orr M.D. on 04/26/2017 at 12:05 Brief History As noted in H&P by Dr. Reynoso: 61-year-old male with history of systolic CHF presents with chest pains for the last 24+ hours. His EF was 30-40% January 2016, reports that he has been taking furosemide 80 mg twice a day and has not been P in her losing weight. He cannot tell if his legs are swollen because they are wrapped for wound care in [employer] boots. Given his general girth he cannot tell whether he is more swollen than not he always wears sweat pants but he has noted that his weight is gone up. He is able to recount to me that last time she had chest pain he had " fluid around his heart "got a lot of diuretics and he got better. He also recounts that he was started on some other medications and his blood pressure dropped. He also had some issues with his kidneys. He denies fevers, chills, cough. Hospital Course # Acute chest pain, present on admission. Resolved. - Acute myocardial infarction ruled out with negative Trop - Negative stress test on 04/24 - Echo 04/21 showing: "Severely dilated left ventricle with ejection fraction estimated to be 50-55%." # Acute kidney injury on top of chronic kidney disease. Not present on admission. Improving. - RAYMOND likely partially due to overdiuresis initially when acute CHF was suspected as well as contrast from CTA - Appreciate nephrology consult. Will followup with recs - Patient was suspected of being intervascularly dry. Renal function now improved after gentle IVF - Resume diuretic cautiously and per nephrology recs # Suspected acute on chronic systolic congestive heart failure. Present on admission. Clinically resolved. - Diuretic resumption with Spironolactone as noted above and per nephrology # Chronic A-fib. Rate controlled - Warfarin per pharmacy was continued during this hospital - INR therapeutic by day of discharge # History of CAD - Continue with Atorvastatin started 04/24, - Beta destinee - BLAZE/ARB if/when BP tolerates and OK by nephrology # Chronic rheumatoid arthritis - Continue Prednisone prn # NIDDM - HgA1C 7.1 - Continue to hold Metformin until renal function permits # BPH - Continue trial Flomax started during this hospital # Morbid obesity - Consider outpatient evaluation for sleep apnea # Acute E. Coli urinary tract infection. Likely present on admission. - Empiric Cefepime started on 04/26 due to prior history of pseudomonas. Will be discharged home on Cefdinir given culture result Exam Vital Signs (Last) Date Time Temp Pulse Resp B/P Pulse Ox O2 Delivery O2 Flow Rate FiO2 04/28/17 12:54 36.8 65 18 148/89 97 Room Air 04/27/17 00:30 2.00 Exam General: Alert, Oriented X3, Cooperative, No Acute Distress Head: Normal Eyes: Scleral Anicteric Mouth: Mucous Membr Moist/[place] Neck: Supple Chest & Lungs: Chest Wall Normal, Clear to auscultation bilt Cardiovascular: Regular Rate/Rhythm Abdomen: Non-tender, Non-distended, Normoactive bowel tones, Soft Neurological: Grossly Neurologically Intact, Normal Speech Test 04/20/17 09:25 04/20/17 11:04 04/20/17 12:42 04/20/17 13:08 Hemoglobin A1c 7.3% (4.8-5.6) Total Bilirubin 0.7mg/dL (0.0-1.2) Aspartate Amino Transf (AST/SGOT) 29U/L (0-50) Alanine Aminotransferase (ALT/SGPT) 16U/L (0-44) Alkaline Phosphatase 83U/L (25-160) Total Creatine Kinase 42U/L (21-232) Creatine Kinase MB < 1.0ng/mL (0.0-10.4) Creatine Kinase MB % % (0.0-5.0) Pro-B-Type Natriuretic Peptide 469.1pg/mL (0-210) Total Protein 7.5g/dL (6.4-8.4) Albumin 3.3g/dL (3.4-5.0) Hold [place] Top Tube Received (Received) D-Dimer 0.71mg/L FEU (<0.50) Troponin T < 0.010ug/L (0.0-0.011) Hold Urine Received (Received) Test 04/20/17 18:18 04/25/17 05:30 04/25/17 13:30 04/26/17 04:59 Hold [place] Top Tube Received (Received) Uric Acid 14.3mg/dL (2.6-7.2) Triglycerides Level 187mg/dL (0-149) Cholesterol Level 208mg/dL (100-199) LDL Cholesterol, Calculated 142.600mg/dL (0-99) VLDL Cholesterol 37.400mg/dL HDL Cholesterol 28mg/dL (>39) Cholesterol/HDL Ratio 7.43 (0.0-4.4) Thyroid Stimulating Hormone (TSH) 1.010uIU/mL (0.450-4.500) Free Thyroxine 1.30ng/dL (0.82-1.77) Prostate Specific Antigen <0.1ng/mL (0.0-4.0) Free Prostate Specific Antigen < 0.02ng/mL (N/A) Percent Free Prostate Specific Ag % (.) Urine Color Yellow (YELLOW) Urine Appearance Cloudy (CLEAR,HAZY) Urine pH 6.0 (5.0-8.0) Urine Specific [place] 1.010 (1.003-1.035) Urine Protein Tracemg/dL (NEG,TRACE) Urine Glucose (UA) Negativemg/dL (NEGATIVE) Urine Ketones Negativemg/dL (NEGATIVE) Urine Occult Blood Large (NEGATIVE) Urine Nitrite Negative (NEGATIVE) Urine Bilirubin Negative (NEGATIVE) Urine Urobilinogen Normalmg/dL (NORMAL) Urine Leukocyte Esterase Moderate (NEGATIVE) Urine RBC 11-50/hpf (0-2) Urine WBC >50/hpf (0-5) Urine Epithelial Cells Few/hpf (NONE-MOD) Urine Crystals None seen (NONE SEEN) Urine Bacteria Many/hpf (NONE-FEW) Urine Hyaline Casts None/lpf (NONE) Urine Granular Casts None seen (NONE SEEN) Urine Waxy Casts None seen (NONE SEEN) Urine Red Blood Cell Casts None seen (NONE SEEN) Urine White Blood Cell Casts None seen (NONE SEEN) Urine Mucus None seen (None Seen) Urine Trichomonas None seen (NONE SEEN) Urine Yeast None (NONE SEEN) Urinalysis Comment None Urine Culture Reflexed Indicated Urine Random Creatinine 139mg/dL (22-328) Urine Random Total Protein 26mg/dL (0-15) Urine Protein/Creatinine Ratio 0.19 (0-200) Urine Total Protein 24.6mg/dL (Not Estab.) Urine Albumin 40.6% (.) Urine Unlre-5-Luzabmjs 2.6% (.) Urine Fyjdk-9-Glbnrajwy 11.0% (.) Urine Beta Globulin 24.9% (.) Urine Gamma Globulin 20.9% (.) Urine Protein Electrophoresis Note Comment (.) Urine Monoclonal Protein % Not observed% (Not Observed) Test 04/27/17 05:05 04/28/17 05:15 White Blood Count 5.4th/mm3 (3.8-10.1) Red Blood Count 4.58mil/mm3 (4.40-5.80) Hemoglobin 11.6g/dL (13.8-17.2) Hematocrit 38.2% (41.0-50.0) Mean Corpuscular Volume 83.4fL (81-100) Mean Corpuscular Hemoglobin 25.3pg (27.0-35.0) Mean Corpuscular Hemoglobin Concent 30.4% (32.0-37.0) Red Cell Distribution Width 17.5% (12.3-15.4) Platelet Count 206bil/L (150-400) Neutrophils (%) (Auto) 65.1% (40-74) Lymphocytes (%) (Auto) 15.8% (14-46) Monocytes (%) (Auto) 13.6% (4-12) Eosinophils (%) (Auto) 4.2% (0-5) Basophils (%) (Auto) 0.6% (0-3) Prothrombin Time 34.8sec (8.1-12.5) Prothromb Time International Ratio 3.18ratio Sodium Level 136mEq/L (134-144) Potassium Level 3.7mEq/L (3.5-5.2) Chloride Level 91mEq/L (97-108) Carbon Dioxide Level 31mmol/L (18-29) Blood Urea Nitrogen 26mg/dL (8-27) Creatinine 1.56mg/dL (0.76-1.27) Estimat Glomerular Filtration Rate 48mL/min (>59) Glucose Level 168mg/dL (60-99) Calcium Level 8.9mg/dL (8.5-10.1) Magnesium Level 2.5mg/dL (1.6-2.6) Discharge Medications Discharge Medications Aspirin Chew (Aspirin Chew) 81 Mg Chew 81 MG PO DAILY Prescribed by: EMERITA CORCORAN MD Atorvastatin Calcium (Atorvastatin Calcium) 40 Mg Tablet 40 MG PO HS Prescribed by: EMERITA CORCORAN MD Cefdinir (Cefdinir) 300 Mg Capsule 300 MG PO BID Prescribed by: EMERITA CORCORAN MD Cholecalciferol (Vitamin D3) (Vitamin D3) 2,000 Unit Capsule 2,000 UNIT PO DAILY (Reported) Ferrous Sulfate (Ferrous Sulfate) 325 Mg Tablet.dr 325 MG PO BID (Reported) Magnesium (Magnesium) 30 Mg Tablet 30 MG PO DAILY (Reported) Multivits-Min/FA/Lycopene/Lut (Centrum Silver Tablet) 1 Each Tablet 1 EACH PO DAILY (Reported) Oxymorphone (Oxymorphone) 10 Mg Tablet 10 MG PO BID (Reported) Spironolactone (Aldactone) 25 Mg Tablet 12.5 MG PO DAILY Prescribed by: EMERITA CORCORAN MD Tamsulosin (Flomax) 0.4 Mg Capsule 0.4 MG PO HS Prescribed by: EMERITA CORCORAN MD Warfarin Sodium (Warfarin Sodium) 10 Mg Tablet 7.5 MG PO DAILY (Reported) As needed Nitroglycerin SL (Nitroglycerin SL) 0.4 Mg Tab.subl 0.4 MG SL Q5MIN PRN PRN For Chest Pain (Reported) Ondansetron ODT (Zofran ODT) 4 Mg Tablet 4 MG PO Q4H PRN PRN For Nausea Prescribed by: FLAKITO BARON Prednisone (PredniSONE) 5 Mg Tab 5-10 MG PO DAILY PRN PRN RA flare up (Reported ) oxyCODONE-Acetaminophen 10-325 mg (oxyCODONE-Acetaminophen 10-325 mg) 1 Each Tablet 2 TABLET PO Q6H PRN PRN For Pain (Reported) Additional med instructions Hold off on taking Warfarin (Coumadin) tonight and resume taking on 04/29/17 Followup Plan Disposition: Home with resume home health Follow-up plan 1. Followup with primary care provider in 5-7 days 2. Followup with nephrology (Dr. Oneal) in 4 weeks. Call to setup appointment [address] [id number] Discharge Diet: Low fat, Low Sodium, Heart Healthy, Diabetic Discharge Activity: Home Health Phyical Therapy Patient Instructions Seek immediate medical attention if any new or worsening signs or symptoms occur. Follow-up Provider: Odilon Moore DO Provider: Arnoldo Oneal DO Time spent 40 min copies to: Arnoldo Oneal DO; Odilon Moore Masoud Apr 28, 2017 14:44
--- NOTE | 2017-04-28 15:12 | NUR ---
Discharge Pt d/c via stretcher with BLS at 1500. Discharge info discussed with pt, pt denied having questions. Rx provided, including new, oral abx. Pt denied pain. VSS. All personal belongings left with pt.
== END 2017-04-28 15:07 | disposition home health service (06) | DRG 292 ==
LOC: SED 08:43 → EDBD 08:43 → MPC 12:05 → OBSVTOIN 12:05 → MPC 17:24
PROVIDERS: ADMIT Hospitalist; ATTEND Hospitalist
DX: I50.23 Acute on chronic systolic (congestive) heart failure (principal); I13.0 Hypertensive heart and chronic kidney disease with heart failure and stage 1 through stage 4 chronic kidney disease, or unspecified chronic kidney disease; E87.3 Alkalosis; N17.9 Acute kidney failure, unspecified; E86.0 Dehydration; E11.22 Type 2 diabetes mellitus with diabetic chronic kidney disease; N18.3 Chronic kidney disease, stage 3 (moderate); E11.42 Type 2 diabetes mellitus with diabetic polyneuropathy; E88.81 Metabolic syndrome and other insulin resistance; I48.91 Unspecified atrial fibrillation; N39.0 Urinary tract infection, site not specified; Z68.42 Body mass index [BMI] 45.0-49.9, adult; Z79.01 Long term (current) use of anticoagulants; M06.9 Rheumatoid arthritis, unspecified; Z79.52 Long term (current) use of systemic steroids; N40.0 Benign prostatic hyperplasia without lower urinary tract symptoms; E66.01 Morbid (severe) obesity due to excess calories; Z86.718 Personal history of other venous thrombosis and embolism; G47.33 Obstructive sleep apnea (adult) (pediatric); N14.1 Nephropathy induced by other drugs, medicaments and biological substances; E87.6 Hypokalemia; R07.9 Chest pain, unspecified; I25.10 Atherosclerotic heart disease of native coronary artery without angina pectoris; B96.20 Unspecified Escherichia coli [E. coli] as the cause of diseases classified elsewhere

== ENCOUNTER 2017-07-04 01:18 | Inpatient (IN) | payer MEDICAID ==
[2017-07-04] VITALS (11 sets, daily range): BP systolic 108–169; BP diastolic 57–90; PULSE 77–99; RESP 18–22; O2SAT 92–100
[~2017-07-04] VITALS: Ht 210.8 cm; Wt 217.8 kg
[~2017-07-04 01:18] MED LIST changes: +ATOR40TA69 PO; +CEFD300C3 PO; -POTA20TA16 PO; +SPIR25TA PO; +TAMS0.4C98 PO
--- NOTE | 2017-07-04 01:28 | ED.REPORT ---
HPI-Abd Pain M 40 and Over Date of Service Jul 04, 2017 ED Provider: oRme Menjivar DO Pt is a morbidly obese 61 year old male with a history of type II Dm, chronic right lower extremity DVT, A-fib, and CHF who presents to the ED via EMS complaining of abdominal pain onset 3 years ago. He c/o associated severe nausea , vomiting, dysuria, weight loss, and constipation. He denies any other symptoms. Nursing Notes Stated Complaint: ABDOMINAL PAIN Chief Complaint: Male Abdominal Pain Nursing Notes Reviewed: Yes Allergies: Coded Allergies: Penicillins (Verified Allergy, Unknown, Unknown, 04/20/17) Scheduled Aspirin Chew (Aspirin Chew) 81 Mg Chew 81 MG PO DAILY Atorvastatin Calcium (Atorvastatin Calcium) 40 Mg Tablet 40 MG PO HS Cefdinir (Cefdinir) 300 Mg Capsule 300 MG PO BID Cholecalciferol (Vitamin D3) (Vitamin D3) 2,000 Unit Capsule 2,000 UNIT PO DAILY Ferrous Sulfate (Ferrous Sulfate) 325 Mg Tablet.dr 325 MG PO BID Magnesium (Magnesium) 30 Mg Tablet 30 MG PO DAILY Multivits-Min/FA/Lycopene/Lut (Centrum Silver Tablet) 1 Each Tablet 1 EACH PO DAILY Oxymorphone (Oxymorphone) 10 Mg Tablet 10 MG PO BID Tamsulosin (Flomax) 0.4 Mg Capsule 0.4 MG PO HS Warfarin Sodium (Warfarin Sodium) 10 Mg Tablet 7.5 MG PO DAILY Scheduled PRN Nitroglycerin SL (Nitroglycerin SL) 0.4 Mg Tab.subl 0.4 MG SL Q5MIN PRN PRN For Chest Pain Ondansetron ODT (Zofran ODT) 4 Mg Tablet 4 MG PO Q4H PRN PRN For Nausea Prednisone (PredniSONE) 5 Mg Tab 5-10 MG PO DAILY PRN PRN RA flare up oxyCODONE-Acetaminophen 10-325 mg (oxyCODONE-Acetaminophen 10-325 mg) 1 Each Tablet 2 TABLET PO Q6H PRN PRN For Pain General Time Seen by MD: 01:27 Chief Complaint Abdominal pain Hx Obtained From: Patient Arrived By: Wheelchair Sudden in Onset?: No Onset Occurred: More than a week ago... (3 years) Symptom Duration: Since onset Location: : Diffuse Quality: Painful Radiation: : Does not radiate Severity: Current: Moderate Severity: Maximum: Moderate Recent Healthcare: Recent doctor visit Similar Sx Previous: No Past Medical History Past Medical History Morbid obesity (BMI 45) Chronic right lower extremity DVT Stage III chronic kidney disease with baseline creatinine of around 1.5 Rheumatoid arthritis Atrial tachycardia with variable rate Cardiomyopathy (LVEF 30-35%) Peripheral neuropathy Charcot joint of left leg History of BPH Reports: Congestive heart failure, Diabetes mellitus (type II, diet managed) Reports: Atrial fibrillation, Atrial flutter Past Surgical History hiatal hernia repair left arm fracture repair carpal tunnel kidney stone removal Cardiac ablation Family History noncontributory Smoking History Never Smoker Social History Drug Use: Denies drug use Other Social History: Lives alone, Local resident Ambulatory Status Wheelchair Review of Systems Constitutional: Denies: Fever GI: Reports: Abdominal pain, Constipation, Nausea, Vomiting Male: Reports Dysuria Complete sys rev & neg: except as marked. Endocrine: Reports: Weight loss Physical Exam Initial Vital Signs Vital Signs (First) Date Time Temp Pulse Resp B/P Pulse Ox O2 Delivery O2 Flow Rate FiO2 07/04/17 01:24 97 19 122/57 92 Room Air Initial VS: Reviewed Head / Eyes: Atraumatic, Normocephalic Neck: Supple, Full range of motion Extremities: Vascular intact, Neuro intact Skin: Warm, Dry, No cyanosis Neurologic: Alert, Oriented, Nonfocal Psychiatric: Mood/affect normal, Behavior normal General/Constitutional: Awake, Alert, No acute distress Appearance / Presentation: Positive: Obese, morbidly Respiratory / Chest: Atraumatic, Breath sounds NL, Breath sounds = bilat Cardiovascular: Heart rate NL, Heart sounds NL Heart Rate / Rhythm: Positive: Irregular rhythm Abdomen: Atraumatic, Soft Tenderness/Guarding/Rebound: Positive: Tender LUQ... (Moderate) Back: Atraumatic UPPER EXTREMITIES: Pseudoarthrosis of right extremity. LOWER EXTREMITY: Large swelling legs with bright red erythema on the posterior aspect of the left leg that is consistent with cellulitis Interpretation & Diagnostics Lab Results Interpretation Result Diagram: 07/04/17 0820 07/04/17 0820 Test 07/04/17 01:21 Prothrombin Time 21.1sec (8.1-12.5) Prothromb Time International Ratio 1.95ratio Total Bilirubin 0.6mg/dL (0.0-1.2) Aspartate Amino Transf (AST/SGOT) 29U/L (0-50) Alanine Aminotransferase (ALT/SGPT) 15U/L (0-44) Alkaline Phosphatase 86U/L (25-160) Total Protein 7.7g/dL (6.4-8.4) Albumin 3.2g/dL (3.4-5.0) Lipase 11U/L (13-60) ECG Interpretation ECG Interpretation: Atrial fibrillation with a rate of [address] segments Prolonged QT interval Time: 01:55 Interpreted by: ED physician Re-Eval/Medical Decision Med Decision/Clinical Course Morbidly obese gentleman with intractable vomiting, abdominal pain and cellulitis of the left lower extremity. He is going to be placed on IV antibiotics. He does have mild acute kidney injury on his laboratory work. He is going to undergo CT imaging of his got after he has had oral contrast. We will treat him with ceftriaxone and then possibly vancomycin however we will consider pharmacy for dosing to the fact that he is 200 kg. Careful IV hydration. Nausea controlled with Phenergan. Need to be careful because he has a prolonged QT. Source of Hx: Old records Time of Eval: 02:28 Re-Evaluation/Progress Note: Pt rechecked. Informed pt of plan for admission. Pt understands and agrees with plan for admission. All questions addressed. Consultation : Referral / Consult Name: Deirdre Helm DO Consulted With: Hospitalist Call Returned at: 03:02 Vice President Corporate Communications: Will see patient, Agrees with eval, Agrees with plan, Accepts admit Counseled Regarding: Diagnosis, Lab results, Need for admission Discharge & Departure Shift Change Sign-Out Laboratory Evaluation: Lab evaluation discussed Primary Impression: Abdominal pain Abdominal location: left upper quadrant Qualified Code: R10.12 - Left upper quadrant pain Additional Impressions: Cellulitis of left lower extremity Urinary tract infection Urinary tract infection type: acute cystitis Hematuria presence: without hematuria Qualified Code: N30.00 - Acute cystitis without hematuria Disposition: ADMITTED TO HOSPITAL Vital Signs - All Vital Signs Date Time Temp Pulse Resp B/P Pulse Ox O2 Delivery O2 Flow Rate FiO2 07/04/17 01:24 97 19 122/57 92 Room Air )( All Prior VS Reviewed: Yes Condition: Stable Referrals: Odilon Moore DO (PCP) Scribe Attestation Portions of this note were transcribed by Dolores Baker. I, Dr. Menjivar personally performed the history, physical exam and medical decision-making; I reviewed and confirmed the accuracy of the information in the transcribed note. Signed by : Luis Miguel Saldaña, 07/03/17. copies to: Odilon Moore Todd P DO Jul 04, 2017 01:27 Dolores Quiñones Jul 04, 2017 01:32 9.0mg/dL (8.5-10.1) Magnesium Level 1.5mg/dL (1.6-2.6) Total Bilirubin 0.6mg/dL (0.0-1.2) Aspartate Amino Transf (AST/SGOT) 29U/L (0-50) Alanine Aminotransferase (ALT/SGPT) 15U/L (0-44) Alkaline Phosphatase 86U/L (25-160) Total Protein 7.7g/dL (6.4-8.4) Albumin 3.2g/dL (3.4-5.0) Lipase 11U/L (13-60) Lactic Acid Level 2.9mmol/L (0.4-2.0) ECG Interpretation ECG Interpretation: Atrial fibrillation with a rate of [address] segments Prolonged QT interval Time: 01:55 Interpreted by: ED physician Re-Eval/Medical Decision Med Decision/Clinical Course Morbidly obese gentleman with intractable vomiting, abdominal pain and cellulitis of the left lower extremity. He is going to be placed on IV antibiotics. He does have mild acute kidney injury on his laboratory work. He is going to undergo CT imaging of his got after he has had oral contrast. We will treat him with ceftriaxone and then possibly vancomycin however we will consider pharmacy for dosing to the fact that he is 200 kg. Careful IV hydration. Nausea controlled with Phenergan. Need to be careful because he has a prolonged QT. Source of Hx: Old records Time of Eval: 02:28 Re-Evaluation/Progress Note: Pt rechecked. Informed pt of plan for admission. Pt understands and agrees with plan for admission. All questions addressed. Consultation : Referral / Consult Name: Deirdre Helm DO Consulted With: Hospitalist Call Returned at: 03:02 Vice President Corporate Communications: Will see patient, Agrees with eval, Agrees with plan, Accepts admit Counseled Regarding: Diagnosis, Lab results, Need for admission Discharge & Departure Shift Change Sign-Out Laboratory Evaluation: Lab evaluation discussed Primary Impression: Abdominal pain Abdominal location: left upper quadrant Qualified Code: R10.12 - Left upper quadrant pain Additional Impression: Cellulitis of left lower extremity Disposition: ADMITTED TO HOSPITAL Vital Signs - All Vital Signs Date Time Temp Pulse Resp B/P Pulse Ox O2 Delivery O2 Flow Rate FiO2 07/04/17 01:24 97 19 122/57 92 Room Air )( All Prior VS Reviewed: Yes Condition: Stable Referrals: Odilon Moore DO (PCP) Luis Miguel Attestation Portions of this note were transcribed by Dolores Baker. I, Dr. Menjivar personally performed the history, physical exam and medical decision-making; I reviewed and confirmed the accuracy of the information in the transcribed note. Signed by : Luis Miguel Saldaña, 07/03/17. copies to: Odilon Moore Todd P DO Jul 04, 2017 01:27 Dolores Quiñones Jul 04, 2017 01:32
[2017-07-04] MEDS ORDERED: HYDROmorphone 0.5 mg/0.5 mL iSecure Syringe IVPUSH PRN (01:30)
[2017-07-04] MEDS ORDERED: Ondansetron 2 mg/mL 2 mL Inj IVPUSH PRN (01:55)
[2017-07-04 02:00] LABS: BASOPHILS % (AUTO) 0.1 % (0-3); EOSINOPHILS % (AUTO) 0 % (0-5); MONOCYTES % (AUTO) 6.9 % (4-12); Mean Corpuscular Hemoglobin 26.7 pg (27.0-35.0); Mean Corpuscular Volume 83.3 fL (81-100); NEUTROPHILS % (AUTO) 87.3 % (40-74); Platelet Count 164 bil/L (150-400)
[2017-07-04] MEDS ORDERED: Promethazine Inj 12.5 MG in Dextrose 5%-Pha MIX 50 ML IV ONE (02:00)
[2017-07-04] MEDS ORDERED: Promethazine Inj 12.5 MG in 0.9% Sodium Chloride 50 ML IV ONE (02:01)
[2017-07-04 02:06] LABS: INR 1.95 ratio
[2017-07-04 02:22] LABS: Magnesium 1.5 mg/dL (1.6-2.6)
[2017-07-04] MEDS ORDERED: 0.9% Sodium Chloride 1,000 ML IV ONE (02:25)
[2017-07-04] MEDS ORDERED: Iohexol 300 mg/mL 30 mL Inj PO ONE (02:35)
[2017-07-04] MEDS ORDERED: cefTRIAXone Inj 2,000 MG in Dextrose 5% Minibag Plus 50 ML IV ONE (02:35)
[2017-07-04] MEDS ORDERED: Polyethylene Glycol (PEG) 17 Gm Powder PO PRN (03:50)
[2017-07-04] MEDS ORDERED: Alum-Mag Hydrox-Simeth 30 mL Suspension PO PRN (03:50)
[2017-07-04] MEDS ORDERED: Glucose 40% Oral Gel 15 Gm Tube PO PRN (03:55)
[2017-07-04] MEDS ORDERED: Dextrose 10% 250 ML IV PRN (04:00)
--- NOTE | 2017-07-04 05:13 | PCM.EDPN ---
ED Note Date of Service Jul 04, [address] scanning without contrast given his underlying renal insufficiency. The scan reveals air in the bladder and no other significant findings, most particularly no evidence of bowel edema or mesenteric edema to suggest mesenteric ischemia. It was felt reasonable not to repeat his scan with contrast, as adequate information is available without that. The explanation for the air in the urinary bladder is apparently not a Cordova catheter other instrumentation. This raises the question of a fistula, versus a gas forming anaerobic organism. Culture is pending. He has no particular sign of sepsis despite a mild elevation of his lactic acid. Urinalysis reportedly showed only blood on dip and no white cells. Urine by microscopic is awaited. Admitted now to the medicine service. Labs & Diagnostics Labs & Diagnostics CT Abdomen and Pelvis: IMPRESSION: Enlarged fatty liver. Air in the urinary bladder. Cholelithiasis. \Bilateral renal stones. ED Scribe Statement Portions of this note were transcribed by Sonia Díaz. I, Dr. Cano personally performed the history, physical exam and medical decision-making; I reviewed and confirmed the accuracy of the information in the transcribed note. SONIA DÍAZ Jul 04, 2017 05:13 Yadiel Cano MD Jul 04, 2017 07:07
[2017-07-04] MEDS ORDERED: Magnesium Sulf 2 Gm/50mL Water 2 GM in IV Premix 1 EACH IV ONE (05:30)
--- NOTE | 2017-07-04 05:44 | PCM.HPMED ---
Subjective Date of Service Jul 04, 2017 Primary Provider: Admitting Physician: Primary Care Physician: Odilon Moore DO Attending Physician: Admit Status: From the Emergency Department, Full Admit Chief Complaint: Cellulitis. . History of Present Illness: Juan Ramon Titus is a morbidly obese 61-year-old male with a past medical history significant for diabetes mellitus type II, non-insulin using, chronic atrial fibrillation on warfarin who presented to [facility] emergency department via EMS complaining of abdominal pain onset 3 years ago. He complains of associated severe nausea, vomiting, weight loss, and constipation. He describes the abdominal pain as dull in quality. It worsens after meals especially large meals. The pain is located diffusely throughout the left side of his abdomen and does not radiate. He denies headache, vision changes, sore throat, cough, chest pain, palpitations, shortness of breath, fever, chills, dysuria, diarrhea or constipation. He reports he is able to eat very little and as a result does not urinate as much or have bowel movements as often. Vital signs in the ER: Temperature 36.7.Pulse 97. Respiratory rate 19. Blood pressure 122/57. Pulse ox 92% room air. He received hydromorphone IV 0.5 mg 1 , promethazine IV 12.5 mg 1, Rocephin IV 2 g 1, and 1 L of NS. PCP is [facility]. . Review of Systems: A comprehensive review of systems was conducted with the patient and found to be negative except as above in the History of Present Illness. . Allergies Coded Allergies: Penicillins (Verified Allergy, Unknown, Unknown, 04/20/17) Home Medications Medications not yet verified as medication reconciliation has not been obtained. Aspirin 81 mg daily. Atorvastatin 40 mg daily at bedtime. Cefdinir 300 mg twice a day. Ferrous sulfate 325 mg twice a day. Magnesium 30 mg daily. Multivitamin daily. Nitroglycerin 0.4 mg sublingual every 5 minutes as needed for chest pain. Ondansetron 4 mg every 4 hours as needed for nausea. Oxycodone 2 tablets every 6 hours as needed for pain. Oxymorphone 10 mg twice a day. Prednisone 5-10 mg as needed for RA flare. Spironolactone 12.5 mg daily. Tamsulosin 0.4 mg daily at bedtime. Warfarin 7.5 mg daily. Vitamin D 2000 units daily. . PMH 1. Morbid obesity (BMI 45). 2. Chronic atrial fibrillation with history of right lower extremity DVT in July 2013 on warfarin. 3. Stage III chronic kidney disease with baseline creatinine of around 1.3-1.5. 4. Rheumatoid arthritis. 5. Diabetes mellitus type II, non-insulin using. 6. History of atrial flutter status post cardioversion and ablation in 2006. 7. History of cardiomyopathy, resolved (LVEF 50-55%). 8. Hypertension. 9. Charcot joint of left leg. 10. BPH. 11. Chronic lower extremity lymphedema. 12. Chronic pain with opiate habituation. 13. Hyperlipidemia. . Surgical History 1. Hiatal hernia repair. 2. Left arm fracture repair. 3. Carpal tunnel release. 4. Lithotripsy. 5. Cardiac ablation. . Family History His mother had heart failure. . Social History Hx Alcohol Use: No Hx Substance Use: No Hx Tobacco Use: No Smoking Status: Never Smoker Additional Information The patient is single and has never been . He has no children. He previously worked in construction. He lives at home with full-time caregivers. . Exam Vital Signs Vital Sign - Last Date Time Temp Pulse Resp B/P Pulse Ox O2 Delivery O2 Flow Rate FiO2 07/04/17 01:24 97 19 122/57 92 Room Air Exam General: Middle-aged gentleman lying in bed and in no acute distress, morbidly obese, appropriately interactive. HEENT: Normocephalic, atraumatic. External ears without defect. Pupils equal, round, and reactive to light. Anicteric sclerae, moist conjunctivae, and no lid lag. Oropharynx free of erythema and cobble stoning with moist mucosa. Neck: Supple with full range of motion. No jugular venous distension. No bruits. No lymphadenopathy or thyromegaly. Cardiovascular: Irregularly irregular rhythm without murmurs, rubs, or gallops appreciated. Pulmonary: Clear to auscultation bilaterally in anterior lung solis without crackles, wheezes, or rhonchi. Normal respiratory effort with no use of accessory muscles. Abdomen: Soft, obese, nontender, nondistended, bowel sounds present. No suprapubic or CVA tenderness. No hepatosplenomegaly or masses appreciated. Extremities: Right lower extremity cellulitis up to mid thigh, red, warm, nonpurulent. Right Charcot foot in boot. No clubbing or cyanosis. Moderate bilateral nonpitting edema to knees. Skin: Normal temperature, turgor, and texture; no rash, ulcers, or subcutaneous nodules appreciated. Neurological: Cranial nerves grossly intact. Normal muscle strength, tone, and bulk. Reflexes, coordination, and sensory function within normal limits. No known gait impairment. Psychiatric: Normal mood and affect. Alert and oriented to person, place, and time. . Lab and Diagnostics Labs Item Value Date Time Procalcitonin 1.44 ng/mL H 07/04/17120 Item Value Date Time Prothrombin Time 21.1 sec H 07/04/17120 Prothromb Time International Ratio 1.95 ratio 07/04/17120 Item Value Date Time Lactic Acid Level 2.9 mmol/L H 07/04/17209 Calcium Level 9.0 mg/dL 07/04/17120 Magnesium Level 1.5 mg/dL L 07/04/17120 Total Bilirubin 0.6 mg/dL 07/04/17120 Aspartate Amino Transf (AST/SGOT) 29 U/L 07/04/17120 Alanine Aminotransferase (ALT/SGPT) 15 U/L 07/04/17120 Alkaline Phosphatase 86 U/L 07/04/17120 Total Protein 7.7 g/dL 07/04/17120 Albumin 3.2 g/dL L 07/04/17120 Lipase 11 U/L L 07/04/17120 Result Diagram: 07/04/1712007/04/17120 X-Rays, CTs and MRIs CT abdomen and pelvis without contrast Nighthawk read: Impression: Enlarged fatty liver. Cholelithiasis. Bilateral renal stones. Chuck Waller MD . 12-lead ECG EKG: Atrial fibrillation, heart rate 86, no pathological Q waves or acute ischemic changes such systolic elevation or depression. Assessment & Plan Juan Ramon Titus is a morbidly obese 61-year-old male with a past medical history significant for diabetes mellitus type II, non-insulin using, chronic atrial fibrillation on warfarin who presented to [facility] emergency department via EMS complaining of abdominal pain onset 3 years ago. 1. Acute on chronic abdominal pain, present on admission. Active. - Patient presents with abdominal pain that has acutely worsened over the last month with accompanying nausea and decreased PO intake. - Differential diagnosis includes: Opiate-induced gastroparesis versus cholelithiasis versus nephrolithiasis versus chronic mesenteric ischemia. - CT abdomen and pelvis without contrast revealed bilateral renal stones the biggest 18 mm, cholelithiasis, enlarged fatty liver, and air in the non- dominant portion of the bladder. Of note, the patient denies pneumaturia or self catherterization, therefore may want to consider fistula or gas forming microorganism in genitourinary tract. - Ordered Relistor IV 12 mg every 48 hours. - Ordered urinalysis with culture if indicated, pending. 2. Acute right lower extremity non-purulent cellulitis, present on admission. Active. - Ordered wound care evaluation. - Elevate lower extremity as much as tolerated. - Lactic acid mildly elevated at 2.9 but in context of CKD. - Initial procalcitonin 1.44 but in context of CKD. - Received 1 L NS in the ED. Started IV fluid hydration with NS at 100 mL/hr. - Received ceftriaxone IV 2 g 1 in the ED. Continue ceftriaxone IV 2 g daily. Chronic problems: 3. Chronic atrial fibrillation, present on admission. Stable. - History of right lower extremity DVT. - Subtherapeutic with INR 1.95. Continue warfarin with dosing per pharmacy. 4. Chronic kidney disease stage III, present on admission. Stable. - Baseline creatinine of around 1.3-1.5. - Avoid nephrotoxic agents. Started IV fluid hydration with NS at 100 mL/hr. 5. Rheumatoid arthritis, present on admission. Stable. - Previously on prednisone 5-10 mg as needed for RA flare. 6. Diabetes mellitus type II, non-insulin using, present on admission. Stable. - Hemoglobin A1c 7.3% and 04/2017. - Order low-dose correctional scale insulin. - Ordered heart healthy/carbohydrate consistent diet. 7. BPH, present on admission. Stable. - Continue tamsulosin 0.4 mg daily at bedtime. 8. Chronic lymphedema, present on admission. Stable. - Ordered wound care. 9. Morbid obesity, present on admission. Stable. - BMI 45. - Immobile and in wheelchair. Continue Brittany lift. - Ordered physical therapy. 10. Chronic pain with opiate of the situation, present on admission. Stable. - Patient has Charcot joint of left leg. - Continue oxymorphone 10 mg twice a day and oxycodone 10-325 mg 2 tablets every 6 hours as needed for breakthrough pain. 11. Hyperlipidemia, present on admission. Stable. - Continue atorvastatin 40 mg daily at bedtime and aspirin 81 mg daily. 12. History of cardiomyopathy. - Continue spironolactone 12.5 mg daily. Medication reconciliation has not been obtained. Day team to reconcile medications. PRN antiemetics: Zofran and Maalox. PRN bowel regimen: Senna and MiraLAX. PRN analgesics: Tylenol. Patient is admitted under inpatient status with expected length of stay greater than 2 midnights due to severity of presenting symptoms, risk of adverse event, and complexity of treatment plan. . VTE Prophylaxis: Theraputic Anticoag with Warfarin Resuscitation Status: CPR: Attempt Resuscitation Attending Statement Patient has been seen and examined by myself with medical billing assistant and agree with above history, physical, assessment and plan. Abena Valero DO Jul 04, 2017 03:29 Leilani Orellana MD Jul 04, 2017 07:27
[2017-07-04] MEDS: 0.9% Sodium Chloride 1,000 ML IV SCH ×2 (06:43→17:38)
--- NOTE | 2017-07-04 07:09 | NUR ---
Admit Arrived to [facility] approx 0520, via edvin-bed. A&Ox3, reports nausea but no other discomfort, however during limited skin assessment pt is noted to wince with palpation to LLE. Pt will not allow full skin assessment and states that the wound care clinic and Dr Butterfield take care of his wounds 3x/wk. VSS, POC in place.
[2017-07-04 08:05] LABS: APPEARANCE,URINE CLOUDY (CLEAR,HAZY); COLOR,URINE YELLOW (YELLOW); OCCULT BLOOD,URINE SMALL (NEGATIVE); UROBILINOGEN,URINE NORMAL (NORMAL)
[2017-07-04] MEDS: Methylnaltrexone 12 mg/0.6 mL Inj SUBQ SCH (08:30)
[2017-07-04 08:34] LABS: BASOPHILS % (AUTO) 0.1 % (0-3); EOSINOPHILS % (AUTO) 0 % (0-5); MONOCYTES % (AUTO) 11.2 % (4-12); Mean Corpuscular Hemoglobin 26.4 pg (27.0-35.0); Mean Corpuscular Volume 83.9 fL (81-100); NEUTROPHILS % (AUTO) 79.3 % (40-74); Platelet Count 125 bil/L (150-400)
--- NOTE | 2017-07-04 08:43 | DRSVH ---
PROCEDURE: CT ABDOMEN AND PELVIS WITHOUT CONTRAST ([id number]) INDICATIONS: 62-year-old male with abdominal pain. TECHNIQUE: After the administration of oral contrast, 5 mm thick sections acquired from the diaphragms to the sy mphysis. 5 mm coronal and sagittal reformats were performed. For radiation dose reduction, the foll owing was used: automated exposure control, adjustment of mA and/or kV according to patient size. COMPARISON: [facility], US, US ABDOMEN, 11/28/2016, 14:53. [facility], CT, C T ANGIO CHEST PE, 04/20/2017, 13:52. FINDINGS: Image quality: Excellent. ABDOMEN: Lung bases: Multiple thickening and calcification in the right lower hemithorax Lung bases are clear . Heart size is mildly increased. No pericardial effusion. Small hiatal hernia. Solid organs: Liver is mildly enlarged with diffuse hepatic fatty infiltration. Spleen is increased in size measuring 20 cm in length. Gallbladder is distended and contains gallstones. Pancreas is nor mal in size. No adrenal nodules. There are multiple renal calculi in right kidney. The largest one 13 x [address] density 743 HU. There is a 3 mm stone in the left kidney. No hydronephrosis Both kidneys are normal in size. There is a 6 cm simple appearing cyst in the inferior pole of the right kidney. Peritoneum and bowel: Bowel loops demonstrate normal wall thickness and caliber. A few colonic dive rticula are present. No free fluid or air. Nodes and vessels: No retroperitoneal or mesenteric adenopathy by size criteria. Aorta and inferior vena cava are normal in size. Miscellaneous: There are post surgical changes related to ventral hernia repair in the right lower an terior abdominal wall. PELVIS: Genitourinary: Bladder wall thickness is normal. There is air within the bladder lumen. Miscellaneous: No inguinal hernias or adenopathy. Bones: No suspicious bony lesions. No vertebral body compression fractures. IMPRESSION: 1. Severe hepatic steatosis. 2. Splenomegaly. 3. Cholelithiasis. Gallbladder is distended. Ultrasound or HIDA scan may be helpful for further evalu ation if there is clinical suspicion for acute cholecystitis. 4. Nephrolithiasis bilaterally. No hydronephrosis. 5. A 6 cm simple cyst in inferior pole of the right kidney. 6. Air within the bladder lumen may be iatrogenic such as catheterization. Recommend clinical correla tion. 7. Mild diverticulosis. No evidence for acute diverticulitis. 8. Pleural thickening and calcification in the inferior right hemithorax. This finding may be seconda ry to history of exposure to asbestosis or history of infection or thoracostomy. Dictated by: Naya Orr M.D. on 07/04/2017 at 8:32 Transcribed by: ELA on 07/04/2017 at 8:44 Approved by: Naya Orr M.D. on 07/04/2017 at 21:18
[2017-07-04 09:03] LABS: Magnesium 1.7 mg/dL (1.6-2.6)
[2017-07-04] MEDS: Insulin LISPRO 300 Unit/3 mL Inj SUBQ SCH ×4 (09:11→22:00)
--- NOTE | 2017-07-04 09:14 | NUR ---
Social Work-initial assessment: Data:see initial assessment. Pt is a 61 y/o male who was admitted on 07/04/17 for abdomen pain per H&P. Pt's insurance is Medicaid and PCP is [facility]. EMR Reviewed. NELI met with pt at bedside, NELI role explained. Pt is alert and oriented x3. Pt resides in an apt where he remains independent with basic ADLS. Pt uses a power w/c at baseline and does not drive. Pt states he is currently open with [facility] and has history of SNF at [facility]. Pt has no extermination inspector care insurance or VA benefits. SW discussed DPOA/ advanced directive, pt confirms he has completed this, SW encouraged a copy to be brought in. Pt has 117 hours of IRENE a month and his CM is Linn Blake, updated clinicals faxed. Pt does not have capacity for self care due to having caregiver assistance at home. SW provided pt with discharge planning checklist and encouraged him to call with questions, phone number provided on white board. SW to await MD orders for resume HH to discuss pt with [facility]. Pt will likely need BLS home at discharge. SW will continue to follow. Assessment:pt who has IRENE and HH. Plan:Pt to discharge home when medically stable via BLS. SW to await MD orders for resume HH to discuss pt with Nery. Pt also has IRENE caregivers. NELI will continue to follow. CATARINO Webster Addendum: 07/04/17 at 0919 by LINN VALLE Amended: Links added.
[2017-07-04] MEDS ORDERED: oxyCODONE-Acetamin 10-325 mg Tablet PO PRN (10:10)
[2017-07-04] MEDS: MetoCLOpramide 5 mg/mL 2 mL Inj IVPUSH PRN ×2 (10:37→23:37)
--- NOTE | 2017-07-04 11:29 | PCM.CONPHA ---
Subjective Cellulitis. . Reason for Pharmacy Consult: Anticoagulation Management Assessment/Plan Assessment/Plan Warfarin Management by Pharmacy Indication: Afib Home Dose: 5 mg daily (per pt report: had INR close to 4 while taking 7.5 mg daily so dose was reduced one week ago in clinic) INR Goal: 2-3 Duration: Chronic INR: 1.95 Assessment/Plan -Subtherapeutic INR. Pt reports last dose was taken evening of 07/02. No dose given yesterday evening. -Will restart warfarin at 7.5 mg this evening to address missed dose last evening. Anticipate 5 mg thereafter based on trend. -Pharmacy to monitor INR/CBC/signs of bleeding while inpatient. ThanksZamzam Dwaine Pharm.D. Ed Wyman Jul 04, 2017 11:29
--- NOTE | 2017-07-04 13:21 | NUR ---
Inpatient Wound Nurse Patient seen for RLE wound. Patient stated that he was not home for home health wound care yesterday and his dressings are normally changed on . Wound on anterior arizmendi is 5 cm L x 2 .5 cm W, beefy red wound bed, edges well --adhered, draining small amount of sanguinous exudate, periwound warm and pink, WNL of adjacent tissue. Wound was cleansed, blotted dry, and small piece of Quezada silk was placed over wound bed, followed by ABD and Kerlix. Patient's Farro wrap was applied. Patient stated that wound care was painful but abated quickly once completed. He was not cooperative with positioning, refused to pull himself up in bed so that CWON could have clearer access to RLE, made very minimal conversation with nurse, and avoided eye contact. This patient normally sees Dr. Butterfield, who was made aware of patient's admission and that patient was admitted for abdominal pain, not for wounds. CWON will follow until inpatient wound care is no longer indicated. Expect next interaction for wound care to be , 07/06.
[2017-07-04] MEDS ORDERED: Warfarin 5 MG, Warfarin 2.5 MG PO ONE ×2 (17:00)
[2017-07-04] MEDS: oxyCODONE-Acetamin 10-325 mg Tablet PO PRN (17:45)
--- NOTE | 2017-07-04 18:42 | NUR ---
Refuse BG checked Patient refused before BG checked. Stating you just took it. This RN informed the patient I took his BG at lunch time. He stated he was not going to play that game. This RN informed the patient its okay if he does not want his BG checked. Patient states Yes I don't want to.
[2017-07-04] MEDS ORDERED: OXYMORPHONE 10 MG PO SCH (20:30)
[2017-07-04] MEDS ORDERED: ZYL100 PO (20:53)
[2017-07-04] MEDS ORDERED: SENN-133 PO (20:53)
[2017-07-04] MEDS ORDERED: CARV6.252 PO (20:53)
[2017-07-04] MEDS ORDERED: CALC500T9 PO (20:53)
[2017-07-04] MEDS ORDERED: POTA10CA42 PO (20:53)
[2017-07-04] MEDS ORDERED: METF850T2 PO (20:53)
[2017-07-04] MEDS ORDERED: WARF5TAB7 PO ×2 (20:53)
[2017-07-04] MEDS ORDERED: TORS20TA3 PO (20:53)
[2017-07-04] MEDS ORDERED: ASPI325T32 PO (20:53)
[2017-07-04] MEDS: oxyCODONE ER 10 mg ER12 Tablet PO SCH (23:10)
[2017-07-05] VITALS (7 sets, daily range): BP systolic 123–158; BP diastolic 76–82; PULSE 78–100; RESP 16–19; O2SAT 94–98
[2017-07-05] MEDS: oxyCODONE-Acetamin 10-325 mg Tablet PO PRN ×5 (00:54→22:39)
[2017-07-05] MEDS: 0.9% Sodium Chloride 1,000 ML IV SCH ×3 (03:25→22:48)
[2017-07-05] MEDS: Ondansetron 2 mg/mL 2 mL Inj IVPUSH PRN ×2 (03:25→21:57)
[2017-07-05 05:43] LABS: BASOPHILS % (AUTO) 0.2 % (0-3); MONOCYTES % (AUTO) 13.5 % (4-12); Mean Corpuscular Hemoglobin 26.4 pg (27.0-35.0); Mean Corpuscular Volume 84.1 fL (81-100); NEUTROPHILS % (AUTO) 74.2 % (40-74); Platelet Count 137 bil/L (150-400)
[2017-07-05 05:58] LABS: INR 1.61 ratio
--- NOTE | 2017-07-05 06:22 | NUR ---
BG/pain/nausea Pt refused to get his BG checked at HS. pt c/o generalized pain relieved by oxycontin and Percocet. Reglan given for nausea with minimal relief. Zofran given- effective; able to tolerate water; no vomiting noted. VSS, afebrile.
[2017-07-05] MEDS: Insulin LISPRO 300 Unit/3 mL Inj SUBQ SCH ×4 (08:00→22:00)
[2017-07-05] MEDS: cefTRIAXone Inj 2,000 MG in Dextrose 5% Minibag Plus 50 ML IV SCH (08:13)
[2017-07-05] MEDS: MetoCLOpramide 5 mg/mL 2 mL Inj IVPUSH PRN (08:13)
--- NOTE | 2017-07-05 08:18 | PCM.PNMED ---
Subjective Date of Service Jul 05, 2017 Subjective Admitted yesterday for cellulitis, leg about the same, not getting worse today. Still with decreased appetite and nausea. No history of MERSA. Did have a toe nail debrided by podiatry few day ago. Exam Vital Signs Vital Sign - Last Date Time Temp Pulse Resp B/P Pulse Ox O2 Delivery O2 Flow Rate FiO2 07/05/17 04:19 36.5 81 18 123/76 96 Room Air Intake and Output 07/04/17 07/04/17 07/05/17 Cumulative From/Thru 15:00 23:00 07:00 07/04/17 01:24 - 07/05/17 06:23 Intake Total 1777 ml 1649 ml 4426 ml Output Total 1225 ml 1325 ml 2550 ml Balance 552 ml 324 ml 1876 ml Intake Oral 626 ml 550 ml 1176 ml IV Total 1151 ml 1099 ml 3250 ml Output Urine Total 1225 ml 1325 ml 2550 ml # Bowel Movements 1 1 2 Exam Skin; warm dry, area cellulitis inner right leg up to groin bu not including, down to bit below knee. Not raised, non purulent toes clean with out active infection, healing scabs but mark does not appear to be infected HENT; adequate hydration, no lesions Eyes; alix eom intact CV; no murmur, reg Resp; clear anteriorly GI; soft and non acute, diffuse mild tenderness CN; 2-12 intact, no focal deficits Lab and Diagnostics Result Diagram: 07/05/17 0510 07/05/17 0510 X-Rays, CTs and MRIs CT abdomen and pelvis without contrast Nighthawk read: Impression: Enlarged fatty liver. Cholelithiasis. Bilateral renal stones. Chuck Waller MD . 12-lead ECG EKG: Atrial fibrillation, heart rate 86, no pathological Q waves or acute ischemic changes such systolic elevation or depression. Assessment & Plan Juan Ramon Titus is a morbidly obese 61-year-old male with a past medical history significant for diabetes mellitus type II, non-insulin using, chronic atrial fibrillation on warfarin who presented to [facility] emergency department via EMS complaining of abdominal pain onset 3 years ago. 1. Acute on chronic abdominal pain, poa. Active. - Patient presents with abdominal pain that has acutely worsened over the last month with accompanying nausea and decreased PO intake. - Differential diagnosis includes: Opiate-induced gastroparesis versus cholelithiasis versus nephrolithiasis versus chronic mesenteric ischemia. - CT abdomen and pelvis without contrast revealed bilateral renal stones the biggest 18 mm, cholelithiasis, enlarged fatty liver, and air in the non- dominant portion of the bladder. of note, the patient denies pneumaturia or self catherterization, therefore may want to consider fistula or gas forming microorganism in genitourinary tract. - Ordered Relistor IV 12 mg every 48 hours. - ordered abdo ultrasound today 2. Acute UTI, poa, active - day 2 of ceftriaxone,-await cult and sensitivity 3. Acute right lower extremity non-purulent cellulitis, poa. Active. - Ordered wound care evaluation. - Elevate lower extremity as much as tolerated. - Lactic acid mildly elevated at 2.9 on admit, normalized to 1.8 - Initial procalcitonin 1.44, 1.64, repeat tomorrow - Continue ceftriaxone IV 2 g daily. (day #2- ink walters applied today - nasal mrsa screen Chronic problems: 4. Chronic atrial fibrillation, present on admission. Stable. - History of right lower extremity DVT. - Subtherapeutic with INR 1.95. Continue warfarin 5. Chronic kidney disease stage III, present on admission. Stable. - Baseline creatinine of around 1.3-1.5. - Avoid nephrotoxic agents. - Started IV fluid hydration with NS at 100 mL/hr, reduce to 40 cc/hour 5. Rheumatoid arthritis, present on admission. Stable. - Previously on prednisone 5-10 mg as needed for RA flare. 6. Diabetes mellitus type II, non-insulin using, present on admission. Stable. - Hemoglobin A1c 7.3% and 04/2017. - Order low-dose correctional scale insulin. - Ordered heart healthy/carbohydrate consistent diet. 7. BPH, present on admission. Stable. - Continue tamsulosin 0.4 mg daily at bedtime. 8. Chronic lymphedema, present on admission. Stable. - Ordered wound care. 9. Morbid obesity, present on admission. Stable. - BMI 45. - Immobile and in wheelchair. Continue Brittany lift. - Ordered physical therapy. 10. Chronic pain with opiate of the situation, present on admission. Stable. - Patient has Charcot joint of left leg. - Continue oxymorphone 10 mg twice a day and oxycodone 10-325 mg 2 tablets every 6 hours as needed for breakthrough pain. 11. Hyperlipidemia, present on admission. Stable. - Continue atorvastatin 40 mg daily at bedtime and aspirin 81 mg daily. 12. History of cardiomyopathy. - Continue spironolactone 12.5 mg daily. Medication reconciliation has not been obtained. Day team to reconcile medications. PRN antiemetics: Zofran and Maalox. PRN bowel regimen: Senna and MiraLAX. PRN analgesics: Tylenol. Patient is admitted under inpatient status with expected length of stay greater than 2 midnights due to severity of presenting symptoms, risk of adverse event, and complexity of treatment plan. . VTE Prophylaxis: Theraputic Anticoag with Warfarin Resuscitation Status: CPR: Attempt Resuscitation Jose Delaney MD Jul 05, 2017 08:18
[2017-07-05] MEDS ORDERED: MAGNESIUM 30 MG PO SCH (08:30)
[2017-07-05] MEDS ORDERED: Non-Formulary Medication (Multivits-Min/FA/Lycopene/Lut (Centrum Silver Tablet) 1 EACH) PO SCH (08:30)
[2017-07-05] MEDS: oxyCODONE ER 10 mg ER12 Tablet PO SCH ×3 (10:34→20:56)
--- NOTE | 2017-07-05 10:58 | NUR ---
Social Work-readiness for discharge: Data:EMR Reviewed. Pt is on day 1 of hospitalization for abdomen pain per H&P. Pt is not medically stable anticipate a few more days. MD order received from MD for resume HH orders. SW spoke with Madi Sheikh at [facility] who confirms that pt is open with RN and PT services, access given. Pt also has IRENE caregivers at home. Pt will require BLS at discharge. SW will continue to follow. Assessment:Pt to benefit from resume HH. Plan:Pt to discharge home when medically stable via BLS. Pt will need resume HH orders at discharge. Pt to continue with home IRENE caregivers. SW will continue to follow. CATARINO Webster
--- NOTE | 2017-07-05 11:23 | PCM.PHAPRO ---
Progress Cellulitis. . WARFARIN DOSING PER PHARMACY [facility] DFF DFF Date Jul 05-Jun INR 1.95 1.61 INR change -0.34 Warf Dose 7.5 7.5 A/P -Subtherapeutic INR. Missed dose on 07/03 due to hospital admission and was recently instructed per coag clinic to take lower dose (5mg daily) for past week with supratherapeutic INR ~week ago. -Will continue with warfarin 7.5 mg this evening and continue to monitor. Ed Wyman, PharmD Ed Wyman Jul 05, 2017 11:23
--- NOTE | 2017-07-05 13:05 | NUR ---
Skin/Tele/BG Pt alert and oriented. Able to follow commands. Using call light for needs. Left generalized upper and lower leg cellulitis. It has been outlined with a sharpie. No drainage noted. Pt is followed by Dr. Butterfield outpatient and has dressing changed every other day. Hospitalist placed order for her to see pt here. Tele A-fib 80's w/PVC's. This morning pt had 21 beats of v-tach per tele rate 80-110's. Pt most likely moving around in bed. His K+ is 3.8 and he is receiving Torsemide with no K+ supplement. Will tara Sarmiento Pt has been refusing blood glucose checks. He states he forgot his teeth at home so soft foods is what he has been ordering. Care ongoing. Addendum: 07/05/17 at 1812 by ARIANA WOOD RN Spoke with Torsten relayed the 21 beats of V-tach and rate pt had. Confirmed that a 10meq NOW dose had already been given this afternoon and his home dose is now resumed. His home dose if 10meq Potassium Chloride BID. Care ongoing.
[2017-07-05] MEDS ORDERED: Potassium Citrate ER 10 mEq ER24 Tablet PO SCH (13:39)
[2017-07-05] MEDS ORDERED: Warfarin 5 MG, Warfarin 2.5 MG PO ONE ×2 (17:00)
--- NOTE | 2017-07-05 18:58 | DRSVH ---
PROCEDURE: US ABDOMEN, LIMITED ([id number]) INDICATIONS: abdo pain, h/o gall stones TECHNIQUE: Real-time focused scanning was performed of the abdomen, with image documentation. COMPARISON: None. FINDINGS: Gallbladder contains multiple stones and sludge. No gallbladder wall thickening. Gallbla dder wall measures 2.6 mm. No pericholecystic fluid. No sonographic Moeller sign. Common bile duct measures 5.3 mm. IMPRESSION: Cholelithiasis without evidence of cholecystitis. Dictated by: Mayela Cameron MD, PhD on 07/05/2017 at 18:55 Approved by: Mayela Cameron MD, PhD on 07/05/2017 at 18:56
[2017-07-06] VITALS (7 sets, daily range): BP systolic 121–151; BP diastolic 79–89; PULSE 82–102; RESP 15–21; O2SAT 94–97
[2017-07-06] MEDS: MetoCLOpramide 5 mg/mL 2 mL Inj IVPUSH PRN (02:52)
--- NOTE | 2017-07-06 03:12 | NUR ---
NAUSEA/PAIN Pt has had intermittent c/o nausea. Pt also c/o generalized pain. Pt given prn pain pills. Soon after, pt threw up the pills. Pills were observed in emesis by RN. PRN IV zofran given. After awhile, pt wanted to try to take pills again. Pt also requested TUMS. Dose given, pt able to keep pills down. Later in night, pt nauseated again. PRN IV reglan given. paged, rec'd orders for prn Tums and prn IV pain medication if pt continues to not be able to tolerate pills d/t N/V. Continue to monitor. Call light in reach. Intentional rounding.
[2017-07-06] MEDS: HYDROmorphone 1 mg/mL Inj IVPUSH PRN ×3 (04:46→18:41)
[2017-07-06 05:20] LABS: BASOPHILS % (AUTO) 0.2 % (0-3); EOSINOPHILS % (AUTO) 1.4 % (0-5); MONOCYTES % (AUTO) 9.3 % (4-12); Mean Corpuscular Hemoglobin 26.5 pg (27.0-35.0); Mean Corpuscular Volume 83.6 fL (81-100); NEUTROPHILS % (AUTO) 79.9 % (40-74); Platelet Count 141 bil/L (150-400)
[2017-07-06 05:38] LABS: INR 1.84 ratio
[2017-07-06] MEDS: Ondansetron 2 mg/mL 2 mL Inj IVPUSH PRN ×2 (07:29→08:55)
[2017-07-06] MEDS: Insulin LISPRO 300 Unit/3 mL Inj SUBQ SCH ×4 (07:48→21:38)
[2017-07-06] MEDS: Methylnaltrexone 12 mg/0.6 mL Inj SUBQ SCH (08:30)
[2017-07-06] MEDS: oxyCODONE ER 10 mg ER12 Tablet PO SCH ×3 (08:46→20:24)
[2017-07-06] MEDS: cefTRIAXone Inj 2,000 MG in Dextrose 5% Minibag Plus 50 ML IV SCH (08:47)
--- NOTE | 2017-07-06 11:10 | NUR ---
Inpatient Wound Nurse Patient seen for anterior RLE wound. Wound essentially unchanged from Monday's assessment, beefy red wound bed, edges well-adhered, draining small amount of sanguinous exudate, periwound warm and pink, WNL of adjacent tissue. Wound was cleansed, blotted dry, and small piece of Quezada silk was placed over wound bed, followed by ABD and Kerlix per Wound Center instructions. Patient's Farro wrap was applied, including foot portion, then secured with Kerlix as Velcro straps have lost adhesion. Patient denied pain with wound care today and was much more cooperative with positioning. Dr. Butterfield is aware that patient is inpatient and has no specific need to see patient for this wound. Inpatient CWON will follow the same wound care instructions she provided to Wound Center when she sees patient there. Patient's dressing should be changed on Monday, as he is every other day change. Specific instructions will be placed on nursing interventions screen.
--- NOTE | 2017-07-06 12:01 | PCM.PHAPRO ---
Progress Date of Service: Jul 06, 2017 Cellulitis. . Warfarin Management per Pharmacy: Indication: Stroke prophylaxis as patient has atrial fibrillation ([id number]- Vasc = 2) as well as DVT prophylaxis as patient has hx of DVT (2012) and chronic lymphedema Goal INR: 2-3 Home Dose: Warfarin 5 mg daily (recently decreased from 7.5 mg daily due to a supratherapeutic INR of 4) Labs: Hct: 34.1 Plt: 141 INR: 1.84 Date Jul 05-Jul 06-Jun INR 1.95 1.61 1.84 INR change -0.34 0.23 Warf Dose 7.5 7.5 7.5 Drug-Drug Interactions: Rocephin (mild) Recommendation: Warfarin 7.5 mg PO x 1 today Continue to check daily INRs Pharmacy to continue to monitor and adjust as needed. Thank You, Alivia Ferreira, Pharm D. Alivia Ferreira Jul 06, 2017 12:01
[2017-07-06] MEDS: oxyCODONE-Acetamin 10-325 mg Tablet PO PRN ×2 (12:05→17:21)
--- NOTE | 2017-07-06 15:09 | PCM.PNMED ---
Subjective Date of Service Jul 06, 2017 Subjective Patient was seen and examined at bedside today. Patient denies any chest pain, shortness of breath, vomiting. The patient does complain of some mild nausea, mild abdominal pain with palpation, and diarrhea. Overnight events: The patient has been refusing glucose monitoring at this time. The patient states that his sugars are "under control" and does not need to have his finger stuck multiple times throughout the day. Exam Vital Signs Vital Sign - Last Date Time Temp Pulse Resp B/P Pulse Ox O2 Delivery O2 Flow Rate FiO2 07/06/17 10:39 99 07/06/17 08:29 36.3 21 144/87 95 Room Air Intake and Output 07/05/17 07/05/17 07/06/17 Cumulative From/Thru 15:00 23:00 07:00 07/04/17 01:24 - 07/06/17 06:29 Intake Total 592 ml 1432 ml 6450 ml Output Total 1375 ml 3925 ml Balance 592 ml 57 ml 2525 ml Intake Oral 973 ml 2149 ml IV Total 592 ml 459 ml 4301 ml Output Urine Total 1375 ml 3925 ml # Bowel Movements 4 6 Exam Physical Exam: GEN: Patient was awake, alert, responding appropriately to questions HEENT: Pupils equal round and reactive to light, extraocular eye muscles intact , Neck soft supple, trachea midline, nomocephalic/atraumatic CV: irregular rhythm, no murmurs, rubs or gallops auscultated Respiratory: CTAB, no wheezes, rales, rhonchi GI: +bowel sounds x4, soft, compressible, mild tenderness to palpation, morbidly obese EXT: Significant edema in the lower extremities bilaterally, left lower extremity cellulitis area still within the demarcation lines, right lower extremity currently wrapped in bandages are clean dry and intact Neuro: Cranial nerves II-XII grossly intact Psych: mood and affect were appropriate IVs and Medications Medications Reviewed: Medications were reviewed in detail Lab and Diagnostics Result Diagram: 07/06/17 0505 07/06/17 0505 X-Rays, CTs and MRIs CT abdomen and pelvis without contrast [facility] read: Impression: Enlarged fatty liver. Cholelithiasis. Bilateral renal stones. Chuck Waller MD . 12-lead ECG EKG: Atrial fibrillation, heart rate 86, no pathological Q waves or acute ischemic changes such systolic elevation or depression. Assessment & Plan Juan Ramon Titus is a morbidly obese 61-year-old male with a past medical history significant for diabetes mellitus type II, non-insulin using, chronic atrial fibrillation on warfarin who presented to [facility] emergency department via EMS complaining of abdominal pain onset 3 years ago and was lower extremity cellulitis of the left leg Acute on chronic abdominal pain, poa. Active. - Patient presents with abdominal pain that has acutely worsened over the last month with accompanying nausea and decreased PO intake. - Differential diagnosis includes: Opiate-induced gastroparesis versus cholelithiasis versus nephrolithiasis versus chronic mesenteric ischemia. - CT abdomen and pelvis without contrast revealed bilateral renal stones the biggest 18 mm, cholelithiasis, enlarged fatty liver, and air in the non- dominant portion of the bladder. of note, the patient denies pneumaturia or self catherterization, therefore may want to consider fistula or gas forming microorganism in genitourinary tract. - Ordered Relistor IV 12 mg every 48 hours. - ordered abdo ultrasound today Diarrhea secondary to Cdiff - C diff PCR positive -Continue contact precautions -Start oral vancomycin 250 mg by mouth every 6 hours Acute UTI, poa, active - Continue ceftriaxone - Cultures and sensitivities positive for Escherichia coli sensitive to ceftriaxone Acute right lower extremity non-purulent cellulitis, poa. Active. - Wound care following - Elevate lower extremity as much as tolerated. - Lactic acid mildly elevated at 2.9 on admit, normalized to 1.8 - Initial procalcitonin 1.44--> 1.64--> today 0.97 currently trending down - Continue ceftriaxone IV 2 g daily. (day #2- ink walters applied) - nasal mrsa screen negative -Follow up labs in the morning Chronic problems: Chronic atrial fibrillation, present on admission. Stable. - History of right lower extremity DVT. - Subtherapeutic with INR 1.95. - Continue warfarin Chronic kidney disease stage III, present on admission. Stable. - Baseline creatinine of around 1.3-1.5. Patient is currently below his baseline at 1.25 - Avoid nephrotoxic agents. - Started IV fluid hydration with NS at 100 mL/hr, reduce to 40 cc/hour Rheumatoid arthritis, present on admission. Stable. - Previously on prednisone 5-10 mg as needed for RA flare. Diabetes mellitus type II, non-insulin using, present on admission. Stable. - Hemoglobin A1c 7.3% and 04/2017. - Order low-dose correctional scale insulin. - Ordered heart healthy/carbohydrate consistent diet. BPH, present on admission. Stable. - Continue tamsulosin 0.4 mg daily at bedtime. Chronic lymphedema, present on admission. Stable. - Ordered wound care. Morbid obesity, present on admission. Stable. - BMI 51. - Immobile and in wheelchair. Continue Brittany lift. - Ordered physical therapy. Chronic pain with opiate of the situation, present on admission. Stable. - Patient has Charcot joint of left leg. - Continue oxymorphone 10 mg twice a day and oxycodone 10-325 mg 2 tablets every 6 hours as needed for breakthrough pain. Hyperlipidemia, present on admission. Stable. - Continue atorvastatin 40 mg daily at bedtime - Aspirin 81 mg daily. History of cardiomyopathy. - Continue spironolactone 12.5 mg daily. PRN antiemetics: Zofran and Maalox. PRN bowel regimen: Senna and MiraLAX. PRN analgesics: Tylenol. Disposition: Patient is currently noncompliant with blood glucose checks as the patient states that "he is got it under control" his last hemoglobin A1c was 7.3 done on 04/20/2017 a repeat has been done. The patient states that for now he will agree to having his blood sugars checked 3 times a day in order for the appropriate insulin regimen to be given to him per sliding scale. The patient was diagnosed with C. difficile here in the hospital. The patient does have a history of this and has been started on oral vancomycin. We will continue to follow up with the patient however his cellulitis is seen to be improving and he will most likely be discharged in the next 1-2 days. . VTE Prophylaxis: Theraputic Anticoag with Warfarin Resuscitation Status: CPR: Attempt Resuscitation Nargis Cannon DO Jul 06, 2017 15:09
--- NOTE | 2017-07-06 18:04 | NUR ---
non-compliant with S checks patient refused to have BS checked at lunch, despite reinforcing education on the importance of controlling BS especially with infections. patient still declined stating, "my BS are always the same". Attempted to discuss DM management techniques including diet, sick day management and BS checks. patient interrupted attempts to educate stating, "i have a good, health diet. I don't eats a lot of sweets". Dr Cannon notified. continue to attempt education on DM management.
[2017-07-06] MEDS: Vancomycin 100 mg/mL Oral Solution PO SCH ×2 (18:33→22:53)
[2017-07-06] MEDS: 0.9% Sodium Chloride 1,000 ML IV SCH (22:54)
[2017-07-07] VITALS (9 sets, daily range): BP systolic 106–151; BP diastolic 69–96; PULSE 75–95; RESP 11–22; O2SAT 94–100
[2017-07-07] MEDS: oxyCODONE-Acetamin 10-325 mg Tablet PO PRN ×2 (00:16→12:07)
[2017-07-07] MEDS: HYDROmorphone 1 mg/mL Inj IVPUSH PRN ×4 (02:21→19:50)
--- NOTE | 2017-07-07 02:46 | NUR ---
Pain Patient has reported 2-10/10 left leg/elbow pain. PRN Percocet and Dilaudid effective. Also placed pillows under affected areas.
[2017-07-07] MEDS: Vancomycin 100 mg/mL Oral Solution PO SCH ×4 (03:51→21:52)
[2017-07-07 06:12] LABS: INR 2.45 ratio
[2017-07-07 06:13] LABS: Mean Corpuscular Hemoglobin 26.5 pg (27.0-35.0); Mean Corpuscular Volume 84.5 fL (81-100)
--- NOTE | 2017-07-07 06:39 | NUR ---
Oxygen Patient's saturations drop briefly to mid 80's on room air while sleeping, then rise to mid 90's. Pulse oximeter alarms, patient is getting frustrated by noise. Educated patient on possible sleep apnea, patient reported that he does have MATTHEW. Patient asked to either have finger probe removed to to have oxygen. Placed 1.5L oxygen through nasal cannula at 0630.
[2017-07-07] MEDS: Insulin LISPRO 300 Unit/3 mL Inj SUBQ SCH ×4 (08:00→21:36)
[2017-07-07] MEDS: oxyCODONE ER 10 mg ER12 Tablet PO SCH ×3 (08:10→21:22)
[2017-07-07] MEDS ORDERED: MetoCLOpramide 5 mg/mL 2 mL Inj IVPUSH PRN (08:30)
--- NOTE | 2017-07-07 10:55 | PCM.PHAPRO ---
Progress Date of Service: Jul 07, 2017 Warfarin dosing . Date Jul 05-Jul 06-Jul 07-Jun INR 1.95 1.61 1.84 2.45 INR change -0.34 0.23 0.61 Warf Dose 7.5 7.5 7.5 5MG Linn Miller PharmD Jul 07, 2017 10:55
--- NOTE | 2017-07-07 13:09 | NUR ---
NUTRITION ASSESSMENT: ASSESS: 61 YO male admitted for n/v/diarrhea with C.Diff and possible gastroparesis v cholelithiasis v nephrolithiasis v mesenteric ischemia. PMHx: Morbid obesity, RLE DVT, Stage III chronic kidney disease, rheumatoid arthritis, DM type 2, Peripheral neuropathy. LABS: Reviewed. MEDS: Reviewed. GI: 7 BM 07/06. CURRENT WT: 220.5 kg. Adj BW: 136.25 kg.; Admit wt: 223kg BMI: 49.6 DIET: Heart Healthy, Diabetic. PO variable 0-100% x 3d EST. NEEDS: 5598-6657 kcals (20-25 kcals/kg Adj BW), 110-165 g protein (0.8-1.2 g/kg Adj BW) NUTRITION DIAGNOSIS: 1.) Inadequate oral intake related to altered GI tract function as evidenced by variable intake. NUTRITION INTERVENTION: 1.) Will add ensure at meals to encourage increased po intake. MONITOR / EVAL: PO intake, labs, nutritional status. Follow per moderate nutritional risk guidelines.
--- NOTE | 2017-07-07 15:17 | PCM.PNMED ---
Subjective Date of Service Jul 07, 2017 Subjective Patient was seen and examined at bedside today. Patient denies any chest pain, shortness of breath, nausea, vomiting, diarrhea. Patient was concerned this morning about his left lower extremity being more "wrinkled" however this is most likely secondary to the fact of the patient's lower extremity edema is decreasing and not that he is developing any type of gangrene or necrosis. Patient states that he is feeling better and improving daily. Overnight events: None Exam Vital Signs Vital Sign - Last Date Time Temp Pulse Resp B/P Pulse Ox O2 Delivery O2 Flow Rate FiO2 07/07/17 12:02 87 11 129/85 98 Nasal Cannula 1.50 07/07/17 07:52 36.5 Intake and Output 07/06/17 07/06/17 07/07/17 Cumulative From/Thru 15:00 23:00 07:00 07/04/17 01:24 - 07/07/17 05:44 Intake Total 650 ml 1419 ml 8519 ml Output Total 2150 ml 975 ml 7050 ml Balance -1500 ml 444 ml 1469 ml Intake Oral 650 ml 500 ml 3299 ml IV Total 919 ml 5220 ml Output Urine Total 2150 ml 975 ml 7050 ml # Bowel Movements 3 9 Exam Physical Exam: GEN: Patient was awake, alert, responding appropriately to questions HEENT: Pupils equal round and reactive to light, extraocular eye muscles intact , Neck soft supple, trachea midline, nomocephalic/atraumatic CV: +S1/S2, regular rate and rhythm, no murmurs auscultated Respiratory: CTAB, no wheezes, rales, rhonchi GI: +bowel sounds x4, soft, compressible, nontender to palpation, morbidly obese EXT: No clubbing, cyanosis, +1 nonpitting edema, good capillary refill in the right lower extremity, left lower extremity is currently in lymphedema wraps which are clean dry and intact, right lower extremity cellulitis still with a demarcation line. Neuro: Cranial nerves II-XII grossly intact Psych: mood and affect were appropriate IVs and Medications Medications Reviewed: Medications were reviewed in detail Lab and Diagnostics Result Diagram: 07/07/17 0510 07/07/17 0510 X-Rays, CTs and MRIs CT abdomen and pelvis without contrast [facility] read: Impression: Enlarged fatty liver. Cholelithiasis. Bilateral renal stones. Chuck Waller MD . PROCEDURE: US ABDOMEN, LIMITED ([id number]) FINDINGS: Gallbladder contains multiple stones and sludge. No gallbladder wall thickening. Gallbladder wall measures 2.6 mm. No pericholecystic fluid. No sonographic Moeller sign. Common bile duct measures 5.3 mm. IMPRESSION: Cholelithiasis without evidence of cholecystitis. Dictated by: Mayela Cameron MD, PhD on 07/05/2017 at 18:55 Approved by: Mayela Cameron MD, PhD on 07/05/2017 at 18:56 12-lead ECG EKG: Atrial fibrillation, heart rate 86, no pathological Q waves or acute ischemic changes such systolic elevation or depression. Assessment & Plan Juan Ramon Titus is a morbidly obese 61-year-old male with a past medical history significant for diabetes mellitus type II, non-insulin using, chronic atrial fibrillation on warfarin who presented to [facility] emergency department via EMS complaining of abdominal pain onset 3 years ago and was lower extremity cellulitis of the left leg Acute on chronic abdominal pain, poa. Active. - Patient presents with abdominal pain that has acutely worsened over the last month with accompanying nausea and decreased PO intake. - Differential diagnosis includes: Opiate-induced gastroparesis versus cholelithiasis versus nephrolithiasis versus chronic mesenteric ischemia. - CT abdomen and pelvis without contrast revealed bilateral renal stones the biggest 18 mm, cholelithiasis, enlarged fatty liver, and air in the non- dominant portion of the bladder. of note, the patient denies pneumaturia or self catherterization, therefore may want to consider fistula or gas forming microorganism in genitourinary tract. - Discontinue Relistor as the patient now has diarrhea - Abdominal ultrasound shows cholelithiasis without cholecystitis -Abdominal pain seems to have improved we will continue to monitor and limit narcotics as necessary Diarrhea secondary to Cdiff, not present on admission, active - C diff PCR positive -Continue contact precautions -Continue oral vancomycin 250 mg by mouth every 6 hours Acute UTI, poa, resolving -Discontinue ceftriaxone as this may also cause diarrhea - One-time dose of Fosamax - Cultures positive for Escherichia coli Acute right lower extremity non-purulent cellulitis, poa. Active. - Wound care following - Elevate lower extremity as much as tolerated. - Lactic acid mildly elevated at 2.9 on admit, normalized to 1.8 - Initial procalcitonin 1.44--> 1.64--> 0.97 today 0.65 currently trending down - Discontinue ceftriaxone as the patient now has diarrhea - Start linezolid 600 mg by mouth twice a day - nasal mrsa screen negative -Follow up labs in the morning Chronic problems: Chronic atrial fibrillation, present on admission. Stable. - History of right lower extremity DVT. - therapeutic with INR 2.45. - Continue warfarin -Continue to monitor Chronic kidney disease stage III, present on admission. Stable. - Baseline creatinine of around 1.3-1.5. Patient is currently below his baseline at 1.25 - Avoid nephrotoxic agents. - Discontinue IV fluids - Continue to monitor the patient for increasing creatinine Rheumatoid arthritis, present on admission. Stable. - Previously on prednisone 5-10 mg as needed for RA flare. Diabetes mellitus type II, non-insulin using, present on admission. Stable. - Hemoglobin A1c 7.3% and 04/2017. Currently hemoglobin A1c is 6.7 - Order low-dose correctional scale insulin. - Ordered heart healthy/carbohydrate consistent diet. - Accu-Cheks when necessary patient no longer wants to have Accu-Cheks regularly and as the patient has been consistently with blood sugars in the 130s or lower this cannot be switched to when necessary we will continue to follow blood glucose on the morning labs. BPH, present on admission. Stable. - Continue tamsulosin 0.4 mg daily at bedtime. Chronic lymphedema, present on admission. Stable. - Ordered wound care. Morbid obesity, present on admission. Stable. - BMI 51. - Immobile and in wheelchair. Continue Brittany lift. - Ordered physical therapy. Chronic pain with opiate habituation/opioid dependence, present on admission. Stable. - Patient has Charcot joint of left leg. - Continue oxymorphone 10 mg twice a day and oxycodone 10-325 mg 2 tablets every 6 hours as needed for breakthrough pain. Hyperlipidemia, present on admission. Stable. - Continue atorvastatin 40 mg daily at bedtime - Aspirin 81 mg daily. History of cardiomyopathy. - Continue spironolactone 12.5 mg daily. PRN antiemetics: Zofran and Maalox. PRN bowel regimen: Senna and MiraLAX. PRN analgesics: Tylenol. Disposition: The patient is currently doing well at this time. His procalcitonin is decreasing daily. The patient has been switched to oral medications and will continue to monitor patient for the next 1-2 days to ensure that he is still responding to oral antibiotics. If the patient continues to respond well he will be able to be discharged home with resumed home health and darling caregiving. VTE Prophylaxis: Theraputic Anticoag with Warfarin Resuscitation Status: CPR: Attempt Resuscitation Nargis Cannon DO Jul 07, 2017 15:17
--- NOTE | 2017-07-07 18:00 | NUR ---
Shift: VSS, a/o x3, tele afib 80s-130s, RA O2 sats 95%. Using urinal, voiding adequately, no BMs this shift. Pt requires encouragement to reposition in bed, reports being independent with bed mobility. Concerned about his LLE, complains that skin is wrinkled and has decreased mobility, notified, no new orders received. Care ongoing.
[2017-07-07] MEDS: Ondansetron 2 mg/mL 2 mL Inj IVPUSH PRN (19:50)
[2017-07-08] VITALS (7 sets, daily range): BP systolic 112–131; BP diastolic 68–90; PULSE 76–109; RESP 12–23; O2SAT 94–98
[2017-07-08] MEDS: HYDROmorphone 1 mg/mL Inj IVPUSH PRN (00:12)
[2017-07-08] MEDS: Vancomycin 100 mg/mL Oral Solution PO SCH ×4 (03:10→22:36)
[2017-07-08] MEDS: Ondansetron 2 mg/mL 2 mL Inj IVPUSH PRN ×2 (03:57→19:46)
[2017-07-08] MEDS: oxyCODONE-Acetamin 10-325 mg Tablet PO PRN ×3 (05:23→22:37)
[2017-07-08 05:26] LABS: Mean Corpuscular Hemoglobin 26.7 pg (27.0-35.0); Mean Corpuscular Volume 83.2 fL (81-100)
[2017-07-08 05:57] LABS: INR 3.17 ratio
--- NOTE | 2017-07-08 06:02 | NUR ---
Pain/Nausea/Tele Pt c/o general pain ranging from 6-7/10 px and was given Percocet 10-325mg x 2 tabs, Dilaudid 2mg IVP x 2 which was helpful per pt. Pt also c/o nausea x 2 receiving Zofran 8mg IVP with effective results. Tele: Afib hr 89 with occasional PVCs per technology strategist. Care ongoing.
--- NOTE | 2017-07-08 07:08 | PCM.PHAPRO ---
Progress . Warfarin Management: -inr returned supratherapeutic today, 3.17. will hold this evening's dose and monitor Michelle Jackson [facility] Jul 08, 2017 07:08
[2017-07-08] MEDS: Insulin LISPRO 300 Unit/3 mL Inj SUBQ SCH ×4 (08:00→22:00)
[2017-07-08] MEDS: oxyCODONE ER 10 mg ER12 Tablet PO SCH ×3 (08:30→23:18)
--- NOTE | 2017-07-08 12:46 | PCM.PNMED ---
Subjective Date of Service Jul 08, 2017 Subjective Patient was seen and examined at bedside today. Patient denies any chest pain, shortness of breath, nausea, vomiting, diarrhea. Overnight events: None Exam Vital Signs Vital Sign - Last Date Time Temp Pulse Resp B/P Pulse Ox O2 Delivery O2 Flow Rate FiO2 07/08/17 12:00 Supplement Oxygen 07/08/17 10:00 76 07/08/17 09:11 36.7 12 123/79 98 1.50 Intake and Output 07/07/17 07/07/17 07/08/17 Cumulative From/Thru 15:00 23:00 07:00 07/04/17 01:24 - 07/08/17 06:48 Intake Total 529 ml 655 ml 9703 ml Output Total 1325 ml 8375 ml Balance 529 ml -670 ml 1328 ml Intake Oral 336 ml 3635 ml IV Total 529 ml 269 ml 6018 ml Tube Irrigant 50 ml 50 ml Output Urine Total 1325 ml 8375 ml # Bowel Movements 1 10 Exam Physical Exam: GEN: Patient was awake, alert, responding appropriately to questions HEENT: Pupils equal round and reactive to light, extraocular eye muscles intact , Neck soft supple, trachea midline, nomocephalic/atraumatic CV: +S1/S2, regular rate and rhythm, no murmurs auscultated Respiratory: CTAB, no wheezes, rales, rhonchi GI: +bowel sounds x4, soft, compressible, nontender to palpation EXT: no clubbing, cyanosis, right lower extremity erythema significantly improved, positive lower extremity edema, +2/4 pulses dorsalis pedis, left lower extremity and lymphedema wraps clean dry and intact Neuro: Cranial nerves II-XII grossly intact Psych: mood and affect were appropriate IVs and Medications Medications Reviewed: Medications were reviewed in detail Lab and Diagnostics Result Diagram: 07/08/1751307/08/17513 X-Rays, CTs and MRIs CT abdomen and pelvis without contrast Nighthawk read: Impression: Enlarged fatty liver. Cholelithiasis. Bilateral renal stones. Chuck Waller MD . PROCEDURE: US ABDOMEN, LIMITED ([id number]) FINDINGS: Gallbladder contains multiple stones and sludge. No gallbladder wall thickening. Gallbladder wall measures 2.6 mm. No pericholecystic fluid. No sonographic Moeller sign. Common bile duct measures 5.3 mm. IMPRESSION: Cholelithiasis without evidence of cholecystitis. Dictated by: Mayela Cameron MD, PhD on 07/05/2017 at 18:55 Approved by: Mayela Cameron MD, PhD on 07/05/2017 at 18:56 12-lead ECG EKG: Atrial fibrillation, heart rate 86, no pathological Q waves or acute ischemic changes such systolic elevation or depression. Assessment & Plan Juan Ramon Titus is a morbidly obese 61-year-old male with a past medical history significant for diabetes mellitus type II, non-insulin using, chronic atrial fibrillation on warfarin who presented to [facility] emergency department via EMS complaining of abdominal pain onset 3 years ago and was lower extremity cellulitis of the left leg Acute on chronic abdominal pain, poa. Active. - Patient presents with abdominal pain that has acutely worsened over the last month with accompanying nausea and decreased PO intake. - Differential diagnosis includes: Opiate-induced gastroparesis versus cholelithiasis versus nephrolithiasis versus chronic mesenteric ischemia. - CT abdomen and pelvis without contrast revealed bilateral renal stones the biggest 18 mm, cholelithiasis, enlarged fatty liver, and air in the non- dominant portion of the bladder. of note, the patient denies pneumaturia or self catherterization, therefore may want to consider fistula or gas forming microorganism in genitourinary tract. - Discontinue Relistor as the patient now has diarrhea - Abdominal ultrasound shows cholelithiasis without cholecystitis -Abdominal pain seems to have improved we will continue to monitor and limit narcotics as necessary Diarrhea secondary to Cdiff, not present on admission, active - C diff PCR positive -Continue contact precautions -Continue oral vancomycin 250 mg by mouth every 6 hours Acute UTI, poa, resolving -Discontinue ceftriaxone as this may also cause diarrhea - One-time dose of Fosamax - Cultures positive for Escherichia coli Acute right lower extremity non-purulent cellulitis, poa. Active. - Wound care following - Elevate lower extremity as much as tolerated. - Lactic acid mildly elevated at 2.9 on admit, normalized to 1.8 - Initial procalcitonin 1.44 today 0.46 currently trending down - Discontinue ceftriaxone as the patient now has diarrhea - Continue linezolid 600 mg by mouth twice a day - nasal mrsa screen negative -Follow up labs in the morning Chronic problems: Chronic atrial fibrillation, present on admission. Stable. - History of right lower extremity DVT. - therapeutic with INR 2.45. - Continue warfarin -Continue to monitor Chronic kidney disease stage III, present on admission. Stable. - Baseline creatinine of around 1.3-1.5. Patient is currently below his baseline at 1.15 WNL - Avoid nephrotoxic agents. - Discontinue IV fluids (07/07/17) - Continue to monitor the patient for increasing creatinine Rheumatoid arthritis, present on admission. Stable. - Previously on prednisone 5-10 mg as needed for RA flare. Diabetes mellitus type II, non-insulin using, present on admission. Stable. - Hemoglobin A1c 7.3% and 04/2017. Currently hemoglobin A1c is 6.7 - Order low-dose correctional scale insulin. - Ordered heart healthy/carbohydrate consistent diet. - Accu-Cheks when necessary patient no longer wants to have Accu-Cheks regularly and as the patient has been consistently with blood sugars in the 130s or lower this cannot be switched to when necessary we will continue to follow blood glucose on the morning labs. BPH, present on admission. Stable. - Continue tamsulosin 0.4 mg daily at bedtime. Chronic lymphedema, present on admission. Stable. - Ordered wound care. Morbid obesity, present on admission. Stable. - BMI 51. - Immobile and in wheelchair. Continue Brittany lift. - Ordered physical therapy. Chronic pain with opiate habituation/opioid dependence, present on admission. Stable. - Patient has Charcot joint of left leg. - Continue oxymorphone 10 mg twice a day and oxycodone 10-325 mg 2 tablets every 6 hours as needed for breakthrough pain. Hyperlipidemia, present on admission. Stable. - Continue atorvastatin 40 mg daily at bedtime - Aspirin 81 mg daily. History of cardiomyopathy. - Continue spironolactone 12.5 mg daily. PRN antiemetics: Zofran and Maalox. PRN bowel regimen: Senna and MiraLAX. PRN analgesics: Tylenol. Disposition: The patient is currently doing well at this time. His procalcitonin is decreasing daily. The patient has been switched to oral medications and seems to be tolerating this well. The patient will most likely be discharged home tomorrow with resumed home health and IRENE caregiving. VTE Prophylaxis: Theraputic Anticoag with Warfarin Resuscitation Status: CPR: Attempt Resuscitation Nargis Cannon DO Jul 08, 2017 12:46 Nargis Cannon DO Jul 08, 2017 12:46
--- NOTE | 2017-07-08 13:09 | NUR ---
Mentation Pt alert to self. When I asked where she was at she states, "you are in the refrigerator.." Disoriented. She answered who the president was correctly. Equal strength noted to both bilateral legs and hands, no unilateral drift noted to arms. Care ongoing. Addendum: 07/08/17 at 1311 by ARIANA WOOD RN Disregard note above, Wrong patient.
--- NOTE | 2017-07-08 13:11 | NUR ---
Disregard mentation note below. WRONG PT!
--- NOTE | 2017-07-08 15:34 | NUR ---
Mentation/Pain Pt has been sleeping most of the day. Passive to care. Pt states he hardly slept last night. Appetite has been poor although he does have a full applesauce with his oral Vanco. Pain has ranged between 4-5/10 today. Q6hr PRN Percocet has kept pain tolerable. Tele 80's when he moves around in bed HR can jump up to 140's.
[2017-07-09 02:04] VITALS: BP 130/78; PULSE 91; RESP 17; O2SAT 94
[2017-07-09] MEDS: HYDROmorphone 1 mg/mL Inj IVPUSH PRN (03:08)
[2017-07-09] MEDS: Vancomycin 100 mg/mL Oral Solution PO SCH ×2 (04:00→08:37)
[2017-07-09 04:44] VITALS: BP 117/72; PULSE 102; RESP 15; O2SAT 97
--- NOTE | 2017-07-09 05:15 | NUR ---
Nausea/Pain Pt reporting nausea, medicate pt with 8mg IV zofran. Pt stating no relief from nausea after medication admin, medicated pt with 10mg IV reglan. Pt reports no nausea after medication admin. Pt reports pain 7/10 to shoulder and knees. Medicated pt with 2 mg IV zofran. Pt stating pain decreased to 6/10 after medication admin. Call light within reach, frequent rounding.
[2017-07-09 05:34] VITALS: PULSE 102
[2017-07-09 05:58] LABS: BASOPHILS % (AUTO) 0.2 % (0-3); EOSINOPHILS % (AUTO) 3.2 % (0-5); MONOCYTES % (AUTO) 9.8 % (4-12); Mean Corpuscular Hemoglobin 26.3 pg (27.0-35.0); Mean Corpuscular Volume 83.8 fL (81-100); NEUTROPHILS % (AUTO) 69.3 % (40-74); Platelet Count 152 bil/L (150-400)
[2017-07-09 06:14] LABS: INR 3.65 ratio
--- NOTE | 2017-07-09 06:47 | PCM.PHAPRO ---
Progress . Warfarin Management: -inr remains supratherapeutic, trending up today to 3.65. will hold dose this evening and follow Michelle Jackson [facility] Jul 09, 2017 06:47
[2017-07-09] MEDS: Insulin LISPRO 300 Unit/3 mL Inj SUBQ SCH ×2 (07:43→11:02)
[2017-07-09] MEDS: oxyCODONE ER 10 mg ER12 Tablet PO SCH (08:37)
[2017-07-09] MEDS: oxyCODONE-Acetamin 10-325 mg Tablet PO PRN (08:46)
[2017-07-09 08:48] VITALS: BP 109/70; PULSE 89; RESP 16; O2SAT 99
[2017-07-09 10:13] VITALS: PULSE 93
[2017-07-09] MEDS ORDERED: LINE600T2 PO (11:03)
[2017-07-09] MEDS ORDERED: VANC250C3 PO (11:03)
--- NOTE | 2017-07-09 11:08 | PCM.DIMED ---
Discharge Instructions Date of Service Jul 09, 2017 Dates of Hospitalization Jul 04, 2017 at 05:04 Discharge Diagnosis Discharge Diagnosis Acute on chronic abdominal pain Diarrhea secondary to Cdiff Acute UTI Acute right lower extremity non-purulent cellulitis Chronic atrial fibrillation Chronic kidney disease stage III Rheumatoid arthritis Diabetes mellitus type II, non-insulin using BPH Chronic lymphedema Morbid obesity Hyperlipidemia History of cardiomyopathy Medication Instructions Additional med instructions Please take all of your medications as prescribed and do not leave any left over medications. Diet Discharge Diet: Diabetic Activity Discharge Activity: Home Health Phyical Therapy Call your provider Call your provider for: Fever or Chills, Shortness of breath, Chest pain, Excessive diarrhea, Weakness (unilateral) Patient Instructions Follow-up Provider: [facility] Follow-up with PCP in: 2 weeks (If an appointment has not been made please call to schedule an appointment) Nargis Cannon DO Jul 09, 2017 11:08
--- NOTE | 2017-07-09 11:09 | PCM.DC.MED ---
Discharge Summary Date of Service Jul 09, 2017 Dates of Hospitalization Date of Hospital Admission Jul 04, 2017 at 05:04 Date of Discharge: Jul 09, 2017 Providers: Admitting Physician: Leilani Orellana MD Primary Care Physician: Odilon Moore DO Attending Physician: Nargis Cannon DO Diagnosis at Time of Discharge Diagnosis at Time of Discharge Acute on chronic abdominal pain most likely secondary to cholelithiasis and opioid-induced gastroparesis Diarrhea secondary to Cdiff Acute UTI Acute right lower extremity non-purulent cellulitis Chronic atrial fibrillation Chronic kidney disease stage III Rheumatoid arthritis Diabetes mellitus type II, non-insulin using BPH Chronic lymphedema Morbid obesity Hyperlipidemia Chronic pain and opioid dependent History of cardiomyopathy Procedures XRay, CTs & MRIs CT abdomen and pelvis without contrast Nighthawk read: Impression: Enlarged fatty liver. Cholelithiasis. Bilateral renal stones. Chuck Waller MD . PROCEDURE: US ABDOMEN, LIMITED ([id number]) FINDINGS: Gallbladder contains multiple stones and sludge. No gallbladder wall thickening. Gallbladder wall measures 2.6 mm. No pericholecystic fluid. No sonographic Moeller sign. Common bile duct measures 5.3 mm. IMPRESSION: Cholelithiasis without evidence of cholecystitis. Dictated by: Mayela Cameron MD, PhD on 07/05/2017 at 18:55 Approved by: Mayela Cameron MD, PhD on 07/05/2017 at 18:56 ECG 12 Lead EKG: Atrial fibrillation, heart rate 86, no pathological Q waves or acute ischemic changes such systolic elevation or depression. Brief History Juan Ramon Titus is a morbidly obese 61-year-old male with a past medical history significant for diabetes mellitus type II, non-insulin using, chronic atrial fibrillation on warfarin who presented to [facility] emergency department via EMS complaining of abdominal pain onset 3 years ago. He complains of associated severe nausea, vomiting, weight loss, and constipation. He describes the abdominal pain as dull in quality. It worsens after meals especially large meals. The pain is located diffusely throughout the left side of his abdomen and does not radiate. He reports he is able to eat very little and as a result does not urinate as much or have bowel movements as often. While admitted it was found that the patient had cholelithiasis with a gallbladder stone 18 mm. The patient also has what appears to be opioid- induced gastroparesis. The patient was also diagnosed with a UTI positive for Escherichia coli and treated with ceftriaxone. The patient also complained of left lower extremity pain and erythema and was diagnosed with left lower extremity cellulitis. Patient was started on IV antibiotics and the erythema on the leg started to recede from the demarcated line of infection; however, the patient started to have diarrhea and tested positive for C. difficile. The patient's antibiotics were changed from IV ceftriaxone to by mouth linezolid and the patient seemed to respond to this medication therapy. The patient was also treated for C. difficile and his diarrhea significantly slowed down. The patient has a history of diabetes and his hemoglobin A1c was 6.7 on 2016. At that time the patient a longer needed Accu-Cheks and was not receiving any insulin for correction as it was not needed. The patient was encouraged to continue weight loss and good diet habits in order to maintain his A1c at 6.7 or below. The patient is being discharged home in stable condition to resume his home health and darling caregiving and to complete a ten-day course of oral vancomycin as well as to finish out his course of linezolid for the lower extremity cellulitis. Hospital Course Juan Ramon Titus is a morbidly obese 61-year-old male with a past medical history significant for diabetes mellitus type II, non-insulin using, chronic atrial fibrillation on warfarin who presented to [facility] emergency department via EMS complaining of abdominal pain onset 3 years ago and was lower extremity cellulitis of the left leg Acute on chronic abdominal pain, poa. Active. - Patient presents with abdominal pain that has acutely worsened over the last month with accompanying nausea and decreased PO intake. - Differential diagnosis includes: Opiate-induced gastroparesis versus cholelithiasis versus nephrolithiasis versus chronic mesenteric ischemia. - CT abdomen and pelvis without contrast revealed bilateral renal stones the biggest 18 mm, cholelithiasis, enlarged fatty liver, and air in the non- dominant portion of the bladder. of note, the patient denies pneumaturia or self catherterization, therefore may want to consider fistula or gas forming microorganism in genitourinary tract. - Discontinue Relistor as the patient now has diarrhea - Abdominal ultrasound shows cholelithiasis without cholecystitis -Abdominal pain seems to have improved we will continue to monitor and limit narcotics as necessary Diarrhea secondary to Cdiff, not present on admission, active - C diff PCR positive -Continue contact precautions -Continue oral vancomycin 250 mg by mouth every 6 hours Acute UTI, poa, resolving -Discontinue ceftriaxone as this may also cause diarrhea - One-time dose of Fosamax - Cultures positive for Escherichia coli Acute right lower extremity non-purulent cellulitis, poa. Active. - Wound care following - Elevate lower extremity as much as tolerated. - Lactic acid mildly elevated at 2.9 on admit, normalized to 1.8 - Initial procalcitonin 1.44 today 0.46 currently trending down - Discontinue ceftriaxone as the patient now has diarrhea - Continue linezolid 600 mg by mouth twice a day - nasal mrsa screen negative Chronic problems: Chronic atrial fibrillation, present on admission. Stable. - History of right lower extremity DVT. - therapeutic with INR 2.45. - Continue warfarin Chronic kidney disease stage III, present on admission. Stable. - Baseline creatinine of around 1.3-1.5. Patient is currently below his baseline at 1.14 WNL - Avoid nephrotoxic agents. - Discontinue IV fluids (07/07/17) - Continue to monitor the patient for increasing creatinine Rheumatoid arthritis, present on admission. Stable. - Previously on prednisone 5-10 mg as needed for RA flare. Diabetes mellitus type II, non-insulin using, present on admission. Stable. - Hemoglobin A1c 7.3% and 04/2017. Currently hemoglobin A1c is 6.7 - Low-dose correctional scale insulin. - Ordered heart healthy/carbohydrate consistent diet. - Accu-Cheks when necessary patient no longer wants to have Accu-Cheks regularly and as the patient has been consistently with blood sugars in the 130s or lower this cannot be switched to when necessary we will continue to follow blood glucose on the morning labs. BPH, present on admission. Stable. - Continue tamsulosin 0.4 mg daily at bedtime. Chronic lymphedema, present on admission. Stable. - Ordered wound care. Morbid obesity, present on admission. Stable. - BMI 51. - Immobile and in wheelchair. Continue Brittany lift. - Ordered physical therapy. Chronic pain with opiate habituation/opioid dependence, present on admission. Stable. - Patient has Charcot joint of left leg. - Continue oxymorphone 10 mg twice a day and oxycodone 10-325 mg 2 tablets every 6 hours as needed for breakthrough pain. Hyperlipidemia, present on admission. Stable. - Continue atorvastatin 40 mg daily at bedtime - Aspirin 81 mg daily. History of cardiomyopathy. - Continue spironolactone 12.5 mg daily. PRN antiemetics: Zofran and Maalox. PRN bowel regimen: Senna and MiraLAX. PRN analgesics: Tylenol. Disposition: The patient is currently doing well at this time. His procalcitonin is decreasing daily. The patient has been switched to oral medications and seems to be tolerating this well. The patient will most likely be discharged home tomorrow with resumed home health and DARLING caregiving. Exam Vital Signs (Last) Date Time Temp Pulse Resp B/P Pulse Ox O2 Delivery O2 Flow Rate FiO2 07/09/17 10:13 93 07/09/17 08:48 36.8 16 109/70 99 Room Air 07/09/17 04:44 1.50 Exam Physical Exam: GEN: Patient was awake, alert, responding appropriately to questions HEENT: Pupils equal round and reactive to light, extraocular eye muscles intact , Neck soft supple, trachea midline, nomocephalic/atraumatic CV: +S1/S2, regular rate and rhythm, no murmurs auscultated Respiratory: CTAB, no wheezes, rales, rhonchi GI: +bowel sounds x4, soft, compressible, nontender to palpation EXT: no clubbing, cyanosis, left lower extremity erythema significantly improved patient's leg is now blanchable and pink, positive lower extremity edema, +2/4 pulses dorsalis pedis, right lower extremity in lymphedema wraps clean dry and intact, left 3rd toe positive eschar stable since admission. Neuro: Cranial nerves II-XII grossly intact Psych: mood and affect were appropriate Test 07/04/17 06:54 07/04/17 08:20 07/06/17 05:05 07/07/17 05:10 Urine Color Yellow (YELLOW) Urine Appearance Cloudy (CLEAR,HAZY) Urine pH 6.0 (5.0-8.0) Urine Specific Patterson 1.010 (1.003-1.035) Urine Protein Negativemg/dL (NEG,TRACE) Urine Glucose (UA) Negativemg/dL (NEGATIVE) Urine Ketones Negativemg/dL (NEGATIVE) Urine Occult Blood Small (NEGATIVE) Urine Nitrite Positive (NEGATIVE) Urine Bilirubin Negative (NEGATIVE) Urine Urobilinogen Normalmg/dL (NORMAL) Urine Leukocyte Esterase Large (NEGATIVE) Urine RBC 0-2/hpf (0-2) Urine WBC 11-50/hpf (0-5) Urine Epithelial Cells Occasional/hpf (NONE-MOD) Urine Crystals None seen (NONE SEEN) Urine Bacteria Many/hpf (NONE-FEW) Urine Hyaline Casts None/lpf (NONE) Urine Granular Casts None seen (NONE SEEN) Urine Waxy Casts None seen (NONE SEEN) Urine Red Blood Cell Casts None seen (NONE SEEN) Urine White Blood Cell Casts None seen (NONE SEEN) Urine Mucus None seen (None Seen) Urine Trichomonas None seen (NONE SEEN) Urine Yeast None (NONE SEEN) Urinalysis Comment None Urine Culture Reflexed Indicated Lactic Acid Level 1.8mmol/L (0.4-2.0) Hemoglobin A1c 6.7% (4.8-5.6) Lipase 28U/L (13-60) Magnesium Level 1.7mg/dL (1.6-2.6) Test 07/09/17 05:40 White Blood Count 5.0th/mm3 (3.8-10.1) Red Blood Count 3.95mil/mm3 (4.40-5.80) Hemoglobin 10.4g/dL (13.8-17.2) Hematocrit 33.1% (41.0-50.0) Mean Corpuscular Volume 83.8fL (81-100) Mean Corpuscular Hemoglobin 26.3pg (27.0-35.0) Mean Corpuscular Hemoglobin Concent 31.4% (32.0-37.0) Red Cell Distribution Width 17.2% (12.3-15.4) Platelet Count 152bil/L (150-400) Neutrophils (%) (Auto) 69.3% (40-74) Lymphocytes (%) (Auto) 16.9% (14-46) Monocytes (%) (Auto) 9.8% (4-12) Eosinophils (%) (Auto) 3.2% (0-5) Basophils (%) (Auto) 0.2% (0-3) Prothrombin Time 40.1sec (8.1-12.5) Prothromb Time International Ratio 3.65ratio Sodium Level 140mEq/L (134-144) Potassium Level 3.7mEq/L (3.5-5.2) Chloride Level 99mEq/L (97-108) Carbon Dioxide Level 27mmol/L (18-29) Blood Urea Nitrogen 8mg/dL (8-27) Creatinine 1.14mg/dL (0.76-1.27) Estimat Glomerular Filtration Rate 69mL/min (>59) Glucose Level 111mg/dL (60-99) Calcium Level 7.9mg/dL (8.5-10.1) Total Bilirubin 0.3mg/dL (0.0-1.2) Aspartate Amino Transf (AST/SGOT) 26U/L (0-50) Alanine Aminotransferase (ALT/SGPT) 9U/L (0-44) Alkaline Phosphatase 85U/L (25-160) Total Protein 6.2g/dL (6.4-8.4) Albumin 2.9g/dL (3.4-5.0) Procalcitonin 0.34ng/mL (0.00-0.08) Discharge Medications Discharge Medications Allopurinol (Allopurinol) 100 Mg Tablet 100 MG PO DAILY (Reported) Aspirin (Aspirin) 325 Mg Tablet 325 MG PO DAILY (Reported) Atorvastatin Calcium (Atorvastatin Calcium) 40 Mg Tablet 40 MG PO HS Prescribed by: EMERITA CORCORAN MD Carvedilol (Carvedilol) 6.25 Mg Tablet 6.25 MG PO BID (Reported) Cholecalciferol (Vitamin D3) (Vitamin D3) 2,000 Unit Capsule 2,000 UNIT PO DAILY (Reported) Ferrous Sulfate (Ferrous Sulfate) 325 Mg Tablet.dr 325 MG PO BID (Reported) Linezolid (Zyvox) 600 Mg Tablet 600 MG PO BID Prescribed by: NARGIS CANNON DO Metformin (Metformin) 850 Mg Tablet 850 MG PO BID (Reported) Multivits-Min/FA/Lycopene/Lut (Centrum Silver Tablet) 1 Each Tablet 1 EACH PO DAILY (Reported) Oxymorphone (Oxymorphone) 10 Mg Tablet 10 MG PO BID (Reported) Potassium Chloride (Potassium Chloride) 10 Meq Capsule.er 10 MEQ PO BID ( Reported) TAKE WITH FOOD Tamsulosin (Flomax) 0.4 Mg Capsule 0.4 MG PO HS Prescribed by: EMERITA CORCORAN MD Torsemide (Torsemide) 20 Mg Tablet 20 MG PO BID (Reported) Vancomycin (Vancomycin) 250 Mg Capsule 250 MG PO QID Prescribed by: NARGIS CANNON DO Warfarin Sodium (Warfarin Sodium) 5 Mg Tablet 5 MG PO TU,TH Sat (Reported) Warfarin Sodium (Warfarin Sodium) 5 Mg Tablet 2.5 MG PO Alexis,Mo,We,Fri (Reported) As needed Calcium Carbonate (Tums) 500 Mg Tab.chew 500-1,000 MG PO every two days PRN PRN For Dyspepsia or Heartburn (Reported) Nitroglycerin SL (Nitroglycerin SL) 0.4 Mg Tab.subl 0.4 MG SL Q5MIN PRN PRN For Chest Pain (Reported) Prednisone (PredniSONE) 5 Mg Tab 5-10 MG PO DAILY PRN PRN RA flare up (Reported ) Sennosides (Senna) 8.6 Mg Tablet 17.2 MG PO BID PRN PRN For Constipation ( Reported) oxyCODONE-Acetaminophen 10-325 mg (oxyCODONE-Acetaminophen 10-325 mg) 1 Each Tablet 2 TABLET PO Q6H PRN PRN For Pain (Reported) Additional med instructions Please take all of your medications as prescribed and do not leave any left over medications. Followup Plan Discharge Diet: Diabetic Discharge Activity: Home Health Phyical Therapy Follow-up Provider: [facility] Follow-up with PCP in: 2 weeks (If an appointment has not been made please call to schedule an appointment) Time spent Greater than 35 minutes copies to: [facility] Nargis Cannon DO Jul 09, 2017 11:09
[2017-07-09 12:01] VITALS: BP 135/92; PULSE 90; RESP 20; O2SAT 98
--- NOTE | 2017-07-09 12:19 | NUR ---
Social Work: Discharge Data: EMR reviewed. Patient is on day 5 of hospitalization for pain and celulitis per H&P. Patient was reviewed in morning rounds. Patient has been deemed medically stable per MD. Prior to admission, patient was active with [facility] and [facility] for RN and PT. SW has called [facility] and left a message for Madi informing him of patient's discharge and MD's order for resumption of care. Patient requires BLS transportation to home address. NELI has arranged transportation through [facility]. NELI was quoted a pickup time of 20-25 minutes. BLS has been completed by . NELI has informed charge lpn Librado of pickup time due to assigned RN being with another patient. Patient has no additional needs at this time. Assessment: Patient will discharge home with resumption of [facility] and [facility]. Plan: Patient to discharge home today. Transportation will be provided by [facility]. MD has ordered HH services to be resumed with [facility] . Patient has no additional needs at this time. CATARINO Hutchinson
--- NOTE | 2017-07-09 13:05 | NUR ---
Discharge Pt d/c home at 1230 with BLS. Pt is wc bound at baseline. IV d/cd. VSS. All personal belongings left with pt. Discharge discussed with pt, pt denied having questions. Hard copy Rx left with pt.
== END 2017-07-09 12:30 | disposition home health service (06) ==
LOC: SED 01:18 → EDBD 01:18 → MPC 05:04 → OBSVTOIN 05:04
PROVIDERS: ADMIT Specialist; ATTEND Specialist
DX: K80.20 Calculus of gallbladder without cholecystitis without obstruction (principal); N39.0 Urinary tract infection, site not specified; I42.9 Cardiomyopathy, unspecified; E11.628 Type 2 diabetes mellitus with other skin complications; N17.9 Acute kidney failure, unspecified; A04.7 Enterocolitis due to Clostridium difficile; F11.20 Opioid dependence, uncomplicated; N18.3 Chronic kidney disease, stage 3 (moderate); L03.115 Cellulitis of right lower limb; Z68.42 Body mass index [BMI] 45.0-49.9, adult; B96.20 Unspecified Escherichia coli [E. coli] as the cause of diseases classified elsewhere; T40.2X5A Adverse effect of other opioids, initial encounter; K31.84 Gastroparesis; I48.2 Chronic atrial fibrillation; M06.9 Rheumatoid arthritis, unspecified; E66.01 Morbid (severe) obesity due to excess calories; E78.5 Hyperlipidemia, unspecified; G89.29 Other chronic pain; N40.0 Benign prostatic hyperplasia without lower urinary tract symptoms